=== PATIENT | female | born 1975 | race Caucasian/White ===

== ENCOUNTER → 2017-07-12 | Outpatient (REF) | payer OTHER ==
[2017-07-12 14:02] LABS: URIC ACID 4.2 MG/DL (2.6-6.0)
[2017-07-12 14:02] LABS: C REACTIVE PROTEIN QUANTITATIV 0.82 MG/DL (0.00-0.30); RHEUMATOID FACTOR QUANT < 10.0 IU/ML (0-15.0)
[2017-07-12 14:06] LABS: ERYTHROCYTE SEDIMENTATION RATE 8 mm/hr (0-20)
== END ==
LOC: M LABDRAW1 11:28
DX: M65.311 Trigger thumb, right thumb (principal)

== ENCOUNTER → 2017-08-23 | Outpatient (CLI) | payer OTHER | LOC: M WUC 16:11 | DX: S80.12XA Contusion of left lower leg, initial encounter (principal); X58.XXXA Exposure to other specified factors, initial encounter; Y92.89 Other specified places as the place of occurrence of the external cause | CPT/HCPCS: 73590 ==

== ENCOUNTER → 2017-10-22 | Outpatient (CLI) | payer OTHER | LOC: M WUC 16:35 | DX: S86.111A Strain of other muscle(s) and tendon(s) of posterior muscle group at lower leg level, right leg, initial encounter (principal); X58.XXXA Exposure to other specified factors, initial encounter; Y92.89 Other specified places as the place of occurrence of the external cause | CPT/HCPCS: 73564 ==

== ENCOUNTER → 2017-10-27 | Outpatient (CLI) | payer OTHER | LOC: M RAD 10:42 | DX: N93.8 Other specified abnormal uterine and vaginal bleeding (principal); N85.4 Malposition of uterus | CPT/HCPCS: 76856 ==

== ENCOUNTER → 2017-11-18 | Outpatient (CLI) | payer OTHER | LOC: M RAD 15:10 | DX: S86.111D Strain of other muscle(s) and tendon(s) of posterior muscle group at lower leg level, right leg, subsequent encounter (principal); X58.XXXA Exposure to other specified factors, initial encounter; Y92.9 Unspecified place or not applicable; Y93.9 Activity, unspecified; Y99.9 Unspecified external cause status ==

== ENCOUNTER 2019-02-17 20:50 | Emergency (ER) | payer OTHER ==
[~2019-02-17] VITALS: Ht 160 cm; Wt 79.5 kg
[~2019-02-17 20:50] MED LIST: AZEL1SPR3; BUPR150T5 PO; BUPR1TAB53 PO; ESCI20TA PO; EXCETAB80 PO; MAXA10TA15 PO; OMEP40CA2 PO; VESI5TAB2 PO; XYZA5TAB2 PO
[2019-02-17] MEDS ORDERED: TETRACAINE 0.5% OPHTH SOLN 4ML OU ONE (21:45)
[2019-02-17] MEDS ORDERED: ACETAMINOPHEN 500 MG TAB PO ONE (22:30)
[2019-02-17 22:40] VITALS: BP 121/74
== END 2019-02-17 22:42 | disposition home or self-care (01) ==
LOC: M ED 20:50
DX: G43.109 Migraine with aura, not intractable, without status migrainosus (principal); Z77.098 Contact with and (suspected) exposure to other hazardous, chiefly nonmedicinal, chemicals; Z79.899 Other long term (current) drug therapy; Z91.89 Other specified personal risk factors, not elsewhere classified; Z88.8 Allergy status to other drugs, medicaments and biological substances

== ENCOUNTER → 2019-03-07 | Outpatient (REF) | payer OTHER ==
[2019-03-09 14:07] LABS: HPV HYBRID CAPTURE II Negative (Negative)
== END ==
LOC: M LAB REF 17:21
PROVIDERS: ATTEND Specialist
DX: Z12.4 Encounter for screening for malignant neoplasm of cervix (principal); N76.0 Acute vaginitis
CPT/HCPCS: 87624; G0123

== ENCOUNTER → 2019-05-12 | Outpatient (CLI) | payer OTHER ==
[~2019-05-12] MED LIST changes: -OMEP40CA2 PO; +OMEP40CA97 PO
--- NOTE | 2019-05-12 16:43 | REP ---
Two-view chest: 05/12/2019. Indication: Dyspnea. Cough. Comparison: 03/04/2016. Findings: The lungs are clear. There is no pleural effusion or pneumothorax. The cardiomediastinal silhouette is unremarkable. Impression: No acute cardiopulmonary process. Electronically Signed by Guy Louis DO 05/12/2019 04:34 P
== END ==
LOC: M WUC 15:29
PROVIDERS: ATTEND Physician Assistant
DX: R06.02 Shortness of breath (principal); R05 Cough

== ENCOUNTER → 2019-10-03 | Outpatient (CLI) | payer OTHER ==
--- NOTE | 2019-10-03 15:30 | REP ---
LEFT SECOND DIGIT, FOUR VIEWS: Four views of the left second digit performed. No acute fracture, dislocation or intrinsic bone disease is seen. IMPRESSION: No evidence of acute fracture or dislocation. Electronically Signed by Jeremiah Hollins MD 10/03/2019 03:36 P
== END ==
LOC: M WUC 15:03
PROVIDERS: ATTEND Physician Assistant Medical
DX: M79.645 Pain in left finger(s) (principal)

== ENCOUNTER 2020-05-03 22:23 | Emergency (ER) | payer OTHER ==
[~2020-05-03] VITALS: Ht 160 cm; Wt 97.9 kg
[~2020-05-03 22:23] MED LIST changes: +CONT1TAB PO; +MONT10TA4 PO; +ZONI25CA13 PO
[2020-05-03 23:34] LABS: BASO # 0.1 10^3/uL (0.0-0.2); BASO % 0.6 % (0.0-1.0); EOS # 0.8 10^3/uL (0.0-0.5); EOS % 6.2 % (0.0-3.0); HEMATOCRIT 39.9 % (36.0-47.0); HEMOGLOBIN 13.1 g/dl (12.0-15.5); LYMPH # 3.2 10^3/uL (1.5-5.0); LYMPH % 25.4 % (24.0-44.0); MEAN CORPUSCULAR HEMOGLOBIN 30.3 pg (27.0-33.0); MEAN CORPUSCULAR HGB CONC 32.8 g/dl (32.0-36.5); MEAN CORPUSCULAR VOLUME 92.1 fl (80.0-96.0); MONO # 0.8 10^3/uL (0.0-0.8); MONO % 6.4 % (0.0-5.0); NEUTROPHILS # 7.7 10^3/uL (1.5-8.5); PLATELET COUNT, AUTOMATED 436 10^3/uL (150-450); RED BLOOD COUNT 4.33 10^6/uL (4.00-5.40); WHITE BLOOD COUNT 12.5 10^3/uL (4.0-10.0)
[2020-05-03 23:44] LABS: INR 0.95; PROTHROMBIN TIME 12.9 SECONDS (12.5-14.3)
[2020-05-03 23:51] LABS: HCG, SERUM QUALITATIVE NEGATIVE (NEGATIVE)
[2020-05-03 23:57] LABS: ALBUMIN 3.8 GM/DL (3.2-5.2); ALT/SGPT 56 U/L (12-78); BILIRUBIN,DIRECT 0.1 MG/DL (0.0-0.2); BILIRUBIN,TOTAL 0.3 MG/DL (0.2-1.0); BLOOD UREA NITROGEN 12 MG/DL (7-18); CALCIUM LEVEL 9.6 MG/DL (8.5-10.1); CARBON DIOXIDE LEVEL 29 MEQ/L (21-32); CHLORIDE LEVEL 101 MEQ/L (98-107); CK-MB VALUE MASS 1.1 NG/ML (<3.6); CPK CREATINE PHOSPHOKINASE 90 U/L (26-192); CREATININE FOR GFR 0.88 MG/DL (0.55-1.30); FREE T4 0.81 NG/DL (0.76-1.46); GLOMERULAR FILTRATION RATE > 60.0 (>58); GLUCOSE, FASTING 103 MG/DL (70-100); LIPASE 99 U/L (73-393); MB/CK RELATIVE INDEX 1.22 (< OR =4); NT-PRO BNP 42 PG/ML (<125); POTASSIUM SERUM 4.1 MEQ/L (3.5-5.1); SODIUM LEVEL 136 MEQ/L (136-145); TOTAL PROTEIN 7.5 GM/DL (6.4-8.2); TROPONIN I < 0.02 NG/ML (< 0.10)
[2020-05-04] MEDS ORDERED: ISOVUE-370 76% 100ML VIAL As Ordered ONE (00:28)
[2020-05-04] MEDS ORDERED: COMBIVENT RESPIMAT 100-20MCG INHALER 4GM INH SCH (00:30)
[2020-05-04] MEDS ORDERED: dexameTHASONE 20MG/5ML VIAL (J1100 PER 1MG) IV ONE (00:30)
--- NOTE | 2020-05-04 00:32 | REPVR ---
PROCEDURE INFORMATION: Exam: XR Chest, 1 View Exam date and time: 05/03/2020 12:25 AM Age: 44 years old Clinical indication: Other: Chest pain TECHNIQUE: Imaging protocol: XR of the chest Views: 1 view. COMPARISON: CR CHEST 2 VIEW 03/04/2016 2:13 PM FINDINGS: Lungs: Degree of lung inflation is normal. No evidence of pulmonary edema. No focal consolidation or parenchymal lung mass. Pleural space: No pleural effusion or pneumothorax. Heart/Mediastinum: Cardiac silhouette appears normal. No adenopathy or hilar mass. Bones/joints: Osseous structures show no concerning abnormality. IMPRESSION: No acute or focal cardiopulmonary process. Electronically signed by: Henry Ding On 05/04/2020 00:32:42 AM
--- NOTE | 2020-05-04 01:27 | REPVR ---
PROCEDURE INFORMATION: Exam: CT Angiography Chest With Contrast Exam date and time: 05/04/2020 12:20 AM Age: 44 years old Clinical indication: Shortness of breath; Additional info: SOB TECHNIQUE: Imaging protocol: Computed tomographic angiography of the chest with intravenous contrast. 3D rendering (Not supervised by radiologist): MIP and/or 3D reconstructed images were created by the technologist. Radiation optimization: All CT scans at this facility use at least one of these dose optimization techniques: automated exposure control; mA and/or kV adjustment per patient size (includes targeted exams where dose is matched to clinical indication); or iterative reconstruction. Contrast material: ISO; Contrast volume: 75 ml; Contrast route: INTRAVENOUS (IV); COMPARISON: CR PORTABLE CHEST X-RAY 05/04/2020 12:14 AM FINDINGS: Pulmonary arteries: No focal pulmonary artery filling defect to suggest acute pulmonary embolus. Aorta: No thoracic aortic aneurysm or dissection. Lungs: Pulmonary vascular/interstitial pattern does not suggest active pulmonary edema. No suspicious lung mass or air space process. No central endobronchial lesion. Pleural space: No pleural effusion or pneumothorax. Heart: No overt cardiac enlargement or abnormal volume of pericardial fluid. Lymph nodes: No enlarged mediastinal lymph nodes. Liver: Liver is diffusely enlarged. Bones/joints: Bony structures show no acute fracture or destructive process. IMPRESSION: 1. No evidence of acute pulmonary embolus. 2. No other acute or concerning focal intrathoracic abnormality. 3. Hepatomegaly Electronically signed by: Henry Ding On 05/04/2020 01:26:21 AM
[2020-05-04] MEDS ORDERED: KETOROLAC 30 MG/ML 1ML VIAL IV ONE (02:00)
[2020-05-04 03:03] VITALS: BP 147/87
[2020-05-04] MEDS ORDERED: PRED20TA PO (03:06)
[2020-05-04] MEDS ORDERED: PROV108A INH (03:06)
--- NOTE | 2020-05-04 05:13 | ECGEPIP ---
[facility] - ED Test Date: 2020-05-03 Pat Name: LITTLE GARCIA Department: Room: - Gender: Female Nurse Substance Abuse: JACE : 1975 Requested By: RILEY Monroy Order Number: [id number] Reading MD: Ori Goss Measurements Intervals Berger Rate: 72 P: 47 MT: 159 QRS: 20 QRSD: 95 T: 61 QT: 404 QTc: 445 Interpretive Statements SINUS RHYTHM INCOMPLETE RIGHT BUNDLE BRANCH BLOCK NO PRIORS FOR COMPARISON Electronically Signed on 05-04-2020 5:13:01 EST by Ori Goss
== END 2020-05-04 03:28 | disposition home or self-care (01) ==
LOC: M ED 22:23
DX: J20.9 Acute bronchitis, unspecified (principal); R07.89 Other chest pain; R63.5 Abnormal weight gain; F17.200 Nicotine dependence, unspecified, uncomplicated; Z88.8 Allergy status to other drugs, medicaments and biological substances; Z91.048 Other nonmedicinal substance allergy status; Z79.899 Other long term (current) drug therapy
CPT/HCPCS: 71045; 71275; 80048; 80076; 82550; 82553; 83605; 83690; 83880; 84439; 84443; 84484; 84703; 85025; 85610; 87040; 87486; 87581; 87633; 87798; 93005; 93041; 94640; 94760; 96374; 96375; 99285; J1100; J1885; Q9967

== ENCOUNTER → 2020-06-12 | Outpatient (CLI) | payer OTHER ==
[~2020-06-12] MED LIST changes: -MONT10TA4 PO; +MONT5TAB2 PO; +PRED20TA PO; +PROV108A INH
--- NOTE | 2020-06-17 15:14 | SLEEPCENT ---
NOCTURNAL POLYSOMNOGRAPHY DATE: 06/12/2020 ORDERED BY: TIFFANY Fox Nocturnal polysomnography was performed for evaluation of sleep physiology in this patient with a history of excessive somnolence and nonrestorative sleep. 8 hours and 3 minutes of data were reviewed. There were 402.5 minutes of sleep identified. Sleep latency was prolonged at 34.5 minutes. REM latency was mildly prolonged at 101.5 minutes. Sleep architecture was fair, but there was fragmentation. There were three REM cycles appreciated. Overall sleep efficiency was 84.1%. The electrocardiogram showed a sinus rhythm with an average heart rate of 70 beats per minute. EEG showed mild coarsening in the background and otherwise reasonably normal waveforms for wake and sleep. There were 32 respiratory events identified of 10 seconds in duration or greater for an apnea-hypopnea index of 5.3. The events were obstructive, primarily hypopneas, and not exclusive to sleep stage nor body posture. Arousals from respiratory events in total occurred 1.6 times per hour. There was significant limb activity. Limb movement arousal index was borderline at 7.8. IMPRESSION: Mild obstructive sleep apnea syndrome (G47.33), apnea-hypopnea index 5.3. RECOMMENDATION: Depending on the severity of the patient's symptoms, referral [facility] to [facility] for [facility] could be considered.
== END ==
LOC: M SLEEP 20:00
PROVIDERS: ATTEND Nurse Practitioner Family
DX: G47.33 Obstructive sleep apnea (adult) (pediatric) (principal)

== ENCOUNTER → 2020-06-30 | Outpatient (CLI) | payer OTHER ==
[~2020-06-30] MED LIST changes: +EPIP0.3I2 IM; +TREL1AER PO
== END ==
LOC: M LABSMTC 09:26
PROVIDERS: ATTEND Anesthesiology
DX: Z01.812 Encounter for preprocedural laboratory examination (principal); Z20.822 Contact with and (suspected) exposure to COVID-19

== ENCOUNTER 2020-07-05 09:22 | Day surgery (SDC) | payer OTHER ==
[~2020-07-05] VITALS: Ht 160 cm; Wt 86.2 kg
[~2020-07-05 09:22] MED LIST changes: -ESCI20TA PO; +ESCI20TA16 PO; +NS 1,000 ML IV ONE
--- OUTSIDE RECORDS SUMMARY | 2020-07-05 09:32 | CCD | Continuity of Care Document ---
Author Author Dolores JOHNSON [facility] Organization Unknown Address [address] [place] [id number] Phone [phone] Care Team Providers Care Pharmacy Benefit Manager Name Role Phone Abe Cortez M.D AUTM [phone] Problems Active Problems Provider Date Peptic reflux disease Lorena Gross RPA-C Onset: 02/19 Mixed urinary incontinence Lorena Gross RPA-C Onset: 03/03/2013 Acne Pia Anne D., FNP-Hung Onset: 05/07 Low back pain Bj Johnson RPA Onset: 06/04/2016 Tobacco user Bj Johnson RPA Onset: 06/04/2016 Moderate recurrent major depression Bj Johnson RPA O nset: 06/04/2016 Pain in right hand Bj Johnson RPA Onset: 06/04/2016 Note: COMP. Elevated levels of transaminase & lactic acid dehydrog enase Bj Johnson RPA Onset: 06/05/2016 Migraine Bj Johnson RPA Onset: 03/08/2017 Impaired fasting glycaemia Bj Johnson RPA Onset: Migraine without aura, not refractory Bj Johnson RPA Onset: 09/21/2017 Polyarthropathy Bj Johnson RPA Onset: 10/13/2018 Abnormal involuntary movement Bj Johnson RPA Onset: 10/13/2018 High density lipoprotein deficiency Bj Johnson RPA O nset: 08/22/2019 Incomplete right bundle branch block Bj Johnson RPA Onset: 06/12/2020 Note: [facility] 05/03/20 Large liver Bj Johnson RPA Onset: 06/12/2020 Note: [facility] ER 05/04/20 Social History Type Date Description Comments Sex Unknown Tobacco Use Start: Unknown Current Cigarette Smoker 1 Pack Daily ETOH Use Rarely consumes alcohol Tobacco Use Start: Unknown Patient is a current smoker, smo kes some days Allergies, Adverse Reactions, Alerts Active Allergies Reaction Severity Comments Date Wool severe itching 02/17/2011 Narcotic ? pain, burning feeling pt not sure name of med 02/17/2011 Mobic while taking Mobic put bactr oban on child,face&throat swelld 03/22/2012 Bactroban while taking mobic swollen f thuy & throat 03/22/2012 Bandaids RASH,BLISTERS 10/13/2018 Medications Active Medications SIG Qnty Indications Ordering Provide r Date Trelegy Ellipta 200- 62.5-25mcg/Inh Aerosol 1 puff qd 60units Iam Wills D.O., [facility] 06/20/2020 Montelukast Sodium 10mg Tablets Take One Tablet By Mouth AT Bedtime 90tabs [facility] D.O. , [facility] 02/21/2020 Bupropion Hydrochloride ER (SR) 150mg Tablets ER 12HR Take One Tablet By Mouth Twice A Day 180tabs F33.1 Iam Wills D.O., [facility] 10/13/2018 Escitalopram Oxalate 20mg Tablets Take One Tablet By Mouth Every Day 90tabs Iam Wills D.O., [facility] 07/23/[address] Take One Capsule By Mouth Every Day Maximum Daily Dose = 1 Capsule 90caps Iam Wills D.O., [facility] 08/31/2012 Epipen 2-Bird 0.3mg/0 .3ML Solution Auto-Inject sig as directed 2units Fadi Nickerson M.D. 0 08/31/2012 Vesicare 5mg Tablets 1 by mouth every day 90tabs Iam Wills D.O., [facility] Emgality 120mg/ml Soln Prefill Syr vania inject monthly [place] Zonisamide 50mg Capsules take one capsule by mouth at bedtime 90caps Iam Wills D.O., [facility] History Medications Strattera 40mg Capsules 1 by mouth every day x 2 weeks 30caps Iam Wills D.O., [facility] - 06/27/2020 Trelegy Ellipta 100- 62.5-25mcg/Inh Aerosol 1 puff every day 3units Iam Wills D.O., [facility] 05/29/2020 - 06/20/2020 Contrave 8-90mg Tablets ER 12HR 1 by mouth po qd am x 1 week, then bid x 1 week, then two po am and 1 po pm x 1 week and then 2 po bid. 120tabs Iam Wills D.O., [facility] - 05/29/2020 Cefdinir 300mg Capsules one cap po bid x 10 days 20caps Iam Wills D.O., [facility] 04/2020 - 03/11/2020 Tessalon Perles 100mg Capsules one cap po tid prn cough 45caps [facility] Wills D.O., [facility] 04/2020 - 03/15/2020 Medications Administered in Office Medication SIG Qnty Indications Ordering Provider Date Injection (SC)/(Im) Injection Pia Anne D., DANITA-Hung 03/21/2015 Immunizations CPT Code Status Date Vaccine Reaction Lot # [id number] Given 03/18/2020 Influenza Virus Vaccine, Quadrivalent, Slit Virus, Im Use 3Y & Up [id number] Given 03/21/2015 Influenza Virus Vac. Split Virus Individuals 3 Years And Above [id number] Refused 05/11/2019 Influenza Virus Vaccine, Quadrivalent, Slit Virus, Im Use 3Y & Up RECEIVED AT WORK 03/2019 Vital Signs Date Vital Result Comment 06/27/2020 11:53am BP Systolic 136 mmHg BP Diastolic 74 mmHg Body Temperature 97.8 F Heart Rate 99 /min Respiratory Rate 16 /min Height 62 inches 5'2" [place] Body Weight 110 lb O2 % BldC Oximetry 96 % 06/20/2020 11:40am BP Systolic 104 mmHg BP Diastolic 62 mmHg Body Temperature 97.2 F Heart Rate 95 /min Respiratory Rate 16 /min Height 62 inches 5'2" Weight 196.00 lb [place] Body Weight 110 lb BMI (Body Mass Index) 35.8 kg/m2 O2 % BldC Oximetry 95 % Results Test Acquired Date Facility Test Result H/L Range Note CBC With Differential 05/03/2020 [facility]) [phone] White Blood Count 12.5 10 High 4.0-10.0 Red Blood Count 4.33 10 Normal 4.00-5.40 Hemoglobin 13.1 g/dL Normal 12.0-15.5 Hematocrit 39.9 % Normal 36.0-47.0 Mean Corpuscular Volume 92.1 fl Normal 80.0-96.0 Mean Corpuscular Hemoglobin 30.3 pg Normal 27.0-33.0 Mean Corpuscular HGB Conc 32.8 g/dL Normal 32.0-36.5 Red Cell Distribution Width 13.1 % Normal 11.5-14.5 Platelet Count, Automated 436 10 Normal 150-450 Neutrophils % 61.0 % Normal 36.0-66.0 Lymph % 25.4 % Normal 24.0-44.0 [place] % 6.4 % High 0.0-5.0 Eos % 6.2 % High 0.0-3.0 Baso % 0.6 % Normal 0.0-1.0 Immature Granulocyte % 0.4 % Normal 0-3.0 Nucleated Red Blood Cell % 0.0 % Normal 0-0 Neutrophils # 7.7 10 Normal 1.5-8.5 Lymph # 3.2 10 Normal 1.5-5.0 [place] # 0.8 10 Normal 0.0-0.8 Eos # 0.8 10 High 0.0-0.5 Baso # 0.1 10 Normal 0.0-0.2 Prothrombin Time/Inr 05/03/2020 [facility]) [phone] Prothrombin Time 12.9 seconds Normal 12.5-14.3 Inr 0.95 Normal 1 Laboratory test finding 05/03/2020 [facility] ([facility]) [phone] Lactic Acid Sepsis Protocol 1.6 mmol/L Normal 0.4- 2.0 2 Cardiac Marker Panel 05/03/2020 [facility]) [phone] CPK Creatine Phosphokinase 90 U/L Normal 26-19 2 CK-MB Value Mass 1.1 NG/ML Normal <3.6 MB/CK Relative Index 1.22 Normal < Or =4 3 Troponin I < 0.02 NG/ML Normal < 0.10 4 Liver Profile 05/03/2020 [facility]) [phone] Ast/Sgot 24 U/L Normal 7-37 Alt/SGPT 56 U/L Normal 12-78 Alkaline Phosphatase 101 U/L Normal 45-117 Bilirubin,Total 0.3 mg/dL Normal 0.2-1.0 Bilirubin,Direct 0.1 mg/dL Normal 0.0-0.2 Total Protein 7.5 GM/DL Normal 6.4-8.2 Albumin 3.8 GM/DL Normal 3.2-5.2 Albumin/Globulin Ratio 1.0 Low 1.2-2.2 Basic Metabolic Profile 05/03/2020 [facility] ([facility]) [phone] Glucose, Fasting 103 mg/dL High 70-100 Blood Urea Nitrogen 12 mg/dL Normal 7-18 Creatinine For GFR 0.88 mg/dL Normal 0.55-1.30 Glomerular Filtration Rate > 60.0 Normal >58 5 Sodium Level 136 mEq/L Normal 136-145 Potassium Serum 4.1 mEq/L Normal 3.5-5.1 Chloride Level 101 mEq/L Normal 98-107 Carbon Dioxide Level 29 mEq/L Normal 21-32 Anion Gap 6 mEq/L Low 8-16 Calcium Level 9.6 mg/dL Normal 8.5-10.1 Laboratory test finding 05/03/2020 [facility] ([facility]) [phone] NT-Pro BNP 42 pg/mL Normal <125 6 Lipase 99 U/L Normal 73-393 7 Thyroid Stimulating Hormone 3.160 uIU/ML Normal 0.358-3.740 8 Free T4 0.81 ng/dL Normal 0.76-1.46 9 HCG Serum Qualitative NEGATIVE Normal Negative 10 Blood Culture 05/03/2020 [facility]) [phone] Blood Culture No growth after <SEE NOTE> 11 Respiratory Panel 05/03/2020 [facility] [phone] Respiratory Panel This respiratory <SEE NOTE> 12 Ebv Antibody Profile 03/18/2020 [facility] [place] Ebv Ab Vca, IgM <36.0 U/mL 0.0-35.9 13 Ebv Ab Vca, IgG 313.0 U/mL High 0.0-17.9 14 Ebv Nuclear Antigen Ab, IgG 278.0 U/mL High 0.0-17.9 15 Interpretation: See Comment: 16 CMP 03/18/2020 [facility] Glu 122 mg/dL High 70 - 110 17 BUN 9 mg/dL 8 - 23 Creat 0.8 mg/dL 0.5 - 1.0 BUN/Creatinine Ratio 11.4 CALC Na 131 mmol/L Low 136 - 145 K 4.3 mmol/L 3.5 - 5.1 CL 98.9 mmol/L 98.0 - 107.0 Co2 19.5 mmol/L Low 22.0 - 29.0 CA 9.3 mg/dL 8.6 - 10.2 TP 6.7 g/dL 6.6 - 8.7 Alb 4.2 g/dL 3.4 - 4.8 A/G Ratio 1.7 CALC Globulin 2.5 CALC Alp 90.2 U/L 35 - 129 Alt (SGPT) 34 U/L 0 - 41 Ast (Sgot) 22 U/L 0 - 40 Tbili 0.16 mg/dL 0.0 - 1.2 Osmolality-Calculated 263.5 CALC Anion Gap 17 mmol/L eGFR 102 # Calc 18 eGFR Non-Afr. [place] 88 # Calc 19 CBC With Differential/Platelet 03/01/2020 [facility] N E WBC 10.4 x10E3/uL 3.4-10.8 RBC 4.61 x10E6/uL 3.77-5.28 Hemoglobin 14.2 g/dL 11.1-15.9 Hematocrit 42.1 % 34.0-46.6 MCV 91 fL 79-97 MCH 30.8 pg 26.6-33.0 MCHC 33.7 g/dL 31.5-35.7 RDW 13.0 % 11.7-15.4 Platelets 497 x10E3/uL High 150-450 Neutrophils 62 % Not Estab. Lymphs 23 % Not Estab. Monocytes 6 % Not Estab. Eos 8 % Not Estab. Basos 1 % Not Estab. Immature Cells TNP Neutrophils (Absolute) 6.4 x10E3/uL 1.4-7.0 Lymphs (Absolute) 2.4 x10E3/uL 0.7-3.1 Monocytes(Absolute) 0.6 x10E3/uL 0.1-0.9 Eos (Absolute) 0.8 x10E3/uL High 0.0-0.4 Baso (Absolute) 0.1 x10E3/uL 0.0-0.2 Immature Granulocytes 0 % Not Estab. Immature Grans (Abs) 0.0 x10E3/uL 0.0-0.1 NRBC TNP Hematology Comments: TNP 1 THERAPUTIC HUMAN INR VALUES INDICATIONS NORMAL RANGES PROPHYLAXIS/TREATMENT OF: VENOUS THROMBOSIS 2.0-3.0 PULMONARY EMBOLISM 2.0-3.0 PREVENTION OF SYSTEMIC EMBOLISM FROM: TISSUE HEART VALVES 2.0-3.0 ACUTE MYOCARDIAL INFARCTION 2.0-3.0 VALVULAR HEART DISEASE 2.0-3.0 ATRIAL FIBRILLATION 2.0-3.0 MECHANICAL VALVES(HIGH RISK) 2.5-3.5 RECURRENT MYOCARDIAL INFARCTION 2.5-3.5 2 Y/N query for Sepsis Lactate Rule: Y 3 DIAGNOSIS CRITERIA MMB ng/ml Relative Index (RI) NON-AMI < or = 5 N/A FONSECA ZONE > 5 < or = 4 AMI > 5 > 4 4 Troponin I Reference Interva l for [employer] LOCI: 99th Percentile= 0.00-0.045 ng/ml Risk Stratification: <= 0.10 ng/ml Decreased Risk for Adverse Clinical Events. 0.10-1.50 ng/ml Increased Risk for Adv erse Clinical Events. Evaluation of additional criterion and/or repeat testing in 2-6 hours is suggested to rule out myocardial damage. >= 1.50 ng/ml Indicative of Myocardial Injury. 5 Units are mL/min/1.73 m2 Chronic Kidney Disease Staging per NKF: Stage I & II GFR >=60 Normal to Mildly Decreased Stage III GFR 30-59 Moderately Decreased Stage IV GFR 15-29 Severely Decreased Stage V GFR <15 Very Little GFR Left ESRD GFR <15 on DISC RECORDIST 2244] @---END MOBILAB COMMEN T--- 2244] @---END MOBILAB COMMEN T--- 2244] @---END MOBILAB COMMEN T--- 2244] @---END MOBILAB COMMEN T--- 2244] @---END MOBILAB COMMEN T--- 11 No growth after 72 hours . A ll specimens observed for 5 days. Results final at that time. No growth after 48 hours . All specimens observed for 5 days. Results final at that time. No growth after 24 hours . All specimens observed for 5 days. Results final at that time. NO GROWTH AFTER 5 DAYS 12 This respiratory PCR panel d etects Influenza A H1, H3 and 2009 H1 viruses, Influenza B virus, Resp iratory Syncytial Virus, Human metapneumovirus, Parainfluenza virus 1, 2, 3 and 4, Adenovirus, Rhinovirus/Enterovirus, Coronavirus HKU1, NL63, OC43, 229E and SARS-CoV-2 (COVID 19), Bordetella pertussis, Bordetella parapertussis, Mycoplasma pneumoniae and Chlamydia pneumoniae. NEGATIVE by MULTIPLEXED NUCLEIC ACID PCR SARS-CoV-2 (COVID 19) NEGATIVE - SARS-CoV-2 (COVID19) 13 Negative <36.0 Equivocal 36.0 - 43.9 Positive >43.9 14 Negative <18.0 Equivocal 18.0 - 21.9 Positive >21.9 15 Negative <18.0 Equivocal 18.0 - 21.9 Positive >21.9 16 EBV Interpretation Chart [place]: Antibody Present + Antibody Absent - Interpretation VCA-IgM VCA-IgG EBNA-IgG No previous infection/ - - - Susceptible Primary infection (new + + - or recent) Past Infection +or- + + See comment below* + - - *Results indicate infection with EBV at some time however cannot predict the timing of the infection since antibodies to EBNA usually develop after primary infection or, alternatively, approximately 5-10% of patients with EBV never develop antibodies to EBNA. 17 CHRONIC KIDNEY DISEASE STAGI NG PER NKF: MALE GFR INTERPRETATION: 20-49 YRS: >60 mL/min Normal 50-59 YRS: >56 mL/min Normal 60-69 YRS: >49 mL/min Normal 70-79 YRS: >42 mL/min Normal 80 and above >35 mL/min Normal FEMALE GRF INTERPRETATION: 20-39 YRS: >60 mL/min Normal 40-49 YRS: >58 mL/min Normal 50-59 YRS: >51 mL/min Normal 60-69 YRS: >45 mL/min Normal 70-79 YRS: >39 mL/min Normal 80 and above >32 mL/min Normal 18 CKD-EPI 19 CKD-EPI Procedures Date Code Description Status 06/27/2020 63728 Remove Skin Tags Up To 15 Comple gab[employer] [employer] Description No Information Available Encounters Type Date Location Provider Dx Diagnosis Office Visit 06/20/2020 11:00a [place] [facility] Bj Johnson, RP A R25.1 Tremor, unspecified N39.46 Mixed incontinence M54.5 Low back pain M13.0 Polyarthritis, unspecified R73.01 Impaired fasting glucose F17.210 Nicotine dependence, cigaret bud, uncomplicated 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 F33.1 Major depressive disorder, r ecurrent, moderate 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, predom inattentive type Office Visit 05/29/2020 2:20p [place] [facility] Bj Johnson, RP A R06.02 Shortness of breath Office Visit 03/18/2020 10:40a [place] [facility] Bj Johnson, RP A R25.1 Tremor, unspecified N39.46 Mixed incontinence M54.5 Low back pain M13.0 Polyarthritis, unspecified R73.01 Impaired fasting glucose F17.210 Nicotine dependence, cigaret bud, uncomplicated 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 F33.1 Major depressive disorder, r ecurrent, moderate E66.09 Other obesity due to excess calories G47.9 Sleep disorder, unspecified Z23 Encounter for immunization R53.83 Other fatigue Office Visit 03/01/2020 2:20p [place] [facility] Don Wilkinson PA J01.00 Acute maxillary sinusitis, unspecified H92.02 Otalgia, left ear Assessments Date Code Description Provider 06/27/2020 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 Bj Johnson, RPA 06/20/2020 R25.1 Tremor, unspecified Jonas Johnson, RPA 06/20/2020 N39.46 Mixed incontinence Vikas Johnson, RPA 06/20/2020 M54.5 Low back pain Bj Johnson, RPA 06/20/2020 M13.0 Polyarthritis, unspecified Bj Pond, RPA 06/20/2020 R73.01 Impaired fasting glucose Bj Johnson, RPA 06/20/2020 F17.210 Nicotine dependence, cigarettes, uncomplicated Bj Johnson, RPA 06/20/2020 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 Carlos Johnson, RPA 06/20/2020 F33.1 Major depressive disorder, recur rent, moderate Bj Johnson, RPA 06/20/2020 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, predominantly inattentive type Bj Johnson, RPA 05/29/2020 R06.02 Shortness of breath Jonas Johnson, RPA 04/26/2020 R07.9 Chest pain Dm Wilkinson PA 04/26/2020 R06.02 Dyspnea Dm Wilkinson PA 03/18/2020 R25.1 Tremor, unspecified Jonas Johnson, RPA 03/18/2020 N39.46 Mixed incontinence Vikas Johnson, RPA 03/18/2020 M54.5 Low back pain Bj Johnson, RPA 03/18/2020 M13.0 Polyarthritis, unspecified Bj Pond, RPA 03/18/2020 R73.01 Impaired fasting glucose Bj Johnson, RPA 03/18/2020 F17.210 Nicotine dependence, cigarettes, uncomplicated Bj Johnson, RPA 03/18/2020 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 Carlos Johnson, RPA 03/18/2020 F33.1 Major depressive disorder, recur rent, moderate Bj Johnson, RPA 03/18/2020 E66.09 Other obesity due to excess juan hosea Bj Johnson, RPA 03/18/2020 G47.9 Sleep disorder, unspecified Bj Duran, RPA 03/18/2020 Z23 Encounter for immunization Bj Pond, RPA 03/18/2020 R53.83 Other fatigue Bj Johnson, RPA 03/01/2020 J01.00 Acute maxillary sinusitis Sarina Mills PA 03/01/2020 H92.02 Otalgia Dm Wilkinson PA Plan of Treatment Future Appointment(s):* 07/04/2020 3:00 pm - Bj Johnson, RPA at [place] [facility] Functional Status Description No Information Available Mental Status Description No Information Available Referrals Refer to Reason for Referral Status Appt Date [facility] Pulmonary Sleep disorder-awakens tired-snores Sent 07/04/2019 [id number] [place] [address] [phone]
--- OUTSIDE RECORDS SUMMARY | 2020-07-05 09:32 | CCD | Continuity of Care Document ---
Author Author Andra/Dolores ROWLEY Organization Unknown Address [address] [place] [address] Phone [phone] Care Team Providers Care Contract Engineer Name Role Phone Bj Johnson AUTM [phone] Problems Active Problems Provider Date Occipital headache Nadya Molina M.D. Onset: 02/22/2019 Migraine Nadya Molina M.D. Onset: 02/22/2019 Tremor Nadya Molina M.D. Onset: 02/22/2019 Social History Type Date Description Comments Sex Unknown Tobacco Use Start: Unknown Heavy tobacco smoker (more than 10 cigarettes/day) Allergies, Adverse Reactions, Alerts Active Allergies Reaction Severity Comments Date Mobic 02/22/2019 Gabapentin 02/22/2019 Latex 02/22/2019 Wool Anaphylaxis, Rash -Carry EPI pen 04/26/2019 Bandaids Contact dermatitis 9 Medications Active Medications SIG Qnty Indications Ordering Provide r Date Zonisamide 50mg Capsules take 1 capsule at bedtime 90caps Nadya Molina M.D. 08/17/2019 Zonisamide 50mg Capsules take one capsule at bedtime. patient is waiting for 30 day supply mail order pharmacy to send it to her. 14caps Nadya Molina M.D. 08/17/2019 Emgality 120mg/ml Solution Auto-In ject dispense one 120mg sc injection once per month. 3ml Nadya Molina M.D. 02/22/2019 Immunizations Description No Information Available Vital Signs Date Vital Result Comment 04/01/2020 12:16pm Respiratory Rate 12 /min Height 63 inches 5'3" Weight 180.00 lb BMI (Body Mass Index) 31.9 kg/m2 [place] Body Weight 115 lb 08/17/2019 11:16am BP Systolic 130 mmHg BP Diastolic 72 mmHg Heart Rate 76 /min Respiratory Rate 12 /min Height 63 inches 5'3" Weight 180.00 lb BMI (Body Mass Index) 31.9 kg/m2 [place] Body Weight 115 lb Results Description No Information Available Procedures Date Code Description Status 06/28/2020 57399 Sympathetic Skin Responses Compl eted 06/28/2020 88756 Sympathetic Skin Responses Compl eted 06/28/2020 90396 Test Autonomic Nervous System, C ardiovagal Innervation Completed 06/28/2020 63697 Test Autonomic Nervous System, C ardiovagal Innervation Completed 06/28/2020 30378 Artery Study Extremity Mult Leve ls Bilateral Completed 06/28/2020 63335 Artery Study Extremity Mult Leve ls Bilateral Completed 06/28/2020 90692 Artery Study Extremity Mult Leve ls Bilateral Completed 06/28/2020 89146 Artery Study Extremity Mult Leve ls Bilateral Completed Medical Devices Description No Information Available Encounters Type Date Location Provider Dx Diagnosis Office Visit 04/01/2020 12:00p [facility] Nadya guzmán M.D. G43.119 Migraine with aura, intractable, without status migrainosus Assessments Date Code Description Provider 06/28/2020 I95.1 Orthostatic hypotension Nadya jean M.D. 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 06/28/2020 I73.00 Raynaud's syndrome without gangr angélica Ans/VS 04/01/2020 G43.119 Migraine with aura, intractable, without status migrainosus Nadya Molina M.D. Plan of Treatment Future Appointment(s):* 08/19/2020 11:15 am - Nadya Molina M.D. at [facility] Functional Status Description No Information Available Mental Status Description No Information Available Referrals Refer to Dr Reason for Referral Status Appt Date Sohan Montenegro, [place] [place] Created 0 Opthalmology [id number] [place] [id number] [phone]
--- OUTSIDE RECORDS SUMMARY | 2020-07-05 09:33 | CCD | Continuity of Care Document ---
Author Author Dolores JOHNSON [facility] Organization Unknown Address [address] [place] [address] Phone [phone] Care Team Providers Care Bit Bender Name Role Phone Abe Cortez M.D AUTM [phone] Problems Active Problems Provider Date Peptic reflux [...] liver Bj Johnson RPA Onset: 06/12/2020 Note: [facility] ER 05/04/20 Social History Type [...] 1 puff qd 60units Iam Wills D.O., [facility] 06/20/2020 Strattera 40mg Capsules 1 by mouth every day x 2 weeks 30caps Iam iWlls D.O., FAAFP Montelukast Sodium 10mg Tablets Take One Tablet By Mouth AT Bedtime 90tabs Iam Wills D.O. , FAAFP 02/21/2020 Bupropion Hydrochloride ER (SR) 150mg Tablets ER 12HR Take One Tablet By Mouth Twice A Day 180tabs F33.1 Iam Wills D.O., FAAFP 10/13/2018 Escitalopram Oxalate 20mg Tablets Take One Tablet By Mouth Every Day 90tabs Iam Wills D.O., FAAFP 07/23/[address] Take One Capsule By Mouth Every Day Maximum Daily Dose = 1 Capsule 90caps Ima Wills D.O., FAAFP 08/31/2012 Epipen 2-Bird 0.3mg/0 .3ML Solution Auto-Inject sig as directed 2units Fadi Nickerson M.D. 0 08/31/2012 Vesicare 5mg Tablets 1 by mouth every day 90tabs Iam Wills D.O., FAAFP Emgality 120mg/ml Soln Prefill Syr vania inject monthly [place] Zonisamide 50mg Capsules take one capsule by mouth at bedtime 90caps Iam Wills D.O., FAAFP History Medications Trelegy Ellipta 100- 62.5-25mcg/Inh Aerosol 1 puff [...] x 10 days 20caps Iam Wills D.O., FAAFP 04/2020 - 03/11/2020 Tessalon Perles 100mg Capsules one cap po tid prn cough 45caps Iam Wills D.O., FAAFP 04/2020 - 03/15/2020 Medications Administered in Office Medication SIG Qnty Indications Ordering Provider Date Injection (SC)/(Im) Injection Pia Anne D., DANITA-C 03/21/2015 Immunizations CPT Code Status Date Vaccine Reaction Lot # [id number] Given 03/18/2020 Influenza Virus Vaccine, Quadrivalent, Slit Virus, Im Use 3Y & Up [id number] Given 03/21/2015 Influenza Virus Vac. Split Virus Individuals 3 Years And Above [id number] Refused 05/11/2019 Influenza Virus Vaccine, Quadrivalent, Slit Virus, Im Use 3Y & Up RECEIVED AT WORK 03/2019 Vital Signs Date Vital Result Comment 06/20/2020 11:40am BP Systolic 104 mmHg BP Diastolic 62 mmHg Body Temperature 97.2 F Heart Rate 95 /min Respiratory Rate 16 /min Height 62 inches 5'2" Weight 196.00 lb [place] Body Weight 110 lb BMI (Body Mass Index) 35.8 kg/m2 O2 % BldC Oximetry 95 % 05/29/2020 2:32pm BP Systolic 126 mmHg BP Diastolic 62 mmHg Body Temperature 97.5 F Heart Rate 95 /min Respiratory Rate 16 /min Height 62 inches 5'2" Weight 196.00 lb [place] Body Weight 110 lb BMI (Body Mass Index) 35.8 kg/m2 O2 % BldC Oximetry 98 % Results Test Acquired Date Facility Test Result H/L Range Note CBC With Differential 05/03/2020 [facility]) [phone] White Blood Count 12.5 10 High 4.0-10.0 [...] 36.0-66.0 Lymph % 25.4 % Normal 24.0-44.0 [place] % 6.4 % High 0.0-5.0 Eos % 6.2 % High 0.0-3.0 Baso % 0.6 % Normal 0.0-1.0 Immature Granulocyte % 0.4 % Normal 0-3.0 Nucleated Red Blood Cell % 0.0 % Normal 0-0 Neutrophils # 7.7 10 Normal 1.5-8.5 Lymph # 3.2 10 Normal 1.5-5.0 [place] # 0.8 10 Normal 0.0-0.8 Eos # 0.8 10 High 0.0-0.5 Baso # 0.1 10 Normal 0.0-0.2 Prothrombin Time/Inr 05/03/2020 [facility]) [phone] Prothrombin Time 12.9 seconds Normal 12.5-14.3 Inr 0.95 Normal 1 Laboratory test finding 05/03/2020 [facility] (Interface) [phone] Lactic Acid Sepsis Protocol 1.6 mmol/L Normal 0.4- 2.0 2 Cardiac Marker Panel 05/03/2020 [facility]) [phone] CPK Creatine Phosphokinase 90 U/L Normal 26-19 2 CK-MB Value Mass 1.1 NG/ML Normal <3.6 MB/CK Relative Index 1.22 Normal < Or =4 3 Troponin I < 0.02 NG/ML Normal < 0.10 4 Liver Profile 05/03/2020 [facility]) [phone] Ast/Sgot 24 U/L Normal 7-37 Alt/SGPT 56 U/L Normal 12-78 Alkaline Phosphatase 101 U/L Normal 45-117 Bilirubin,Total 0.3 mg/dL Normal 0.2-1.0 Bilirubin,Direct 0.1 mg/dL Normal 0.0-0.2 Total Protein 7.5 GM/DL Normal 6.4-8.2 Albumin 3.8 GM/DL Normal 3.2-5.2 Albumin/Globulin Ratio 1.0 Low 1.2-2.2 Basic Metabolic Profile 05/03/2020 [facility] (Interface) [phone] Glucose, Fasting 103 mg/dL High 70-100 Blood [...] mg/dL Normal 8.5-10.1 Laboratory test finding 05/03/2020 [facility] (Interface) [phone] NT-Pro BNP 42 pg/mL Normal <125 6 Lipase 99 U/L Normal 73-393 7 Thyroid Stimulating Hormone 3.160 uIU/ML Normal 0.358-3.740 8 Free T4 0.81 ng/dL Normal 0.76-1.46 9 HCG Serum Qualitative NEGATIVE Normal Negative 10 Blood Culture 05/03/2020 [facility]) [phone] Blood Culture No growth after <SEE NOTE> 11 Respiratory Panel 05/03/2020 [facility]) [phone] Respiratory Panel This respiratory <SEE NOTE> 12 [...] eGFR 102 # Calc 18 eGFR Non-Afr. Guyanese 88 # Calc 19 CBC With Differential/Platelet [...] 4 Troponin I Reference Interva l for [place] LOCI: 99th Percentile= 0.00-0.045 ng/ml Risk Stratification: [...] Little GFR Left ESRD GFR <15 on PLASTIC WELDING MACHINE OPERATOR 2244] @---END MOBILAB COMMEN T--- 2244] @---END MOBILAB COMMEN T--- 2244] @---END MOBILAB COMMEN T--- 2244] @---END MOBILAB COMMEN T--- 2244] @---END MOBILAB COMM T--- 11 No growth after 72 hours [...] mL/min Normal 18 CKD-EPI 19 CKD-EPI Procedures Description No Information Available Medical Devices Description No Information Available Encounters Type Date Location Provider Dx Diagnosis Office Visit 06/20/2020 11:00a [facility] Bj Johnson, RP A R25.1 Tremor, unspecified N39.46 Mixed incontinence M54.5 Low back pain M13.0 Polyarthritis, unspecified R73.01 Impaired fasting glucose F17.210 Nicotine dependence, cigaret bud, uncomplicated 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 F33.1 Major depressive disorder, r ecurrent, moderate 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, predom inattentive type Office Visit 05/29/2020 2:20p [facility] Bj Johnson, RP A R06.02 Shortness of breath Office Visit 03/18/2020 10:40a [facility] Bj Johnson, RP A R25.1 Tremor, unspecified N39.46 Mixed incontinence M54.5 Low back pain M13.0 Polyarthritis, unspecified R73.01 Impaired fasting glucose F17.210 Nicotine dependence, cigaret bud, uncomplicated 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 F33.1 Major depressive disorder, r ecurrent, moderate E66.09 Other obesity due to excess calories G47.9 Sleep disorder, unspecified Z23 Encounter for immunization R53.83 Other fatigue Office Visit 03/01/2020 2:20p [facility] Don Wilkinson, PA J01.00 Acute maxillary sinusitis, unspecified H92.02 Otalgia, left ear Assessments Date Code Description Provider 06/20/2020 R25.1 Tremor, unspecified Jonas Johnson, RPA 06/20/2020 N39.46 Mixed incontinence Vikas Johnson D, RPA 06/20/2020 M54.5 Low back pain Bj Johnson, RPA 06/20/2020 M13.0 Polyarthritis, unspecified Bj Pond, RPA 06/20/2020 R73.01 Impaired fasting glucose Bj Johnson, RPA 06/20/2020 F17.210 Nicotine dependence, cigarettes, uncomplicated Bj Johnson, RPA 06/20/2020 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
--- OUTSIDE RECORDS SUMMARY | 2020-07-05 09:33 | CCD | Continuity of Care Document ---
Author Author Dolores JOHNSON [facility] Organization Unknown Address [address] [place] [address] Phone [phone] Care Team Providers Care Bungy Jump Master Name Role Phone Abe Cortez M.D AUTM [phone] Problems Active Problems Provider Date Peptic reflux [...] liver Bj Johnson RPA Onset: 06/12/2020 Note: [facility] ER 05/04/20 Social History Type Date Description [...] 1 puff qd 60units Iam Wills D.O., [facility] 06/20/2020 Strattera 40mg Capsules 1 by mouth every day x 2 weeks 30caps Iam Wills D.O., FAAFP Montelukast Sodium 10mg Tablets Take [...] Date Injection (SC)/(Im) Injection Pia Anne D., REGISTERED PRIVATE DUTY NURSE-C 03/21/2015 Immunizations CPT Code Status Date Vaccine Reaction Lot # [id number] Given 03/18/2020 Influenza Virus Vaccine, Quadrivalent, Slit Virus, Im Use 3Y & Up [id number] Given 03/21/2015 Influenza Virus Vac. Split Virus Individuals 3 Years And Above [id number] Refused 05/11/2019 Influenza Virus Vaccine, Quadrivalent, Slit Virus, Im Use 3Y & Up RECEIVED AT WORK 03/2019 Vital Signs Date Vital Result Comment 05/29/2020 2:32pm BP Systolic 126 mmHg BP Diastolic 62 mmHg Body Temperature 97.5 F Heart Rate 95 /min Respiratory Rate 16 /min Height 62 inches 5'2" Weight 196.00 lb [place] Body Weight 110 lb BMI (Body Mass Index) 35.8 kg/m2 O2 % BldC Oximetry 98 % 03/18/2020 10:57am BP Systolic 112 mmHg BP Diastolic 72 mmHg Body Temperature 97.5 F Heart Rate 91 /min Respiratory Rate 16 /min Height 62 inches 5'2" Weight 193.00 lb [place] Body Weight 110 lb BMI (Body Mass Index) 35.3 kg/m2 O2 % BldC Oximetry 96 % Results Test Acquired Date Facility Test Result H/L Range Note CBC With Differential 05/03/2020 [facility]) [phone] White Blood Count 12.5 10 High 4.0-10.0 [...] 36.0-66.0 Lymph % 25.4 % Normal 24.0-44.0 [place] % 6.4 % High 0.0-5.0 Eos % 6.2 % High 0.0-3.0 Baso % 0.6 % Normal 0.0-1.0 Immature Granulocyte % 0.4 % Normal 0-3.0 Nucleated Red Blood Cell % 0.0 % Normal 0-0 Neutrophils # 7.7 10 Normal 1.5-8.5 Lymph # 3.2 10 Normal 1.5-5.0 [place] # 0.8 10 Normal 0.0-0.8 Eos # 0.8 10 High 0.0-0.5 Baso # 0.1 10 Normal 0.0-0.2 Prothrombin Time/Inr 05/03/2020 [facility]) [phone] Prothrombin Time 12.9 seconds Normal 12.5-14.3 Inr 0.95 Normal 1 Laboratory test finding 05/03/2020 [facility] (Interface) [phone] Lactic Acid Sepsis Protocol 1.6 mmol/L Normal 0.4- 2.0 2 Cardiac Marker Panel 05/03/2020 [facility]) [phone] CPK Creatine Phosphokinase 90 U/L Normal 26-19 2 CK-MB Value Mass 1.1 NG/ML Normal <3.6 MB/CK Relative Index 1.22 Normal < Or =4 3 Troponin I < 0.02 NG/ML Normal < 0.10 4 Liver Profile 05/03/2020 [facility]) [phone] Ast/Sgot 24 U/L Normal 7-37 Alt/SGPT 56 U/L Normal 12-78 Alkaline Phosphatase 101 U/L Normal 45-117 Bilirubin,Total 0.3 mg/dL Normal 0.2-1.0 Bilirubin,Direct 0.1 mg/dL Normal 0.0-0.2 Total Protein 7.5 GM/DL Normal 6.4-8.2 Albumin 3.8 GM/DL Normal 3.2-5.2 Albumin/Globulin Ratio 1.0 Low 1.2-2.2 Basic Metabolic Profile 05/03/2020 [facility] (Interface) [phone] Glucose, Fasting 103 mg/dL High 70-100 Blood [...] mg/dL Normal 8.5-10.1 Laboratory test finding 05/03/2020 [facility] (Interface) [phone] NT-Pro BNP 42 pg/mL Normal <125 6 Lipase 99 U/L Normal 73-393 7 Thyroid Stimulating Hormone 3.160 uIU/ML Normal 0.358-3.740 8 Free T4 0.81 ng/dL Normal 0.76-1.46 9 HCG Serum Qualitative NEGATIVE Normal Negative 10 Blood Culture 05/03/2020 [facility]) [phone] Blood Culture No growth after <SEE NOTE> 11 Respiratory Panel 05/03/2020 [facility]) [phone] Respiratory Panel This respiratory <SEE NOTE> 12 [...] eGFR 102 # Calc 18 eGFR Non-Afr. 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 F33.1 Major depressive disorder, r ecurrent, moderate 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, predom inattentive type Office Visit 05/29/2020 2:20p [place] [facility] Bj Johnson, RP A R06.02 Shortness of breath Office Visit 03/18/2020 10:40a [place] [facility] Bj Johnson, RP A R25.1 Tremor, unspecified N39.46 Mixed incontinence M54.5 Low back pain M13.0 Polyarthritis, unspecified R73.01 Impaired fasting glucose F17.210 Nicotine dependence, cigaret bud, uncomplicated 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 F33.1 Major depressive disorder, r ecurrent, moderate E66.09 Other obesity due to excess calories G47.9 Sleep disorder, unspecified Z23 Encounter for immunization R53.83 Other fatigue Office Visit 03/01/2020 2:20p [place] [facility] Don Wilkinson, PA J01.00 Acute maxillary [...] pain Dm Wilkinson PA 04/26/2020 R06.02 Dyspnea mD Wilkinson PA 03/18/2020 R25.1 Tremor, unspecified Jonas [...] Otalgia Dm Wilkinson PA Plan of Treatment No Information Available Functional Status Description No Information Available Mental Status Description No Information Available Referrals Refer to Reason for Referral Status Appt Date [facility] Pulmonary Sleep disorder-awakens tired-snores Sent 07/04/2019 [address] [place] [address] [phone]
--- OUTSIDE RECORDS SUMMARY | 2020-07-05 09:33 | CCD | Continuity of Care Document ---
Author Author Dolores JOHNSON [facility] Organization Unknown Address [address] [place] [address] Phone [phone] Care Team Providers Care Ecological Economist Name Role Phone Abe Cortez M.D AUTM [phone] Problems Active Problems Provider Date Peptic reflux [...] deficiency Bj Johnson RPA O nset: 08/22/2019 Social History Type Date Description Comments Sex [...] Indications Ordering Provide r Date Trelegy Ellipta 100- 62.5-25mcg/Inh Aerosol 1 puff every day 3units Iam Wills D.O., F FP 05/29/2020 Montelukast Sodium 10mg Tablets Take One Tablet By Mouth AT Bedtime 90tabs Iam Wills D.O. , FAAFP 02/21/2020 Zyrtec Allergy 10mg Capsules 1 by mouth every day 30caps Iam Wills D.O., FAAFP Bupropion Hydrochloride ER (SR) 150mg Tablets ER 12HR Take One Tablet By Mouth Twice A Day 180tabs F33.1 Iam Wills D.O., FAAFP 10/13/2018 Azelastine HCL (Nasal) 137mcg/Lynndyl Solution Lynndyl Two Sprays In Each Nostril Two Times A Day 30units Iam Wills D.O., FAAFP 09/29/2018 Escitalopram Oxalate 20mg Tablets Take One Tablet By Mouth Every Day 90tabs Iam Wills D.O., FAAFP 07/23/[address] Take One Capsule By Mouth Every Day Maximum Daily Dose = 1 Capsule 90caps Charlotte Lamb.Kye., FAAFP 08/31/2012 Epipen 2-Bird 0.3mg/0 .3ML Solution Auto-Inject sig as directed 2units Fadi Nickerson M.D. 0 08/31/2012 Vesicare 5mg Tablets 1 by mouth every day 90tabs Iam Wills D.O., FAAFP Emgality 120mg/ml Soln Prefill Syr vania inject monthly [place] Tizanidine HCL 2mg Capsules one by mouth up to three times a day as needed for back spasms Unknown Zonisamide 50mg Capsules take one capsule by mouth at bedtime 90caps Iam Wills D.O., [facility] History Medications Contrave 8-90mg Tablets ER 12HR 1 by mouth po qd am x 1 week, then bid x 1 week, then two po am and 1 po pm x 1 week and then 2 po bid. 120tabs Iam Wills D.O., [facility] - 05/29/2020 Cefdinir 300mg Capsules one cap po bid x 10 days 20caps Iam Wills D.O., [facility] 04/2020 - 03/11/2020 Tessalon Perles 100mg Capsules one cap po tid prn cough 45caps Iam Wills D.O., [facility] 04/2020 - 03/15/2020 Medications Administered in Office Medication SIG Qnty Indications Ordering Provider Date Injection (SC)/(Im) Injection Pia Anne D., HOME CARE GIVER-C 03/21/2015 Immunizations CPT Code Status Date Vaccine Reaction Lot # 30039 Given 03/18/2020 Influenza Virus Vaccine, Quadrivalent, Slit Virus, Im Use 3Y & Up [id number] Given 03/21/2015 Influenza Virus Vac. Split Virus Individuals 3 Years And Above [id number] Refused 05/11/2019 Influenza Virus Vaccine, Quadrivalent, Slit Virus, Im Use 3Y & Up RECEIVED AT WORK 03/2019 Vital Signs Date Vital Result Comment 05/29/2020 2:32pm BP Systolic 126 mmHg BP Diastolic 62 mmHg Body Temperature 97.5 F Heart Rate 95 /min Respiratory Rate 16 /min Height 62 inches 5'2" Weight 196.00 lb Kyle Body Weight 110 lb BMI (Body Mass Index) 35.8 kg/m2 O2 % BldC Oximetry 98 % 03/18/2020 10:57am BP Systolic 112 mmHg BP Diastolic 72 mmHg Body Temperature 97.5 F Heart Rate 91 /min Respiratory Rate 16 /min Height 62 inches 5'2" Weight 193.00 lb Kyle Body Weight 110 lb BMI (Body Mass Index) 35.3 kg/m2 O2 % BldC Oximetry 96 % Results Test Acquired Date Facility Test Result H/L Range Note CBC With Differential 05/03/2020 [facility]) [phone] White Blood Count 12.5 10 High 4.0-10.0 [...] 36.0-66.0 Lymph % 25.4 % Normal 24.0-44.0 Humphreys % 6.4 % High 0.0-5.0 Eos % 6.2 % High 0.0-3.0 Baso % 0.6 % Normal 0.0-1.0 Immature Granulocyte % 0.4 % Normal 0-3.0 Nucleated Red Blood Cell % 0.0 % Normal 0-0 Neutrophils # 7.7 10 Normal 1.5-8.5 Lymph # 3.2 10 Normal 1.5-5.0 Humphreys # 0.8 10 Normal 0.0-0.8 Eos # 0.8 10 High 0.0-0.5 Baso # 0.1 10 Normal 0.0-0.2 Prothrombin Time/Inr 05/03/2020 [facility]) [phone] Prothrombin Time 12.9 seconds Normal 12.5-14.3 Inr 0.95 Normal 1 Laboratory test finding 05/03/2020 [facility] (Interface) [phone] Lactic Acid Sepsis Protocol 1.6 mmol/L Normal 0.4- 2.0 2 Cardiac Marker Panel 05/03/2020 [facility]) [phone] CPK Creatine Phosphokinase 90 U/L Normal 26-19 2 CK-MB Value Mass 1.1 NG/ML Normal <3.6 MB/CK Relative Index 1.22 Normal < Or =4 3 Troponin I < 0.02 NG/ML Normal < 0.10 4 Liver Profile 05/03/2020 [facility]) [phone] Ast/Sgot 24 U/L Normal 7-37 Alt/SGPT 56 U/L Normal 12-78 Alkaline Phosphatase 101 U/L Normal 45-117 Bilirubin,Total 0.3 mg/dL Normal 0.2-1.0 Bilirubin,Direct 0.1 mg/dL Normal 0.0-0.2 Total Protein 7.5 GM/DL Normal 6.4-8.2 Albumin 3.8 GM/DL Normal 3.2-5.2 Albumin/Globulin Ratio 1.0 Low 1.2-2.2 Basic Metabolic Profile 05/03/2020 [facility] (Interface) [phone] Glucose, Fasting 103 mg/dL High 70-100 Blood [...] mg/dL Normal 8.5-10.1 Laboratory test finding 05/03/2020 [facility] (Interface) [phone] NT-Pro BNP 42 pg/mL Normal <125 6 Lipase 99 U/L Normal 73-393 7 Thyroid Stimulating Hormone 3.160 uIU/ML Normal 0.358-3.740 8 Free T4 0.81 ng/dL Normal 0.76-1.46 9 HCG Serum Qualitative NEGATIVE Normal Negative 10 Blood Culture 05/03/2020 [facility]) [phone] Blood Culture No growth after <SEE NOTE> 11 Respiratory Panel 05/03/2020 [facility]) [phone] Respiratory Panel This respiratory <SEE NOTE> 12 [...] eGFR 102 # Calc 18 eGFR Non-Afr. Moroccan 88 # Calc 19 CBC With Differential/Platelet [...] x10E3/uL 0.0-0.1 NRBC TNP Hematology Comments: TNP CBC 12/07/2019 [facility]/Inhouse WBC 11.4 10E3/uL High 4.1 - 10.9 20 RBC 4.27 10E6/uL 4.20 - 6.30 HGB 13.8 g/dL 12.0 - 18.0 HCT 39.3 % 37.0 - 51.0 MCV 92.0 fL 80.0 - 97.0 MCH 32.3 pg High 26.0 - 32.0 MCHC 35.1 g/dL 31.0 - 36.0 PLT 492 10E3/uL High 140 - 440 RDW-CV 13.0 % 11.5 - 14.5 Lym% 22.6 % 10.0 - 58.5 Neut% 67.9 % 37.0 - 92.0 MXD% 9.5 % 0.1 - 24.0 Lym# 2.6 10E3/uL 0.6 - 4.1 Neut# 7.7 % 2.0 - 7.8 MXD# 1.1 10E3/uL 0.0 - 1.8 MPV 9.4 fL 9.0 - 13.0 CMP 12/07/2019 [facility]/Inhouse Glu 97 mg/dL 70 - 110 BUN 10 mg/dL 8 - 23 Creat 0.9 mg/dL 0.5 - 1.0 BUN/Creatinine Ratio 11.0 CALC Na 134 mmol/L Low 136 - 145 K 4.4 mmol/L 3.5 - 5.1 CL 101.1 mmol/L 98.0 - 107.0 Co2 21.0 mmol/L Low 22.0 - 29.0 CA 9.3 mg/dL 8.6 - 10.2 TP 6.6 g/dL 6.6 - 8.7 Alb 4.2 g/dL 3.4 - 4.8 A/G Ratio 1.8 CALC Globulin 2.4 CALC Alp 82.9 U/L 35 - 129 Alt (SGPT) 24 U/L 0 - 41 Ast (Sgot) 17 U/L 0 - 40 Tbili 0.29 mg/dL 0.0 - 1.2 Osmolality-Calculated 267.9 CALC Anion Gap 17 mmol/L eGFR 88 # Calc 21 eGFR Non-Afr. Moroccan 76 # Calc 22 Lipid Panel 12/07/2019 [facility]Inhouse Chol 160 mg/dL 0 - 200 Trig 232 mg/dL High 40 - 200 HDL 38 mg/dL Low 45 - 65 LDL_C 76 Calc 75 - 129 Cho/HDL Ratio 4.2 CALC Laboratory test finding 12/07/2019 [facility]Inhouse TSH 1.068 ulU/mL 0.60 - 4.8 1 THERAPUTIC HUMAN INR VALUES INDICATIONS NORMAL [...] 4 Troponin I Reference Interva l for [employer] LOCI: 99th Percentile= 0.00-0.045 ng/ml Risk Stratification: [...] Little GFR Left ESRD GFR <15 on EDUCATIONAL INTERPRETER 2244] @---END MOBILAB COMMEN T--- 2244] @---END MOBILAB COMMEN T--- 2244] @---END MOBILAB StrobeEN T--- 9 2244] @---END MOBILAB Cloud[employer]ner T--- 2244] @---END MOBILAB [employer] T--- 11 No growth after 72 hours [...] >32 mL/min Normal 18 CKD-EPI 19 CKD-EPI 20 NORMAL RANGES Age WBC RBC HGB HCT MCV PLT Adult M 4.1-10.9 4.20-6.30 12.0-18.0 37.0-51.0 80-97 140-440 Adult F 4.1-10.9 4.04-5.48 12.0-18.0 37.0-51.0 80-97 140-440 0 -1 Yr 5.0-20.0 3.9-5.9 15-18 MV: 44 MV: 91 MV: 277 2-9 Yr. 6.0-17.0 3.8-5.4 11-13 MV: 37 MV: 78 MV: 300 10 Yrs. 5.0-13.0 3.8-5.4 12-15 MV: 39 MV: 80 MV: 250 NOTE: * FOR ADULT BLACK MALES AND FEMALES, NORMAL WBC IS 2.9-7.7 K/ML * FOR ADULT BLACK MALES AND FEMALES, NORMAL RBC,HGB, AND HCT IS 5% LESS SOURCE FOR DATA: [employer] 1800 OPERATION MANUAL( AUTOMATED BLOOD COUNTS AND DIFF.) APPENDIX B-3 CHRONIC KIDNEY DISEASE STAGING PER NKF: MALE GFR INTERPRETATION: 20-49 YRS: [...] Normal 80 and above >32 mL/min Normal 21 CKD-EPI 22 CKD-EPI Procedures Description No Information Available Medical Devices Description No Information Available Encounters Type Date Location Provider Dx Diagnosis Office Visit 05/29/2020 2:20p [place] [facility] Bj Johnson, RP A R06.02 Shortness of breath Office Visit 03/18/2020 10:40a [place] [facility] Bj Johnson, RP A R25.1 Tremor, unspecified N39.46 Mixed incontinence M54.5 Low back pain M13.0 Polyarthritis, unspecified R73.01 Impaired fasting glucose F17.210 Nicotine dependence, cigaret bud, uncomplicated 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 F33.1 Major depressive disorder, r ecurrent, moderate E66.09 Other obesity due to excess calories G47.9 Sleep disorder, unspecified Z23 Encounter for immunization R53.83 Other fatigue Office Visit 03/01/2020 2:20p [place] [facility] Don Wilkinson PA J01.00 Acute maxillary sinusitis, unspecified H92.02 Otalgia, left ear Office Visit 12/07/2019 10:20a [place] [facility] Bj Johnson, RP A R25.1 Tremor, unspecified N39.46 Mixed incontinence M54.5 Low back pain M13.0 Polyarthritis, unspecified R73.01 Impaired fasting glucose F17.210 Nicotine dependence, cigaret bud, uncomplicated G43.009 Migraine w/o aura, not intra ctable, w/o status migrainosus F33.1 Major depressive disorder, r ecurrent, moderate K92.1 Melena 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 Assessments Date Code Description Provider 05/29/2020 R06.02 Shortness of breath Jonas Johnson, GRAY 04/26/2020 R07.9 Chest pain Dm Wilkinson PA 04/26/2020 R06.02 Dyspnea Dm Wilkinson PA 03/18/2020 R25.1 Tremor, unspecified AlexJonas lee, RPA 03/18/2020 N39.46 Mixed incontinence Vikas Johnson, RPA 03/18/2020 M54.5 Low back pain Bj Johnson, RPA 03/18/2020 M13.0 Polyarthritis, unspecified Michaela Bj mccormick, RPA 03/18/2020 R73.01 Impaired fasting glucose Bj [...] PA 03/01/2020 H92.02 Otalgia Dm Wilkinson PA 12/07/2019 R25.1 Tremor, unspecified Jonas Johnson, RPA 12/07/2019 N39.46 Mixed incontinence Vikas Johnson, RPA 12/07/2019 M54.5 Low back pain Bj Johnson, RPA 12/07/2019 M13.0 Polyarthritis, unspecified Freddynma Bj mccormick, RPA 12/07/2019 R73.01 Impaired fasting glucose Bj Johnson, RPA 12/07/2019 F17.210 Nicotine dependence, cigarettes, uncomplicated Bj Johnson, RPA 12/07/2019 G43.009 Migraine without aura, not intra ctable, without status migra Bj Johnson, RPA 12/07/2019 F33.1 Major depressive disorder, recur rent, moderate Bj Johnson, RPA 12/07/2019 K92.1 Bj Cobb, RPA 12/07/2019 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 Bloody stool and something prolapsing. Sent 01/24/2020 [address] [facility] [address] [place], [place] [address] [phone]
--- OUTSIDE RECORDS SUMMARY | 2020-07-05 09:33 | CCD | Continuity of Care Document ---
Author Author Dolores JOHNSON [facility] Organization Unknown Address [address] [place] [address] Phone [phone] Care Team Providers Care Light Industrial Name Role Phone Abe Cortez M.D AUTM [phone] Problems Active Problems Provider Date Peptic reflux [...] liver Bj Johnson RPA Onset: 06/12/2020 Note: [facility] ER 05/04/20 Social History Type [...] 1 puff qd 60units Iam Wills D.O., [facility] 06/20/2020 Montelukast Sodium 10mg Tablets Take One Tablet By Mouth AT Bedtime 90tabs Iam Wills D.O. , [facility] 02/21/2020 Bupropion Hydrochloride ER (SR) 150mg Tablets ER 12HR Take One Tablet By Mouth Twice A Day 180tabs F33.1 Iam Wills D.O., [facility] 10/13/2018 Escitalopram Oxalate 20mg Tablets Take One [...] x 10 days 20caps Iam Wills D.O., [facility] 04/2020 - 03/11/2020 Tessalon Perles 100mg Capsules one cap po tid prn cough 45caps Iam Wills D.O., [facility] 04/2020 - 03/15/2020 Medications Administered in Office Medication SIG Qnty Indications Ordering Provider Date Injection (SC)/(Im) Injection Pia Anne D., DANITA-Hung 03/21/2015 Immunizations CPT Code Status Date Vaccine Reaction Lot # [id number] Given 03/18/2020 Influenza Virus Vaccine, Quadrivalent, Slit Virus, Im Use 3Y & Up [id number] Given 03/21/2015 Influenza Virus Vac. Split Virus Individuals 3 Years And Above [id number] Refused 05/11/2019 Influenza Virus Vaccine, Quadrivalent, Slit Virus, Im Use 3Y & Up RECEIVED AT WORK 03/2019 Vital Signs Date Vital Result Comment 06/27/2020 11:53am BP Systolic 136 mmHg BP Diastolic 74 mmHg Body Temperature 97.8 F Heart Rate 99 /min Respiratory Rate 16 /min Height 62 inches 5'2" 06/20/2020 11:40am BP Systolic 104 mmHg BP Diastolic 62 mmHg Body Temperature 97.2 F Heart Rate 95 /min Respiratory Rate 16 /min Height 62 inches 5'2" Weight 196.00 lb [place] Body Weight 110 lb BMI (Body Mass Index) 35.8 kg/m2 O2 % BldC Oximetry 95 % Results Test Acquired Date Facility Test Result H/L Range Note CBC With Differential 05/03/[address] [facility]) [phone] White Blood Count 12.5 10 High 4.0-10.0 [...] 36.0-66.0 Lymph % 25.4 % Normal 24.0-44.0 [place] % 6.4 % High 0.0-5.0 Eos % 6.2 % High 0.0-3.0 Baso % 0.6 % Normal 0.0-1.0 Immature Granulocyte % 0.4 % Normal 0-3.0 Nucleated Red Blood Cell % 0.0 % Normal 0-0 Neutrophils # 7.7 10 Normal 1.5-8.5 Lymph # 3.2 10 Normal 1.5-5.0 [place] # 0.8 10 Normal 0.0-0.8 Eos # 0.8 10 High 0.0-0.5 Baso # 0.1 10 Normal 0.0-0.2 Prothrombin Time/Inr 05/03/2020 [facility]) [phone] Prothrombin Time 12.9 seconds Normal 12.5-14.3 Inr 0.95 Normal 1 Laboratory test finding 05/03/2020 [facility] ([facility]) [phone] Lactic Acid Sepsis Protocol 1.6 mmol/L Normal 0.4- 2.0 2 Cardiac Marker Panel 05/03/2020 [facility]) [phone] CPK Creatine Phosphokinase 90 U/L Normal 26-19 2 CK-MB Value Mass 1.1 NG/ML Normal <3.6 MB/CK Relative Index 1.22 Normal < Or =4 3 Troponin I < 0.02 NG/ML Normal < 0.10 4 Liver Profile 05/03/2020 [facility]) [phone] Ast/Sgot 24 U/L Normal 7-37 Alt/SGPT 56 U/L Normal 12-78 Alkaline Phosphatase 101 U/L Normal 45-117 Bilirubin,Total 0.3 mg/dL Normal 0.2-1.0 Bilirubin,Direct 0.1 mg/dL Normal 0.0-0.2 Total Protein 7.5 GM/DL Normal 6.4-8.2 Albumin 3.8 GM/DL Normal 3.2-5.2 Albumin/Globulin Ratio 1.0 Low 1.2-2.2 Basic Metabolic Profile 05/03/2020 [facility] (Interface) [phone] Glucose, Fasting 103 mg/dL High 70-100 Blood [...] mg/dL Normal 8.5-10.1 Laboratory test finding 05/03/2020 [facility] (Interface) [phone] NT-Pro BNP 42 pg/mL Normal <125 6 Lipase 99 U/L Normal 73-393 7 Thyroid Stimulating Hormone 3.160 uIU/ML Normal 0.358-3.740 8 Free T4 0.81 ng/dL Normal 0.76-1.46 9 HCG Serum Qualitative NEGATIVE Normal Negative 10 Blood Culture 05/03/2020 [facility]) [phone] Blood Culture No growth after <SEE NOTE> 11 Respiratory Panel 05/03/2020 [facility]) [phone] Respiratory Panel This respiratory <SEE NOTE> 12 [...] eGFR 102 # Calc 18 eGFR Non-Afr. Mozambican 88 # Calc 19 CBC With Differential/Platelet [...] 4 Troponin I Reference Interva l for [employer] LOCI: 99th Percentile= 0.00-0.045 ng/ml Risk Stratification: [...] Little GFR Left ESRD GFR <15 on BUILDINGS AND GROUNDS SUPERVISOR 2244] @---END MOBILAB COMMEN T--- 2244] @---END [...] CKD-EPI Procedures Date Code Description Status 06/27/2020 98079 Remove Skin Tags Up To 15 Comple gabriela Medical Devices Description No Information Available Encounters Type Date Location Provider Dx Diagnosis Office Visit 06/20/2020 11:00a [place] [facility] Bj Johnson, RP A R25.1 Tremor, unspecified N39.46 Mixed incontinence M54.5 Low back pain M13.0 Polyarthritis, unspecified R73.01 Impaired fasting glucose F17.210 Nicotine dependence, cigaret bud, uncomplicated 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 F33.1 Major depressive disorder, r ecurrent, moderate 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, predom inattentive type Office Visit 05/29/2020 2:20p [place] [facility] Bj Johnson, RP A R06.02 Shortness of breath Office Visit 03/18/2020 10:40a [place] [facility] Bj Johnson, RP A R25.1 Tremor, unspecified N39.46 Mixed incontinence M54.5 Low back pain M13.0 Polyarthritis, unspecified R73.01 Impaired fasting glucose F17.210 Nicotine dependence, cigaret bud, uncomplicated 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 F33.1 Major depressive disorder, r ecurrent, moderate E66.09 Other obesity due to excess calories G47.9 Sleep disorder, unspecified Z23 Encounter for immunization R53.83 Other fatigue Office Visit 03/01/2020 2:20p [place] [facility] Don Wilkinson PA J01.00 Acute maxillary [...] Johnson, RPA 04/26/2020 R07.9 Chest pain Dm Wilkinson, PA 04/26/2020 R06.02 Dyspnea Dm Wilkinson PA [...] 3:00 pm - Bj Johnson, GRAY at [place] [facility] Functional Status Description No Information Available Mental Status Description No Information Available Referrals Refer to Reason for Referral Status Appt Date [facility] Pulmonary Sleep disorder-awakens tired-snores Sent 07/04/2019 [address] [place] [address] [phone]
--- OUTSIDE RECORDS SUMMARY | 2020-07-05 09:33 | CCD | Continuity of Care Document ---
Author Author Dolores JOHNSON [facility] Organization Unknown Address [address] [place] [phone] Phone [phone] Care Team Providers Care Chief Concierge Name Role Phone Abe Cortez M.D AUTM [phone] Problems Active Problems Provider Date Peptic reflux [...] Wills D.O., FAAFP 10/13/2018 Azelastine HCL (Nasal) 137mcg/Schofield Solution Schofield Two Sprays In Each Nostril Two Times [...] mouth at bedtime 90caps Iam Wills D.O., [facility] History Medications Contrave 8-90mg Tablets ER 12HR 1 by mouth po qd am x 1 week, then bid x 1 week, then two po am and 1 po pm x 1 week and then 2 po bid. 120tabs Iam Wills D.O., [facility] - 05/29/2020 Cefdinir 300mg Capsules one cap po bid x 10 days 20caps Iam Wills D.O., [facility] 04/2020 - 03/11/2020 Tessalon Perles 100mg Capsules one cap po tid prn cough 45caps Iam Wills D.O., [facility] 04/2020 - 03/15/2020 Medications Administered in Office Medication SIG Qnty Indications Ordering Provider Date Injection (SC)/(Im) Injection Pia Anne D., JUVENILE COUNSELOR-C 03/21/2015 Immunizations CPT Code Status Date Vaccine Reaction Lot # [id number] Given 03/18/2020 Influenza Virus Vaccine, Quadrivalent, Slit Virus, Im Use 3Y & Up [id number] Given 03/21/2015 Influenza Virus Vac. Split Virus Individuals 3 Years And Above [id number] Refused 05/11/2019 Influenza Virus Vaccine, Quadrivalent, Slit Virus, Im Use 3Y & Up RECEIVED AT WORK 03/2019 Vital Signs Date Vital Result Comment 05/29/2020 2:32pm BP Systolic 126 mmHg BP Diastolic 62 mmHg Body Temperature 97.5 F Heart Rate 95 /min Respiratory Rate 16 /min Height 62 inches 5'2" Weight 196.00 lb [place] Body Weight 110 lb BMI (Body Mass Index) 35.8 kg/m2 O2 % BldC Oximetry 98 % 03/18/2020 10:57am BP Systolic 112 mmHg BP Diastolic 72 mmHg Body Temperature 97.5 F Heart Rate 91 /min Respiratory Rate 16 /min Height 62 inches 5'2" Weight 193.00 lb [place] Body Weight 110 lb BMI (Body Mass Index) 35.3 kg/m2 O2 % BldC Oximetry 96 % Results Test Acquired Date Facility Test Result H/L Range Note CBC With Differential 05/03/2020 [facility]) [phone] White Blood Count 12.5 10 High 4.0-10.0 [...] 36.0-66.0 Lymph % 25.4 % Normal 24.0-44.0 Emanuel % 6.4 % High 0.0-5.0 Eos % 6.2 % High 0.0-3.0 Baso % 0.6 % Normal 0.0-1.0 Immature Granulocyte % 0.4 % Normal 0-3.0 Nucleated Red Blood Cell % 0.0 % Normal 0-0 Neutrophils # 7.7 10 Normal 1.5-8.5 Lymph # 3.2 10 Normal 1.5-5.0 Emanuel # 0.8 10 Normal 0.0-0.8 Eos # 0.8 10 High 0.0-0.5 Baso # 0.1 10 Normal 0.0-0.2 Prothrombin Time/Inr 05/03/2020 [facility]) [phone] Prothrombin Time 12.9 seconds Normal 12.5-14.3 Inr 0.95 Normal 1 Laboratory test finding 05/03/2020 [facility] (Interface) [phone] Lactic Acid Sepsis Protocol 1.6 mmol/L Normal 0.4- 2.0 2 Cardiac Marker Panel 05/03/2020 [facility]) [phone] CPK Creatine Phosphokinase 90 U/L Normal 26-19 2 CK-MB Value Mass 1.1 NG/ML Normal <3.6 MB/CK Relative Index 1.22 Normal < Or =4 3 Troponin I < 0.02 NG/ML Normal < 0.10 4 Liver Profile 05/03/2020 [facility]) [phone] Ast/Sgot 24 U/L Normal 7-37 Alt/SGPT 56 U/L Normal 12-78 Alkaline Phosphatase 101 U/L Normal 45-117 Bilirubin,Total 0.3 mg/dL Normal 0.2-1.0 Bilirubin,Direct 0.1 mg/dL Normal 0.0-0.2 Total Protein 7.5 GM/DL Normal 6.4-8.2 Albumin 3.8 GM/DL Normal 3.2-5.2 Albumin/Globulin Ratio 1.0 Low 1.2-2.2 Basic Metabolic Profile 05/03/2020 [facility] (Interface) [phone] Glucose, Fasting 103 mg/dL High 70-100 Blood [...] mg/dL Normal 8.5-10.1 Laboratory test finding 05/03/2020 [facility] (Interface) [phone] NT-Pro BNP 42 pg/mL Normal <125 6 Lipase 99 U/L Normal 73-393 7 Thyroid Stimulating Hormone 3.160 uIU/ML Normal 0.358-3.740 8 Free T4 0.81 ng/dL Normal 0.76-1.46 9 HCG Serum Qualitative NEGATIVE Normal Negative 10 Blood Culture 05/03/2020 [facility]) [phone] Blood Culture No growth after <SEE NOTE> 11 Respiratory Panel 05/03/2020 [facility]) [phone] Respiratory Panel This respiratory <SEE NOTE> 12 [...] eGFR 102 # Calc 18 eGFR Non-Afr. Central African 88 # Calc 19 CBC With Differential/Platelet [...] eGFR 88 # Calc 21 eGFR Non-Afr. Central African 76 # Calc 22 Lipid Panel 12/07/2019 [...] 4 Troponin I Reference Interva l for [employer] LOCI: 99th Percentile= 0.00-0.045 ng/ml Risk Stratification: [...] Little GFR Left ESRD GFR <15 on MANAGER LIBRARY 2244] @---END MOBILAB COMMEN T--- 2244] @---END MOBILAB COMMEN T--- 2244] @---END MOBILAB GetBackEN T--- 9 2244] @---END MOBILAB Telcare T--- 2244] @---END MOBILAB Telcare T--- 11 No growth after 72 hours [...] HCT IS 5% LESS SOURCE FOR DATA: [employer] 1800 OPERATION MANUAL( AUTOMATED BLOOD COUNTS AND [...] Provider Dx Diagnosis Office Visit 05/29/2020 2:20p [place] [facility] Bj Johnson, RP A R06.02 Shortness of breath Office Visit 03/18/2020 10:40a [place] [facility] Bj Johnson, RP A R25.1 Tremor, unspecified N39.46 Mixed incontinence M54.5 Low back pain M13.0 Polyarthritis, unspecified R73.01 Impaired fasting glucose F17.210 Nicotine dependence, cigaret bud, uncomplicated 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 F33.1 Major depressive disorder, r ecurrent, moderate E66.09 Other obesity due to excess calories G47.9 Sleep disorder, unspecified Z23 Encounter for immunization R53.83 Other fatigue Office Visit 03/01/2020 2:20p [place] [facility] Don Wilkinson PA J01.00 Acute maxillary sinusitis, unspecified H92.02 Otalgia, left ear Office Visit 12/07/2019 10:20a [place] [facility] Bj Johnson, RP A R25.1 Tremor, [...] 11:00 am - Bj Johnson, GRAY at [place] [facility] Functional Status Description No Information Available Mental Status Description No Information Available Referrals Refer to Reason for Referral Status Appt Date [facility] Pulmonary Sleep disorder-awakens tired-snores Sent 07/04/2019 [address] [place] [address] [phone] Rajeev Engel M.D. Bloody stool and something prolapsing. Sent 01/24/2020 [address]26 [facility] [address] [place], [place] [address] [phone]
--- OUTSIDE RECORDS SUMMARY | 2020-07-05 09:33 | CCD | Continuity of Care Document ---
Author Author Andra/Dolores ROWLEY Organization Unknown Address [address] [place] [address] Phone [phone] Care Team Providers Care Cafeteria Manager Name Role Phone Bj Johnson AUTM [phone] Problems Active Problems Provider Date Occipital headache [...] lb BMI (Body Mass Index) 31.9 kg/m2 [place] Body Weight 115 lb 08/17/2019 11:16am BP Systolic 130 mmHg BP Diastolic 72 mmHg Heart Rate 76 /min Respiratory Rate 12 /min Height 63 inches 5'3" Weight 180.00 lb BMI (Body Mass Index) 31.9 kg/m2 [place] Body Weight 115 lb Results Description No Information Available Procedures Description No Information Available Medical Devices Description No Information Available Encounters Type Date Location Provider Dx Diagnosis Office Visit 04/01/2020 12:00p [facility] office - [place] Nadya guzmán M.D. G43.119 Migraine with aura, intractable, without status migrainosus Assessments Date Code Description Provider 04/01/2020 G43.119 Migraine with aura, intractable, without status migrainosus Nadya Molina M.D. Plan of Treatment Future Appointment(s):* 08/19/2020 11:15 am - Nadya Molina M.D. at [facility] Functional Status Description No Information Available Mental Status Description No Information Available Referrals Refer to Dr Reason for Referral Status Appt Date Sohan Montenegro, BLURRED [place] Created 0 Opthalmology [address] [place] [address] [phone]
--- OUTSIDE RECORDS SUMMARY | 2020-07-05 09:34 | CCD | Continuity of Care Document ---
Author Author Dolores JOHNSON [facility] Organization Unknown Address [address] [place] [address] Phone [phone] Care Team Providers Care Geologist Petroleum Name Role Phone Abe Cortez M.D AUTM [phone] Problems Active Problems Provider Date Peptic reflux [...] SIG Qnty Indications Ordering Provide r Date Contrave 8-90mg Tablets ER 12HR 1 by mouth po qd am x 1 week, then bid x 1 week, then two po am and 1 po pm x 1 week and then 2 po bid. 120tabs Iam Wills D.O., FAAFP Montelukast Sodium 10mg Tablets Take One Tablet By Mouth AT Bedtime 90tabs Iam Wills D.O. , FAAFP 02/21/2020 Zyrtec Allergy 10mg Capsules 1 by mouth every day 30caps Iam Wills D.O., FAAFP Bupropion Hydrochloride ER (SR) 150mg Tablets ER 12HR Take One Tablet By Mouth Twice A Day 180tabs F33.1 Iam Wills D.O., FAAFP 10/13/2018 Azelastine HCL (Nasal) 137mcg/[place] Solution [place] Two Sprays In Each Nostril Two Times A Day 30units Iam Wills D.O., FAAFP 09/29/2018 Escitalopram Oxalate 20mg Tablets Take One Tablet By Mouth Every Day 90tabs Charlotte Lamb.O., FAAFP 07/23/[address] Take [...] 90caps Iam Wills D.O., FAAFP History Medications Cefdinir 300mg Capsules one cap po bid x 10 days 20caps Iam Wills D.O., FAAFP 04/2020 - 03/11/2020 Tessalon Perles 100mg Capsules one cap po tid prn cough 45caps Iam Wills D.O., FAAFP 04/2020 - 03/15/2020 Medications Administered in Office Medication SIG Qnty Indications Ordering Provider Date Injection (SC)/(Im) Injection Pia Anne D., INSPECTOR WELDED PARTS-C 03/21/2015 Immunizations CPT Code Status Date Vaccine Reaction Lot # [id number] Given 03/18/2020 Influenza Virus Vaccine, Quadrivalent, Slit Virus, Im Use 3Y & Up [id number] Given 03/21/2015 Influenza Virus Vac. Split Virus Individuals 3 Years And Above [id number] Refused 05/11/2019 Influenza Virus Vaccine, Quadrivalent, Slit Virus, Im Use 3Y & Up RECEIVED AT WORK 03/2019 Vital Signs Date Vital Result Comment 03/18/2020 10:57am BP Systolic 112 mmHg BP Diastolic 72 mmHg Body Temperature 97.5 F Heart Rate 91 /min Respiratory Rate 16 /min Height 62 inches 5'2" Weight 193.00 lb [place] Body Weight 110 lb BMI (Body Mass Index) 35.3 kg/m2 O2 % BldC Oximetry 96 % 03/01/2020 2:43pm BP Systolic 124 mmHg BP Diastolic 80 mmHg Body Temperature 98.0 F Heart Rate 84 /min Respiratory Rate 16 /min Height 62 inches 5'2" Weight 189.00 lb [place] Body Weight 110 lb BMI (Body Mass Index) 34.6 kg/m2 O2 % BldC Oximetry 97 % Results Test Acquired Date Facility Test Result H/L Range Note CBC With Differential 05/03/2020 [facility] ([facility]) [phone] White Blood Count 12.5 10 High 4.0-10.0 [...] 36.0-66.0 Lymph % 25.4 % Normal 24.0-44.0 [place] % 6.4 % High 0.0-5.0 Eos % 6.2 % High 0.0-3.0 Baso % 0.6 % Normal 0.0-1.0 Immature Granulocyte % 0.4 % Normal 0-3.0 Nucleated Red Blood Cell % 0.0 % Normal 0-0 Neutrophils # 7.7 10 Normal 1.5-8.5 Lymph # 3.2 10 Normal 1.5-5.0 [place] # 0.8 10 Normal 0.0-0.8 Eos # 0.8 10 High 0.0-0.5 Baso # 0.1 10 Normal 0.0-0.2 Prothrombin Time/Inr 05/03/2020 [facility] ( [facility]) [phone] Prothrombin Time 12.9 seconds Normal 12.5-14.3 Inr 0.95 Normal 1 Laboratory test finding 05/03/2020 [facility] (Interface) [phone] Lactic Acid Sepsis Protocol 1.6 mmol/L Normal 0.4- 2.0 2 Cardiac Marker Panel 05/03/2020 [facility]) [phone] CPK Creatine Phosphokinase 90 U/L Normal 26-19 2 CK-MB Value Mass 1.1 NG/ML Normal <3.6 MB/CK Relative Index 1.22 Normal < Or =4 3 Troponin I < 0.02 NG/ML Normal < 0.10 4 Liver Profile 05/03/2020 [facility] ([facility]) [phone] Ast/Sgot 24 U/L Normal 7-37 Alt/SGPT 56 U/L Normal 12-78 Alkaline Phosphatase 101 U/L Normal 45-117 Bilirubin,Total 0.3 mg/dL Normal 0.2-1.0 Bilirubin,Direct 0.1 mg/dL Normal 0.0-0.2 Total Protein 7.5 GM/DL Normal 6.4-8.2 Albumin 3.8 GM/DL Normal 3.2-5.2 Albumin/Globulin Ratio 1.0 Low 1.2-2.2 Basic Metabolic Profile 05/03/2020 [facility] (Interface) [phone] Glucose, Fasting 103 mg/dL High 70-100 Blood [...] test finding 05/03/2020 [facility] (Interface) [phone] NT-Pro BNP 42 pg/mL Normal <125 6 Lipase 99 U/L Normal 73-393 7 Thyroid Stimulating Hormone 3.160 uIU/ML Normal 0.358-3.740 8 Free T4 0.81 ng/dL Normal 0.76-1.46 9 HCG Serum Qualitative NEGATIVE Normal Negative 10 Blood Culture 05/03/2020 [facility] ([facility]) [phone] Blood Culture No growth after <SEE NOTE> 11 Respiratory Panel 05/03/2020 [facility] ([facility]) [phone] Respiratory Panel This respiratory <SEE NOTE> 12 [...] eGFR 102 # Calc 18 eGFR Non-Afr. [place] 88 # Calc 19 CBC With Differential/Platelet [...] Immature Grans (Abs) 0.0 x10E3/uL 0.0-0.1 NRBC [facility] Hematology Comments: TNP CBC 12/07/2019 FPA/Inhouse WBC [...] eGFR 88 # Calc 21 eGFR Non-Afr. [place] 76 # Calc 22 Lipid Panel 12/07/2019 [...] 4 Troponin I Reference Interva l for Ikonisys LOCI: 99th Percentile= 0.00-0.045 ng/ml Risk Stratification: [...] Little GFR Left ESRD GFR <15 on SILICATOR 2244] @---END MOBILAB COMMEN T--- 2244] @---END [...] HCT IS 5% LESS SOURCE FOR DATA: [employer] - Onvelop 1800 OPERATION MANUAL( AUTOMATED BLOOD COUNTS AND [...] Date Location Provider Dx Diagnosis Office Visit 03/18/2020 10:40a [facility] Bj Johnson, RP A R25.1 Tremor, unspecified N39.46 Mixed incontinence M54.5 Low back pain M13.0 Polyarthritis, unspecified R73.01 Impaired fasting glucose F17.210 Nicotine dependence, cigaret bud, uncomplicated 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 F33.1 Major depressive disorder, r ecurrent, moderate E66.09 Other obesity due to excess calories G47.9 Sleep disorder, unspecified Z23 Encounter for immunization R53.83 Other fatigue Office Visit 03/01/2020 2:20p [facility] Don Wilkinson PA J01.00 Acute maxillary sinusitis, unspecified H92.02 Otalgia, left ear Office Visit 12/07/2019 10:20a [facility] Bj Johnson, RP A R25.1 Tremor, unspecified N39.46 Mixed incontinence M54.5 Low back pain M13.0 Polyarthritis, unspecified R73.01 Impaired fasting glucose F17.210 Nicotine dependence, cigaret bud, uncomplicated G43.009 Migraine w/o aura, not intra ctable, w/o status migrainosus F33.1 Major depressive disorder, r ecurrent, moderate K92.1 Melena 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 Assessments Date Code Description Provider 04/26/2020 R07.9 Chest pain Dm Wilkinson PA [...] Dm Wilkinson PA 12/07/2019 R25.1 Tremor, unspecified AlexJonas lee, RPA 12/07/2019 N39.46 Mixed incontinence Vikas Johnson, [...] rent, moderate Bj Johnson, RPA 12/07/2019 K92.1 Melena Bj Johnson, RPA 12/07/2019 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 Carlos Johnson, RPA 11/24/2019 R25.1 Tremor, unspecified AlexJonas lee, RPA 11/24/2019 N39.46 Mixed incontinence Vikas Johnson, RPA 11/24/2019 M54.5 Low back pain Bj Johnson, RPA 11/24/2019 M13.0 Polyarthritis, unspecified Hinma anny Bj D, RPA 11/24/2019 R73.01 Impaired fasting glucose Bj Johnson, RPA 11/24/2019 F17.210 Nicotine dependence, cigarettes, uncomplicated Bj Johnson, RPA 11/24/2019 G43.009 Migraine without aura, not intra ctable, without status migra Bj Johnson, RPA 11/24/2019 F33.1 Major depressive disorder, recur rent, moderate Bj Johnson, GRAY Plan of Treatment Future Appointment(s):* 05/29/2020 2:20 pm - Bj Johnson, GRAY at [facility] * 06/20/2020 11:00 am - Bj Johnson, GRAY at [facility] Functional Status Description No Information Available Mental Status Description No Information Available Referrals Refer to Reason for Referral Status Appt Date [facility] Pulmonary Sleep disorder-awakens tired-snores Sent [id number] [place] [address] [phone] Rajeev Engel M.D. Bloody stool and something prolapsing. Sent 01/24/2020 826 [facility] [address] [place], [place] [address] [phone]
--- OUTSIDE RECORDS SUMMARY | 2020-07-05 09:34 | CCD | Continuity of Care Document ---
Author Author Dolores JOHNSON [facility] Organization Unknown Address [address] [place] [address] Phone [phone] Care Team Providers Care Child Psychology Teacher Name Role Phone Abe Cortez M.D AUTM [phone] Problems Active Problems Provider Date Peptic reflux [...] Wills D.O., FAAFP 10/13/2018 Azelastine HCL (Nasal) 137mcg/[place] Solution [place] Two Sprays In Each Nostril Two Times [...] .3ML Solution Auto-Inject sig as directed 2units Faid Nickerson M.D. 0 08/31/2012 Vesicare 5mg Tablets [...] Date Injection (SC)/(Im) Injection Pia Anne D., ENGINEERING TECHNICIAN PARKING-C 03/21/2015 Immunizations CPT Code Status Date Vaccine Reaction Lot # 26569 Given 03/18/2020 Influenza Virus Vaccine, Quadrivalent, Slit Virus, Im Use 3Y & Up [id number] Given 03/21/2015 Influenza Virus Vac. Split Virus Individuals 3 Years And Above [id number] Refused 05/11/2019 Influenza Virus Vaccine, Quadrivalent, Slit Virus, Im Use 3Y & Up RECEIVED AT WORK 03/2019 Vital Signs Date Vital Result Comment 03/18/2020 10:57am BP Systolic 112 mmHg BP Diastolic 72 mmHg Body Temperature 97.5 F Heart Rate 91 /min Respiratory Rate 16 /min Height 62 inches 5'2" Weight 193.00 lb [place] Body Weight 110 lb BMI (Body Mass Index) 35.3 kg/m2 O2 % BldC Oximetry 96 % 03/01/2020 2:43pm BP Systolic 124 mmHg BP Diastolic 80 mmHg Body Temperature 98.0 F Heart Rate 84 /min Respiratory Rate 16 /min Height 62 inches 5'2" Weight 189.00 lb [place] Body Weight 110 lb BMI (Body Mass Index) 34.6 kg/m2 O2 % BldC Oximetry 97 % Results Test Acquired Date Facility Test Result H/L Range Note CBC With Differential 05/03/2020 [facility] ([facility]) [phone] White Blood Count 12.5 10 High 4.0-10.0 [...] 36.0-66.0 Lymph % 25.4 % Normal 24.0-44.0 [place] % 6.4 % High 0.0-5.0 Eos % 6.2 % High 0.0-3.0 Baso % 0.6 % Normal 0.0-1.0 Immature Granulocyte % 0.4 % Normal 0-3.0 Nucleated Red Blood Cell % 0.0 % Normal 0-0 Neutrophils # 7.7 10 Normal 1.5-8.5 Lymph # 3.2 10 Normal 1.5-5.0 [place] # 0.8 10 Normal 0.0-0.8 Eos # 0.8 10 High 0.0-0.5 Baso # 0.1 10 Normal 0.0-0.2 Prothrombin Time/Inr 05/03/2020 [facility] ( [facility]) [phone] Prothrombin Time 12.9 seconds Normal 12.5-14.3 Inr 0.95 Normal 1 Laboratory test finding 05/03/2020 [facility] (Interface) [phone] Lactic Acid Sepsis Protocol 1.6 mmol/L Normal 0.4- 2.0 2 Cardiac Marker Panel 05/03/2020 [facility]) [phone] CPK Creatine Phosphokinase 90 U/L Normal 26-19 2 CK-MB Value Mass 1.1 NG/ML Normal <3.6 MB/CK Relative Index 1.22 Normal < Or =4 3 Troponin I < 0.02 NG/ML Normal < 0.10 4 Liver Profile 05/03/2020 [facility] ([facility]) [phone] Ast/Sgot 24 U/L Normal 7-37 Alt/SGPT 56 U/L Normal 12-78 Alkaline Phosphatase 101 U/L Normal 45-117 Bilirubin,Total 0.3 mg/dL Normal 0.2-1.0 Bilirubin,Direct 0.1 mg/dL Normal 0.0-0.2 Total Protein 7.5 GM/DL Normal 6.4-8.2 Albumin 3.8 GM/DL Normal 3.2-5.2 Albumin/Globulin Ratio 1.0 Low 1.2-2.2 Basic Metabolic Profile 05/03/2020 [facility] (Interface) [phone] Glucose, Fasting 103 mg/dL High 70-100 Blood [...] mg/dL Normal 8.5-10.1 Laboratory test finding 05/03/2020 [facility] (Interface) [phone] NT-Pro BNP 42 pg/mL Normal <125 6 Lipase 99 U/L Normal 73-393 7 Thyroid Stimulating Hormone 3.160 uIU/ML Normal 0.358-3.740 8 Free T4 0.81 ng/dL Normal 0.76-1.46 9 HCG Serum Qualitative NEGATIVE Normal Negative 10 Blood Culture 05/03/2020 [facility] ([facility]) [phone] Blood Culture No growth after <SEE NOTE> 11 Respiratory Panel 05/03/2020 [facility] ([facility]) [phone] Respiratory Panel This respiratory <SEE NOTE> 12 [...] eGFR 102 # Calc 18 eGFR Non-Afr. Citizen Of [place] 88 # Calc 19 CBC With Differential/Platelet [...] Immature Grans (Abs) 0.0 x10E3/uL 0.0-0.1 NRBC [facility] Hematology Comments: TNP CBC 12/07/2019 FPA/Inhouse WBC [...] eGFR 88 # Calc 21 eGFR Non-Afr. Citizen Of [place] 76 # Calc 22 Lipid Panel 12/07/2019 [...] 4 Troponin I Reference Interva l for cicayda LOCI: 99th Percentile= 0.00-0.045 ng/ml Risk Stratification: [...] Little GFR Left ESRD GFR <15 on ENVIRONMENTAL HEALTH SAFETY ENGINEER 2244] @---END MOBILAB COMMEN T--- 2244] @---END MOBILAB COMMEN T--- 2244] @---END MOBILAB COMMEN T--- 2244] @---END MOBILAB COMMEN T--- 2244] @---END MOBILAB COMMEN T--- 11 No growth after 24 hours . A ll specimens observed for 5 days. Results final at that time. No Growth after 48 hours. All Specimens observed for 5 days. Results final at that time. 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 F33.1 Major depressive disorder, r ecurrent, moderate E66.09 Other obesity due to excess calories G47.9 Sleep disorder, unspecified Z23 Encounter for immunization R53.83 Other fatigue Office Visit 03/01/2020 2:20p [facility] Don Wilkinson PA J01.00 Acute maxillary sinusitis, unspecified H92.02 Otalgia, left ear Office Visit 12/07/2019 10:20a [facility] Bj Johnson, RP A R25.1 Tremor, [...] Bj Johnson, RPA 12/07/2019 M13.0 Polyarthritis, unspecified Bj Pond, RPA 12/07/2019 R73.01 Impaired fasting glucose Bj Johnson, RPA 12/07/2019 F17.210 Nicotine dependence, cigarettes, uncomplicated Bj Johnson, RPA 12/07/2019 G43.009 Migraine without aura, not intra ctable, without status migra Bj Johnson, RPA 12/07/2019 F33.1 Major depressive disorder, recur rent, moderate Bj Johnson, RPA 12/07/2019 K92.1 [place] Bj Johnson, RPA 12/07/2019 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 Carlos Johnson, RPA 11/24/2019 R25.1 Tremor, unspecified Jonas Johnson, RPA 11/24/2019 N39.46 Mixed incontinence Vikas Johnson, RPA 11/24/2019 M54.5 Low back pain Bj Johnson, RPA 11/24/2019 M13.0 Polyarthritis, unspecified Bj Pond, RPA 11/24/2019 R73.01 Impaired fasting glucose Bj Johnson, RPA 11/24/2019 F17.210 Nicotine dependence, cigarettes, uncomplicated Bj Johnson, GRAY 11/24/2019 G43.009 Migraine without aura, not intra ctable, without status migra Bj Johnson, GRAY 11/24/2019 F33.1 Major depressive disorder, recur rent, moderate Bj Johnson, GRAY Plan of Treatment Future Appointment(s):* 06/20/2020 11:00 am - Bj Johnson RPA at [facility] Functional Status Description No Information Available Mental Status Description No Information Available Referrals Refer to Reason for Referral Status Appt Date [facility] Pulmonary Sleep disorder-awakens tired-snores Sent [address] [place] [address] [phone] Rajeev Engel M.D. Bloody stool and something prolapsing. Sent 01/24/2020 826 [facility] [address] [place], [place] [address] [phone]
--- OUTSIDE RECORDS SUMMARY | 2020-07-05 09:34 | CCD | Continuity of Care Document ---
Author Author Dolores JOHNSON [facility] Organization Unknown Address [address] [place] [address] Phone [phone] Care Team Providers Care Blasting Worker Name Role Phone Abe Cortez M.D AUTM [phone] Problems Active Problems Provider Date Peptic reflux disease Lorena rGoss RPA-C Onset: 02/19 Mixed urinary incontinence Lorena [...] Wills D.O., FAAFP 10/13/2018 Azelastine HCL (Nasal) 137mcg/[place] Solution [place] Two Sprays In Each Nostril Two Times [...] Date Injection (SC)/(Im) Injection Pia Anne D., BUILDING ESTIMATOR-C 03/21/2015 Immunizations CPT Code Status Date Vaccine Reaction Lot # 10943 Given 03/18/2020 Influenza Virus Vaccine, Quadrivalent, Slit Virus, Im Use 3Y & Up [id number] Given 03/21/2015 Influenza Virus Vac. Split Virus Individuals 3 Years And Above [id number] Refused 05/11/2019 Influenza Virus Vaccine, Quadrivalent, Slit Virus, Im Use 3Y & Up RECEIVED AT WORK 03/2019 Vital Signs Date Vital Result Comment 03/18/2020 10:57am BP Systolic 112 mmHg BP Diastolic 72 mmHg Body Temperature 97.5 F Heart Rate 91 /min Respiratory Rate 16 /min Height 62 inches 5'2" Weight 193.00 lb [place] Body Weight 110 lb BMI (Body Mass Index) 35.3 kg/m2 O2 % BldC Oximetry 96 % 03/01/2020 2:43pm BP Systolic 124 mmHg BP Diastolic 80 mmHg Body Temperature 98.0 F Heart Rate 84 /min Respiratory Rate 16 /min Height 62 inches 5'2" Weight 189.00 lb [place] Body Weight 110 lb BMI (Body Mass Index) 34.6 kg/m2 O2 % BldC Oximetry 97 % Results Test Acquired Date Facility Test Result H/L Range Note CBC With Differential 05/03/2020 [facility] ([facility]) [phone] White Blood Count 12.5 10 High 4.0-10.0 [...] 36.0-66.0 Lymph % 25.4 % Normal 24.0-44.0 [place] % 6.4 % High 0.0-5.0 Eos % 6.2 % High 0.0-3.0 Baso % 0.6 % Normal 0.0-1.0 Immature Granulocyte % 0.4 % Normal 0-3.0 Nucleated Red Blood Cell % 0.0 % Normal 0-0 Neutrophils # 7.7 10 Normal 1.5-8.5 Lymph # 3.2 10 Normal 1.5-5.0 [place] # 0.8 10 Normal 0.0-0.8 Eos # 0.8 10 High 0.0-0.5 Baso # 0.1 10 Normal 0.0-0.2 Prothrombin Time/Inr 05/03/2020 [facility] ( [facility]) [phone] Prothrombin Time 12.9 seconds Normal 12.5-14.3 Inr 0.95 Normal 1 Laboratory test finding 05/03/2020 [facility] (Interface) [phone] Lactic Acid Sepsis Protocol 1.6 mmol/L Normal 0.4- 2.0 2 Cardiac Marker Panel 05/03/2020 [facility]) [phone] CPK Creatine Phosphokinase 90 U/L Normal 26-19 2 CK-MB Value Mass 1.1 NG/ML Normal <3.6 MB/CK Relative Index 1.22 Normal < Or =4 3 Troponin I < 0.02 NG/ML Normal < 0.10 4 Liver Profile 05/03/2020 [facility] ([facility]) [phone] Ast/Sgot 24 U/L Normal 7-37 Alt/SGPT 56 U/L Normal 12-78 Alkaline Phosphatase 101 U/L Normal 45-117 Bilirubin,Total 0.3 mg/dL Normal 0.2-1.0 Bilirubin,Direct 0.1 mg/dL Normal 0.0-0.2 Total Protein 7.5 GM/DL Normal 6.4-8.2 Albumin 3.8 GM/DL Normal 3.2-5.2 Albumin/Globulin Ratio 1.0 Low 1.2-2.2 Basic Metabolic Profile 05/03/2020 [facility] (Interface) [phone] Glucose, Fasting 103 mg/dL High 70-100 Blood [...] Normal 8.5-10.1 Laboratory test finding 05/03/2020 [facility] (Interface) [phone] NT-Pro BNP 42 pg/mL Normal <125 6 Lipase 99 U/L Normal 73-393 7 Thyroid Stimulating Hormone 3.160 uIU/ML Normal 0.358-3.740 8 Free T4 0.81 ng/dL Normal 0.76-1.46 9 HCG Serum Qualitative NEGATIVE Normal Negative 10 Blood Culture 05/03/2020 [facility] ([facility]) [phone] Blood Culture No growth after <SEE NOTE> 11 Respiratory Panel 05/03/2020 [facility] ([facility]) [phone] Respiratory Panel This respiratory <SEE NOTE> 12 [...] eGFR 102 # Calc 18 eGFR Non-Afr. [place] 88 # Calc 19 CBC With Differential/Platelet [...] Immature Grans (Abs) 0.0 x10E3/uL 0.0-0.1 NRBC [facility] Hematology Comments: TNP CBC 12/07/2019 FPA/Inhouse [...] eGFR 88 # Calc 21 eGFR Non-Afr. [place] 76 # Calc 22 Lipid Panel 12/07/2019 [...] 4 Troponin I Reference Interva l for AntCor LOCI: 99th Percentile= 0.00-0.045 ng/ml Risk Stratification: [...] Little GFR Left ESRD GFR <15 on COMMUNICATIONS PROFESSOR 2244] @---END MOBILAB COMMEN T--- 2244] @---END [...] HCT IS 5% LESS SOURCE FOR DATA: ReadWave 1800 OPERATION MANUAL( AUTOMATED BLOOD COUNTS AND [...] Provider Dx Diagnosis Office Visit 03/18/2020 10:40a [facility] Bj Johnson, RP A R25.1 Tremor, unspecified N39.46 Mixed incontinence M54.5 Low back pain M13.0 Polyarthritis, unspecified R73.01 Impaired fasting glucose F17.210 Nicotine dependence, cigaret bud, uncomplicated 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 F33.1 Major depressive disorder, r ecurrent, moderate E66.09 Other obesity due to excess calories G47.9 Sleep disorder, unspecified Z23 Encounter for immunization R53.83 Other fatigue Office Visit 03/01/2020 2:20p [facility] Don Wilkinson PA J01.00 Acute maxillary sinusitis, unspecified H92.02 Otalgia, left ear Office Visit 12/07/2019 10:20a [facility] Bj Johnson, RP A R25.1 Tremor, [...] Treatment Future Appointment(s):* 06/20/2020 11:00 am - jB Johnson RPA at [facility] Functional Status Description No Information Available Mental Status Description No Information Available Referrals Refer to Reason for Referral Status Appt Date [facility] Pulmonary Sleep disorder-awakens tired-snores Sent [address] [place] [address] [phone] Rajeev Engel M.D. Bloody stool and something prolapsing. Sent 01/24/2020 826 [facility] [address] [place], [place] [address] [phone]
--- OUTSIDE RECORDS SUMMARY | 2020-07-05 09:34 | CCD | Continuity of Care Document ---
Author Author Dolores JOHNSON [facility] Organization Unknown Address [address] [place] [address] Phone [phone] Care Team Providers Care Windows Systems Administrator Name Role Phone Abe Cortez M.D AUTM [phone] Problems Active Problems Provider Date Peptic reflux [...] Wills D.O., FAAFP 10/13/2018 Azelastine HCL (Nasal) 137mcg/[place] Solution [place] Two Sprays In Each Nostril Two Times [...] Date Injection (SC)/(Im) Injection Pia Anne D., COAL LOADER-C 03/21/2015 Immunizations CPT Code Status Date Vaccine Reaction Lot # [id number] Given 03/18/2020 Influenza Virus Vaccine, Quadrivalent, Slit Virus, Im Use 3Y & Up [id number] Given 03/21/2015 Influenza Virus Vac. Split Virus Individuals 3 Years And Above [id number] Refused 05/11/2019 Influenza Virus Vaccine, Quadrivalent, Slit Virus, Im Use 3Y & Up RECEIVED AT WORK 03/2019 Vital Signs Date Vital Result Comment 03/18/2020 10:57am BP Systolic 112 mmHg BP Diastolic 72 mmHg Body Temperature 97.5 F Heart Rate 91 /min Respiratory Rate 16 /min Height 62 inches 5'2" Weight 193.00 lb [place] Body Weight 110 lb BMI (Body Mass Index) 35.3 kg/m2 O2 % BldC Oximetry 96 % 03/01/2020 2:43pm BP Systolic 124 mmHg BP Diastolic 80 mmHg Body Temperature 98.0 F Heart Rate 84 /min Respiratory Rate 16 /min Height 62 inches 5'2" Weight 189.00 lb [place] Body Weight 110 lb BMI (Body Mass Index) 34.6 kg/m2 O2 % BldC Oximetry 97 % Results Test Acquired Date Facility Test Result H/L Range Note CBC With Differential 05/03/2020 [facility] ([facility]) [phone] White Blood Count 12.5 10 High 4.0-10.0 [...] 36.0-66.0 Lymph % 25.4 % Normal 24.0-44.0 [place] % 6.4 % High 0.0-5.0 Eos % 6.2 % High 0.0-3.0 Baso % 0.6 % Normal 0.0-1.0 Immature Granulocyte % 0.4 % Normal 0-3.0 Nucleated Red Blood Cell % 0.0 % Normal 0-0 Neutrophils # 7.7 10 Normal 1.5-8.5 Lymph # 3.2 10 Normal 1.5-5.0 [place] # 0.8 10 Normal 0.0-0.8 Eos # 0.8 10 High 0.0-0.5 Baso # 0.1 10 Normal 0.0-0.2 Prothrombin Time/Inr 05/03/2020 [facility] ( [facility]) [phone] Prothrombin Time 12.9 seconds Normal 12.5-14.3 Inr 0.95 Normal 1 Laboratory test finding 05/03/2020 [facility] ([facility]) [phone] Lactic Acid Sepsis Protocol 1.6 mmol/L Normal 0.4- 2.0 2 Cardiac Marker Panel 05/03/2020 [facility]) [phone] CPK Creatine Phosphokinase 90 U/L Normal 26-19 2 CK-MB Value Mass 1.1 NG/ML Normal <3.6 MB/CK Relative Index 1.22 Normal < Or =4 3 Troponin I < 0.02 NG/ML Normal < 0.10 4 Liver Profile 05/03/2020 [facility] ([facility]) [phone] Ast/Sgot 24 U/L Normal 7-37 Alt/SGPT 56 U/L Normal 12-78 Alkaline Phosphatase 101 U/L Normal 45-117 Bilirubin,Total 0.3 mg/dL Normal 0.2-1.0 Bilirubin,Direct 0.1 mg/dL Normal 0.0-0.2 Total Protein 7.5 GM/DL Normal 6.4-8.2 Albumin 3.8 GM/DL Normal 3.2-5.2 Albumin/Globulin Ratio 1.0 Low 1.2-2.2 Basic Metabolic Profile 05/03/2020 [facility] ([facility]) [phone] Glucose, Fasting 103 mg/dL High 70-100 Blood [...] mg/dL Normal 8.5-10.1 Laboratory test finding 05/03/2020 [facility] ([facility]) [phone] NT-Pro BNP 42 pg/mL Normal <125 6 Lipase 99 U/L Normal 73-393 7 Thyroid Stimulating Hormone 3.160 uIU/ML Normal 0.358-3.740 8 Free T4 0.81 ng/dL Normal 0.76-1.46 9 HCG Serum Qualitative NEGATIVE Normal Negative 10 Blood Culture 05/03/2020 [facility] ([facility]) [phone] Blood Culture No growth after <SEE NOTE> 11 Respiratory Panel 05/03/2020 [facility] ([facility]) [phone] Respiratory Panel This respiratory <SEE NOTE> 12 [...] eGFR 102 # Calc 18 eGFR Non-Afr. Congol[place] 88 # Calc 19 CBC With Differential/Platelet [...] Immature Grans (Abs) 0.0 x10E3/uL 0.0-0.[address] [facility] Hematology Comments: TNP CBC 12/07/2019 [...] eGFR 88 # Calc 21 eGFR Non-Afr. Congolese 76 # Calc 22 Lipid Panel 12/07/2019 [...] 4 Troponin I Reference Interva l for [employer] LOCI: 99th Percentile= 0.00-0.045 ng/ml Risk Stratification: [...] Little GFR Left ESRD GFR <15 on [employer] 2244] @---END MOBILAB COMMEN T--- 2244] @---END MOBILAB COMMEN T--- 2244] @---END MOBILAB COMMEN T--- 2244] @---END MOBILAB COMMEN T--- 2244] @---END MOBILAB COMMEN T--- 11 No growth after 48 hours . A ll specimens observed for 5 days. Results final at that time. No growth after 24 hours . All specimens observed for 5 days. Results final at that time. No Growth after 72 hours. All specimens observed for 5 days. 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 F33.1 Major depressive disorder, r ecurrent, moderate E66.09 Other obesity due to excess calories G47.9 Sleep disorder, unspecified Z23 Encounter for immunization R53.83 Other fatigue Office Visit 03/01/2020 2:20p [facility] Don Wilkinson PA J01.00 Acute maxillary sinusitis, unspecified H92.02 Otalgia, left ear Office Visit 12/07/2019 10:20a [facility] Bj Johnson, RP A R25.1 Tremor, [...] Bj Johnson, RPA 03/18/2020 M13.0 Polyarthritis, unspecified Hieliela Bj mccormick, RPA 03/18/2020 R73.01 Impaired fasting glucose Bj Johnson, RPA 03/18/2020 F17.210 Nicotine dependence, cigarettes, uncomplicated Alex, Bj D, RPA 03/18/2020 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 Carlos Johnson, RPA 03/18/2020 F33.1 Major depressive disorder, recur rent, moderate Bj Johnson, RPA 03/18/2020 E66.09 Other obesity due to excess juan hosea Bj Johnson, RPA 03/18/2020 G47.9 Sleep disorder, unspecified Bj Duran, RPA 03/18/2020 Z23 Encounter for immunization Bj Pond, RPA 03/18/2020 R53.83 Other fatigue Bj Johnson, RPA 03/01/2020 J01.00 Acute maxillary sinusitis Franceac Sarina gaming PA 03/01/2020 H92.02 Otalgia Dm Wilkinson PA [...] rent, moderate Bj Johnson, RPA 12/07/2019 K92.1 Araseli Bj Johnson, RPA 12/07/2019 E78.6 Lipoprotein deficiency [...] disorder, recur rent, moderate Bj Johnson, RPA Plan of Treatment Future Appointment(s):* 05/09/2020 1:00 pm - Bj Johnson, GRAY at [facility] * 06/20/2020 11:00 am - Bj Johnson, GRAY at [facility] Functional Status Description No Information Available Mental Status Description No Information Available Referrals Refer to Reason for Referral Status Appt Date [facility] Pulmonary Sleep disorder-awakens tired-snores Sent [id number] [place] [address] [phone] Rajeev Engel M.D. Bloody stool and something prolapsing. Sent 01/24/2020 [address] [facility] [address] [place], [place] [address] [phone]
--- OUTSIDE RECORDS SUMMARY | 2020-07-05 09:34 | CCD | Continuity of Care Document ---
Author Author Dolores JOHNSON [facility] Organization Unknown Address [address] [place] [address] Phone [phone] Care Team Providers Care Gum Cook Name Role Phone Abe Cortez M.D AUTM [phone] Problems Active Problems Provider Date Peptic reflux [...] Wills D.O., FAAFP 10/13/2018 Azelastine HCL (Nasal) 137mcg/[place] Solution [place] Two Sprays In Each Nostril Two Times [...] Date Injection (SC)/(Im) Injection Pia Anne D., DISTRICT ENGINEER-C 03/21/2015 Immunizations CPT Code Status Date Vaccine Reaction Lot # [id number] Given 03/18/2020 Influenza Virus Vaccine, Quadrivalent, Slit Virus, Im Use 3Y & Up [id number] Given 03/21/2015 Influenza Virus Vac. Split Virus Individuals 3 Years And Above [id number] Refused 05/11/2019 Influenza Virus Vaccine, Quadrivalent, Slit Virus, Im Use 3Y & Up RECEIVED AT WORK 03/2019 Vital Signs Date Vital Result Comment 03/18/2020 10:57am BP Systolic 112 mmHg BP Diastolic 72 mmHg Body Temperature 97.5 F Heart Rate 91 /min Respiratory Rate 16 /min Height 62 inches 5'2" Weight 193.00 lb [place] Body Weight 110 lb BMI (Body Mass Index) 35.3 kg/m2 O2 % BldC Oximetry 96 % 03/01/2020 2:43pm BP Systolic 124 mmHg BP Diastolic 80 mmHg Body Temperature 98.0 F Heart Rate 84 /min Respiratory Rate 16 /min Height 62 inches 5'2" Weight 189.00 lb [place] Body Weight 110 lb BMI (Body Mass Index) 34.6 kg/m2 O2 % BldC Oximetry 97 % Results Test Acquired Date Facility Test Result H/L Range Note CBC With Differential 05/03/2020 [facility] ([facility]) [phone] White Blood Count 12.5 10 High 4.0-10.0 [...] 36.0-66.0 Lymph % 25.4 % Normal 24.0-44.0 [place] % 6.4 % High 0.0-5.0 Eos % 6.2 % High 0.0-3.0 Baso % 0.6 % Normal 0.0-1.0 Immature Granulocyte % 0.4 % Normal 0-3.0 Nucleated Red Blood Cell % 0.0 % Normal 0-0 Neutrophils # 7.7 10 Normal 1.5-8.5 Lymph # 3.2 10 Normal 1.5-5.0 [place] # 0.8 10 Normal 0.0-0.8 Eos # 0.8 10 High 0.0-0.5 Baso # 0.1 10 Normal 0.0-0.2 Prothrombin Time/Inr 05/03/2020 [facility] ( [facility]) [phone] Prothrombin Time 12.9 seconds Normal 12.5-14.3 Inr 0.95 Normal 1 Laboratory test finding 05/03/2020 [facility] ([facility]) [phone] Lactic Acid Sepsis Protocol 1.6 mmol/L Normal 0.4- 2.0 2 Cardiac Marker Panel 05/03/2020 [facility]) [phone] CPK Creatine Phosphokinase 90 U/L Normal 26-19 2 CK-MB Value Mass 1.1 NG/ML Normal <3.6 MB/CK Relative Index 1.22 Normal < Or =4 3 Troponin I < 0.02 NG/ML Normal < 0.10 4 Liver Profile 05/03/2020 [facility] ([facility]) [phone] Ast/Sgot 24 U/L Normal 7-37 Alt/SGPT 56 U/L Normal 12-78 Alkaline Phosphatase 101 U/L Normal 45-117 Bilirubin,Total 0.3 mg/dL Normal 0.2-1.0 Bilirubin,Direct 0.1 mg/dL Normal 0.0-0.2 Total Protein 7.5 GM/DL Normal 6.4-8.2 Albumin 3.8 GM/DL Normal 3.2-5.2 Albumin/Globulin Ratio 1.0 Low 1.2-2.2 Basic Metabolic Profile 05/03/2020 [facility] ([facility]) [phone] Glucose, Fasting 103 mg/dL High 70-100 Blood [...] mg/dL Normal 8.5-10.1 Laboratory test finding 05/03/2020 [facility] ([facility]) [phone] NT-Pro BNP 42 pg/mL Normal <125 6 Lipase 99 U/L Normal 73-393 7 Thyroid Stimulating Hormone 3.160 uIU/ML Normal 0.358-3.740 8 Free T4 0.81 ng/dL Normal 0.76-1.46 9 HCG Serum Qualitative NEGATIVE Normal Negative 10 Blood Culture 05/03/2020 [facility] ([facility]) [phone] Blood Culture No growth after <SEE NOTE> 11 Respiratory Panel 05/03/2020 [facility] ([facility]) [phone] Respiratory Panel This respiratory <SEE NOTE> 12 [...] eGFR 102 # Calc 18 eGFR Non-Afr. [place] 88 # Calc 19 CBC With Differential/Platelet [...] Immature Grans (Abs) 0.0 x10E3/uL 0.0-0.1 NRBC [facility] Hematology Comments: TNP CBC 12/07/2019 [...] eGFR 88 # Calc 21 eGFR Non-Afr. [place] 76 # Calc 22 Lipid Panel 12/07/2019 [...] 4 Troponin I Reference Interva l for [employer] LOCI: 99th Percentile= 0.00-0.045 ng/ml Risk Stratification: [...] Little GFR Left ESRD GFR <15 on [employer] 2244] @---END MOBILAB COMMEN T--- 2244] @---END [...] HCT IS 5% LESS SOURCE FOR DATA: [employer] 1800 OPERATION MANUAL( AUTOMATED BLOOD COUNTS AND [...] Provider Dx Diagnosis Office Visit 03/18/2020 10:40a [facility] Bj Johnson, RP A R25.1 Tremor, unspecified N39.46 Mixed incontinence M54.5 Low back pain M13.0 Polyarthritis, unspecified R73.01 Impaired fasting glucose F17.210 Nicotine dependence, cigaret bud, uncomplicated 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 F33.1 Major depressive disorder, r ecurrent, moderate E66.09 Other obesity due to excess calories G47.9 Sleep disorder, unspecified Z23 Encounter for immunization R53.83 Other fatigue Office Visit 03/01/2020 2:20p [facility] Don Wilkinson PA J01.00 Acute maxillary sinusitis, unspecified H92.02 Otalgia, left ear Office Visit 12/07/2019 10:20a [facility] Bj Johnson, RP A R25.1 Tremor, [...] 11:00 am - Bj Johnson RPA at [facility] Functional Status Description No Information Available Mental Status Description No Information Available Referrals Refer to Reason for Referral Status Appt Date [facility] Pulmonary Sleep disorder-awakens [place] Sent [address] [place] [address] [phone] Rajeev Engel M.D. Bloody stool and something prolapsing. Sent 01/24/2020 826 [facility] [address] [place], [place] [address] [phone]
--- OUTSIDE RECORDS SUMMARY | 2020-07-05 09:35 | CCD ---
Author Author [facility] Organization [facility] Address Unknown Phone Unavailable Care Team Providers Care Health And Safety Manager Name Role Phone Barrdana, Sarina PA Unavailable Unavailable Barraclough, Sarina PA Unavailable Unavailable Barraclough, Sarina PA Unavailable Unavailable Barraclough, Sarina PA Unavailable Unavailable Barraclough, Sarina PA Unavailable Unavailable Barraclough, Sarina PA Unavailable Unavailable Alex, D Bj PA Unavailable Unavailable Alex, D Bj PA Unavailable Unavailable Alex, D Bj PA Unavailable Unavailable Alex, D Bj PA Unavailable Unavailable Alex, D Bj PA Unavailable Unavailable Alex, D Bj PA Unavailable Unavailable Alex, D Bj PA Unavailable Unavailable Alex, D Bj PA Unavailable Unavailable Alex, D Bj PA Unavailable Unavailable Alex, D Bj PA Unavailable Unavailable Alex, D Bj PA Unavailable Unavailable Alex, D Bj PA Unavailable Unavailable Alex, D Bj PA Unavailable Unavailable Alex, D Bj PA Unavailable Unavailable Alex, D Bj PA Unavailable Unavailable Alex, D Bj PA Unavailable Unavailable Alex, D Bj PA Unavailable Unavailable Alex, D Bj PA Unavailable Unavailable Alex, D Bj PA Unavailable Unavailable Alex, D Bj PA Unavailable Unavailable Alex, D Bj PA Unavailable Unavailable Alex, D Bj PA Unavailable Unavailable Alex, D Bj PA Unavailable Unavailable Alex, D Bj PA Unavailable Unavailable Alex, D Bj PA Unavailable Unavailable Alex, D Bj PA Unavailable Unavailable Alex, D Bj PA Unavailable Unavailable Alex, D Bj PA Unavailable Unavailable Alex, D Bj PA Unavailable Unavailable Alex, D Bj PA Unavailable Unavailable Alex, D Bj PA Unavailable Unavailable Alex, D Bj PA Unavailable Unavailable Alex, D Bj PA Unavailable Unavailable Alex, D Bj PA Unavailable Unavailable Alex, D Bj PA Unavailable Unavailable Alex, D Bj PA Unavailable Unavailable Alex, D Bj PA Unavailable Unavailable Alex, D Bj PA Unavailable Unavailable Alex, D Bj PA Unavailable Unavailable Alex, D Bj PA Unavailable Unavailable Alex, D Bj PA Unavailable Unavailable Alex, D Bj PA Unavailable Unavailable Alex, D Bj PA Unavailable Unavailable Alex, D Bj PA Unavailable Unavailable Alex, D Bj PA Unavailable Unavailable Alex, D Bj PA Unavailable Unavailable Alex, D Bj PA Unavailable Unavailable Alex, D Bj PA Unavailable Unavailable Alex, D Bj PA Unavailable Unavailable Alex, D Bj PA Unavailable Unavailable Alex, D Bj PA Unavailable Unavailable Alex, D Bj PA Unavailable Unavailable Alex, D Bj PA Unavailable Unavailable Alex, D Bj PA Unavailable Unavailable Alex, D Bj PA Unavailable Unavailable Alex, D Bj PA Unavailable Unavailable Alex, D Bj PA Unavailable Unavailable Alex, D Bj PA Unavailable Unavailable Alex, D Bj PA Unavailable Unavailable Alex, D Bj PA Unavailable Unavailable Alex, D Bj PA Unavailable Unavailable Alex, D Bj PA Unavailable Unavailable Alex, D Bj PA Unavailable Unavailable RILEY RUST MD Unavailable Unavailable RILEY RUST MD Unavailable Unavailable RILEY RUST MD Unavailable Unavailable IRLEY RUST MD Unavailable Unavailable RILEY RUST MD Unavailable Unavailable RILEY RUST MD Unavailable Unavailable RILEY RUST MD Unavailable Unavailable RILEY RUST MD Unavailable Unavailable RILEY RUST MD Unavailable Unavailable RILEY RUST MD Unavailable Unavailable RILEY RUST MD Unavailable Unavailable RILEY RUST MD Unavailable Unavailable RILEY RUST MD Unavailable Unavailable RILEY RUST MD Unavailable Unavailable RILEY RUST MD Unavailable Unavailable REINDL, RILEY GRAHAM Unavailable Unavailable REINDL, RILEY GRAHAM Unavailable Unavailable REINDL, RILEY GRAHAM Unavailable Unavailable REINDL, RILEY GRAHAM Unavailable Unavailable REINDL, RILEY GRAHAM Unavailable Unavailable REINDL, RILEY GRAHAM Unavailable Unavailable REINDL, RILEY GRAHAM Unavailable Unavailable REINDL, RILEY GRAHAM Unavailable Unavailable REINDL, RILEY GRAHAM Unavailable Unavailable REINDL, RILEY GRAHAM Unavailable Unavailable REINDL, RILEY GRAHAM Unavailable Unavailable REINDL, RILEY GRAHAM Unavailable Unavailable REINDL, RILEY GRAHAM Unavailable Unavailable REINDL, RILEY GRAHAM Unavailable Unavailable REINDL, RILEY GRAHAM Unavailable Unavailable REINDL, RILEY GRAHAM Unavailable Unavailable REINDL, RIELY GRAHAM Unavailable Unavailable REINDL, RILEY GRAHAM Unavailable Unavailable REINDL, RILEY GRAHAM Unavailable Unavailable REINDL, RILEY GRAHAM Unavailable Unavailable REINDL, RILEY GRAHAM Unavailable Unavailable REINDL, RILEY GRAHAM Unavailable Unavailable REINDL, RILEY GRAHAM Unavailable Unavailable REINDL, RILEY GRAHAM Unavailable Unavailable REINDL, RILEY GRAHAM Unavailable Unavailable REINDL, RILEY GRAHAM Unavailable Unavailable REINDL, RILEY GRAHAM Unavailable Unavailable Kye Molina MD Unavailable Unavailable Kye Molina MD Unavailable Unavailable Kye Molina MD Unavailable Unavailable Kye Molina MD Unavailable Unavailable Kye Molina MD Unavailable Unavailable Kye Molina MD Unavailable Unavailable Kye Molina MD Unavailable Unavailable Kye Molina MD Unavailable Unavailable Kye Molina MD Unavailable Unavailable Kye Molina MD Unavailable Unavailable Kye Molina MD Unavailable Unavailable Kye Molina MD Unavailable Unavailable Kye Molina MD Unavailable Unavailable Kye Molina MD Unavailable Unavailable Kye Molina MD Unavailable Unavailable Kye Molina MD Unavailable Unavailable Kye Molina MD Unavailable Unavailable Kye Molina MD Unavailable Unavailable Kye Molina MD Unavailable Unavailable Kye Molina MD Unavailable Unavailable Kye Molina MD Unavailable Unavailable Kye Molina MD Unavailable Unavailable Kye Molina MD Unavailable Unavailable Kye Molina MD Unavailable Unavailable Kye Molina MD Unavailable Unavailable Kye Molina MD Unavailable Unavailable Kye Molina MD Unavailable Unavailable Kye Molina MD Unavailable Unavailable Kye Molina MD Unavailable Unavailable Kye Molina MD Unavailable Unavailable Kye Molina MD Unavailable Unavailable Kye Molina MD Unavailable Unavailable Kye Molina MD Unavailable Unavailable Kye Molina MD Unavailable Unavailable Kye Molina MD Unavailable Unavailable Kye Molina MD Unavailable Unavailable Kye Molina MD Unavailable Unavailable Kye Molina MD Unavailable Unavailable Kye Molina MD Unavailable Unavailable Kye Molina MD Unavailable Unavailable Kye Molina MD Unavailable Unavailable Kye Molina MD Unavailable Unavailable Kye Molina MD Unavailable Unavailable Kye Molina MD Unavailable Unavailable Kye Molina MD Unavailable Unavailable Kye Molina MD Unavailable Unavailable Kye Molina MD Unavailable Unavailable Kye Molina MD Unavailable Unavailable Kye Molina MD Unavailable Unavailable Kye Molina MD Unavailable Unavailable Kye Molina MD Unavailable Unavailable Kye Molina MD Unavailable Unavailable Kye Molina MD Unavailable Unavailable Kye Molina MD Unavailable Unavailable Kye Molina MD Unavailable Unavailable Kye Molina MD Unavailable Unavailable Kye Molina MD Unavailable Unavailable Kye Molina MD Unavailable Unavailable Kye Molina MD Unavailable Unavailable Kye Molina MD Unavailable Unavailable Kye Molina MD Unavailable Unavailable Kye Molina MD Unavailable Unavailable Kye Molina MD Unavailable Unavailable Kye Molina MD Unavailable Unavailable Kye Molina MD Unavailable Unavailable Kye Molina MD Unavailable Unavailable Kye Molina MD Unavailable Unavailable Kye Molina MD Unavailable Unavailable Kye Molina MD Unavailable Unavailable Kye Molina MD Unavailable Unavailable Kye Molina MD Unavailable Unavailable Kye Molina MD Unavailable Unavailable Kye Molina MD Unavailable Unavailable Kye Molina MD Unavailable Unavailable Kye Molina MD Unavailable Unavailable Re-disclosure Warning The records that you are about to access may contain information from federally-assisted alcohol or drug abuse programs. If such information is present, then the following federally mandated warning applies: This information has been disclosed to you from records protected by federal confidentiality rules (42 CFR part 2). The federal rules prohibit you from making any further disclosure of this information unless further disclosure is expressly permitted by the written consent of the person to whom it pertains or as otherwise permitted by 42 CFR part 2. A general authorization for the release of medical or other information is NOT sufficient for this purpose. The Federal rules restrict any use of the information to criminally investigate or prosecute any alcohol or drug abuse patient.The records that you are about to access may contain highly sensitive health information, the redisclosure of which is protected by Article 27-F of the [facility] Public Health law. If you continue you may have access to information: Regarding HIV / AIDS; Provided by facilities licensed or operated by the [facility] Office of Mental Health; or Provided by the [facility] Office for People With Developmental Disabilities. If such information is present, then the following [facility] mandated warning applies: This information has been disclosed to you from confidential records which are protected by state law. State law prohibits you from making any further disclosure of this information without the specific written consent of the person to whom it pertains, or as otherwise permitted by law. Any unauthorized further disclosure in violation of state law may result in a fine or long term sentence or both. A general authorization for the release of medical or other information is NOT sufficient authorization for further disc losure. Family History Family Member Name Family Member Gender Family Member Status Date o f Status Description Data Source(s) Unknown Male Problem [facility] ([facility]) Unknown Unknown Problem [facility] ([facility] father Unknown Unknown Problem [facility] ([facility], ) Unknown [facility] Problem [facility] ([facility], ) Unknown Unknown Problem [facility] ([facility], ) Unknown Unknown Problem [facility] ([facility], ) Unknown Unknown Problem [facility] ([facility], ) Unknown Unknown Problem [facility] ([facility], ) Unknown Unknown Encounters Encounter Providers Location Date Indications Data Source(s ) Outpatient Attender: Bj MATOS [place] [facility] 10:00:00 AM EST [facility] ([facility] Outpatient Attender: Bj Johnson [facility] 02/2020 01:20:00 PM EST [facility] ([facility] Outpatient Attender: Nadya Molina MD [facility] 04/01/2020 12:00:00 PM EDT [facility] ([facility] Outpatient Attender: Bj Johnson [facility] 10:40:00 AM EDT [facility] ([facility] Outpatient Attender: Sarina MATOS [facility] 03/01/2020 02:20:00 PM EDT [facility] ([facility] Outpatient Attender: RILEY Hill/Yue/Robert/Jayson gonzalez 01/24/2020 09:15:00 AM EDT [facility] ([facility] Outpatient Attender: Bj Johnson [facility] 10:20:00 AM EDT [facility] ([facility] Outpatient Attender: Bj MATOS [place] [facility] 08/2019 12:15:00 PM EST [facility] ([facility] Outpatient Attender: Bj Johnson [facility] 10:00:00 AM EST [facility] ([facility] Immunizations Vaccine Date Status Description Data Source(s) New in 2012. IIV4 03/18/2020 10:57:00 AM EDT completed [facility] ([facility] New in 2012. IIV4 05/11/2019 09:55:00 AM EST completed [facility] ([facility] Medications Medication Brand Name Start Date Product Form Dose Route Admi nistrative Instructions Pharmacy Instructions Status Indications Reaction Description Data Source(s) atomoxetine 40 MG Oral Capsule [Strattera] Strattera 12/31 /2020 12:00:00 AM EST ORAL completed [facility] ([facility] Trelegy Ellipta Trelegy Ellipta 06/20/2020 12:00:00 AM EST RESPIRATORY active [facility] ([facility] Trelegy Ellipta Trelegy Ellipta 05/29/2020 12:00:00 AM EST RESPIRATORY completed [facility] ([facility] 12 HR Bupropion Hydrochloride 90 MG / Na ltrexone hydrochloride 8 MG Extended Release Oral Tablet [Contrave] Contrave 03/18/2020 12:00:00 AM EDT ORAL completed [facility] cefdinir 300 MG Oral Capsule Cefdinir 03/01/2020 12:00:00 AM EDT ORAL completed [facility] benzonatate 100 MG Oral Capsule [Tessalon Perles] Tessalon P erles 03/01/2020 12:00:00 AM EDT ORAL completed [facility] ([facility] montelukast 10 MG Oral Tablet Montelukast Sodium 02/21/2020 12:00:00 AM EDT active [facility] ([facility] Methylcellulose 500 MG Oral Tablet [Citrucel] Citrucel 01/24/2020 12:00:00 AM EDT ORAL active MED[facility] ([facility], ) magnesium citrate 58.2 MG/ML Oral Solution Magnesium Citrate 01/24/2020 12:00:00 AM EDT active [facility] ([facility], ) POLYETHYLENE GLYCOL 3350 142 MG/ML Oral Solution [Miralax] M iralax 01/24/2020 12:00:00 AM EDT active M EDENT ([facility], ) Suprep Bowel Prep Kit Suprep Bowel Prep Kit 01/24/2020 12:00:00 AM EDT active MED[facility] ([facility], ) zonisamide 50 MG Oral Capsule Zonisamide 08/17/2019 12:00:00 AM EST active MED[facility] ([facility], ) zonisamide 50 MG Oral Capsule Zonisamide 08/17/2019 12:00:00 AM EST active MED[facility] ([facility]) cetirizine hydrochloride 10 MG Oral Capsule [Zyrtec] Zyrtec Allergy 05/11/2019 12:00:00 AM EST ORAL active M EDENT ([facility] montelukast 10 MG Oral Tablet [Singulair] Singulair 2018 12:00:00 AM EST ORAL active [facility] ( [facility] Insurance Providers Payer name Policy type / Coverage type Policy ID Covered republican ID Covered republican's relationship to lopez Policy Lopez Plan Information UMR [facility] [id number] SP [id number] UMR O [id number] S [id number] Ghi/Emblem HLTH (pr) Medigap Part B [id number] Self [id number] [employer] (pr) Medigap Part B [id number] Self [id number] Umr Risk MNGT (WC) Workers Compensation [id number] Self [id number] Umr (pr) Commercial [id number] Self [id number] Umr/[employer]om[employer] Risk MNGT (WC) Workers Compensation [id number] S elf [id number] Ghi/Emblem HLTH (pr) Medigap Part B [id number] Self [id number] [employer] (pr) Medigap Part B [id number] Self [id number] Umr Risk MNGT (WC) Workers Compensation [id number] Self [id number] Umr (pr) Commercial [id number] Self [id number] [employer] Medigap Part B [id number] Self [id number] Ghi Health Maintenance Organization (HMO) [id number] Se lf [id number] Ghi/Emblem HLTH (pr) Medigap Part B [id number] Self [id number] [employer] (pr) Medigap Part B [id number] Self [id number] Umr (pr) Commercial [id number] Self [id number] Umr/[employer] Risk MNGT (WC) Workers Compensation [id number] S elf [id number] Ghi/Emblem HLTH (pr) Medigap Part B [id number] Self [id number] [employer] (pr) Medigap Part B [id number] Self [id number] Umr (pr) Commercial [id number] Self [id number] UMR [facility] [id number] SP [id number] UMR [facility] [id number] SP [id number] Ghi/Emblem HLTH (pr) Medigap Part B [id number] Self [id number] [employer] (pr) Medigap Part B [id number] Self [id number] Umr (pr) Commercial [id number] Self [id number] Ghi/Emblem HLTH (pr) Medigap Part B [id number] Self [id number] [employer] (pr) Medigap Part B [id number] Self [id number] Umr (pr) Commercial [id number] Self [id number] UMR O [id number] S [id number] UMR O [id number] S [id number] Ghi/Emblem HLTH (pr) Medigap Part B [id number] Self [id number] [employer] (pr) Medigap Part B [id number] Self [id number] Umr (pr) Commercial [id number] Self [id number] O UNAVAILABLE UNAVAILA BLE UMR [facility] [id number] SP [id number] Umr/Uhc/[employer]om[employer] Health Maintenance Organization (HMO) [id number] Self [id number] [employer]OM[employer] [id number] SP [id number] [employer] Medigap Part B [id number] Self [id number] Ghi Health Maintenance Organization (HMO) [id number] Se lf [id number] [employer] W/C [id number] SP [id number] Ghi/Emblem HLTH (pr) Medigap Part B [id number] Self [id number] [employer] (pr) Commercial [id number] Self [id number] [employer] Risk MNGT (WC) Workers Compensation [id number] Self [id number] [employer] Commercial [id number] Self [id number] Ghi/Emblem HLTH (pr) Medigap Part B [id number] Self [id number] [employer] (pr) Commercial [id number] Self [id number] Ghi/Emblem HLTH (pr) Medigap Part B [id number] Self [id number] [employer] (pr) Commercial [id number] Self [id number] Ghi/Emblem HLTH (pr) Medigap Part B [id number] Self [id number] [employer] (pr) Commercial [id number] Self [id number] Ghi/Emblem HLTH (pr) Medigap Part B [id number] Self [id number] [employer] (pr) Commercial [id number] Self [id number] [employer] Commercial [id number] Self [id number] [employer] Commercial [id number] Self [id number] [employer] Commercial [id number] Self [id number] [employer] Commercial [id number] Self [id number] [employer] Commercial [id number] Self [id number] [employer] F [id number] SELF [id number] [employer] Medigap Part B Self Ghi Health Maintenance Organization (HMO) Se lf [employer]OM[employer] U [id number] Self [id number] [employer] W/C [id number] SP [id number] [employer] W/C [id number] SP [id number] [employer] W/C [id number] SP [id number] ONE CALL CARE MANAGEMENT P [id number] S [id number] [employer] PPO P [id number] S [id number] SELF PAY S S Workers Compensation Workers Compensation Self Ghi/[employer] Medigap Part B Self [employer] Commercial Self [id number] Problems, Conditions, and Diagnoses Code Display Name Description Problem Type Effective Dates Data Source(s) 29967669 Large liver Large liver Problem 06/12/2020 12:00:00 AM EST [facility] ([facility] Note: [facility] ER 05/04/20 [id number] Incomplete right bundle branch block Inc omplete right bundle branch block Problem 06/12/2020 12:00:00 AM EST [facility] ([facility] Note: [facility] 05/03/20 [id number] High density lipoprotein deficiency High density lipoprotein deficiency Problem 08/22/2019 12:00:00 AM EST [facility] ([facility] Surgeries/Procedures Procedure Description Date Indications Data Source(s) NON-INVASIVE PHYSIOLOGIC STUDY EXTREMITY 3 LEVLS 06/28 12:00:00 AM EST [facility] ([facility], ) NON-INVASIVE PHYSIOLOGIC STUDY EXTREMITY 3 LEVLS 06/28 12:00:00 AM EST [facility] ([facility], ) NON-INVASIVE PHYSIOLOGIC STUDY EXTREMITY 3 LEVLS 06/28 12:00:00 AM EST [facility] ([facility], ) NON-INVASIVE PHYSIOLOGIC STUDY EXTREMITY 3 LEVLS 06/28 12:00:00 AM EST [facility] ([facility], ) TSTG ANS FUNCJ CARDIOVAGAL INNERVAJ PARASYMP 1 12:00:00 AM EST [facility] ([facility], ) TSTG ANS FUNCJ CARDIOVAGAL INNERVAJ PARASYMP 1 12:00:00 AM EST [facility] ([facility], ) TESTING AUTONOMIC NERVOUS SYSTEM FUNCTION 06/28/2020 1 2:00:00 AM EST [facility] ([facility], ) TESTING AUTONOMIC NERVOUS SYSTEM FUNCTION 06/28/2020 1 2:00:00 AM EST [facility] ([facility], ) Remove Skin Tags Up To 15 06/27/2020 12:00:00 AM EST [facility] ([facility] Results ID Date Data Source [id number] 06/30/2020 10:00:00 AM EST [facility] Name Value Range Interpretation Code Description Data Jessica rce(s) Supporting Document(s) SARS coronavirus 2 RNA Not Detected [facility] [place] This lab was ordered by [facility] and reported by [facility]. ID Date Data Source [id number] 06/20/2020 12:00:00 AM EST [facility] Name Value Range Interpretation Code Description Data Jessica rce(s) Supporting Document(s) SARS coronavirus 2 RNA [facility] This lab was ordered by [facility] and rep orted by [facility]. ID Date Data Source [id number] 05/19/2020 12:00:00 AM EST [facility] Name Value Range Interpretation Code Description Data Jessica rce(s) Supporting Document(s) SARS-CoV2 Rapid Antigen [facility] lab [facility] and reported by [facility]. ID Date Data Source [id number] 05/03/2020 11:00:00 PM EST [facility] ([facility] Name Value Range Interpretation Code Description Data Jessica rce(s) Supporting Document(s) Blood Culture Laboratory test result [facility] ([facility] No growth after 72 hours . All specimens observed for 5 days. Results final at that time. No growth after 48 hours . All specimens observed for 5 days. Results final at that time. No growth after 24 hours . All specimens observed for 5 days. Results final at that time. NO GROWTH AFTER 5 DAYS ID Date Data Source [id number] 05/03/2020 11:00:00 PM EST [facility] ([facility] Name Value Range Interpretation Code Description Data Jessica rce(s) Supporting Document(s) Natriuretic peptide.B prohormone N-Terminal [Mass/volu me] in Serum or Plasma 42 pg/mL Normal (applies to non-numeric results) [facility] ([facility] 2246] @---END MOBILAB COMMENT--- Thyrotropin [Units/volume] in Serum or Plasma 3.160 uIU/ML 0. 358-3.740 Normal (applies to non-numeric results) [facility] ([facility] 2244] @---END MOBILAB COMMENT--- Thyroxine (T4) free [Mass/volume] in Serum or Plasma 0.81 ng/dL 0.76-1.46 Normal (applies to non-numeric results) [facility] ([facility] 2244] @---END MOBILAB COMMENT--- Lipoprotein lipase [Enzymatic activity/volume] in Serum or Plasm a 99 U/L 73-393 Normal (applies to non-numeric results) [facility] ([facility] 2244] @---END MOBILAB COMMENT--- Choriogonadotropin.beta subunit ( test) [Pres ence] in Serum or Plasma Laboratory test result Normal (applies to non-numeric results) [facility] ([facility] 5] @---END MOBILAB COMMENT--- ID Date Data Source [id number] 05/03/2020 11:00:00 PM EST [facility] ([facility] Name Value Range Interpretation Code Description Data Jessica rce(s) Supporting Document(s) Glucose, Fasting 103 mg/dL 70-100 Above high normal M [facility]ENT ([facility] Blood Urea Nitrogen 12 mg/dL 7-18 Normal (applies to non-nume glo results) [facility] ([facility] Creatinine For GFR 0.88 mg/dL 0.55-1.30 Normal (applies to non -numeric results) [facility] ([facility] Sodium Level 136 meq/L 136-145 Normal (applies to non-numeric res ults) [facility] ([facility] Glomerular Filtration Rate Laboratory test result Normal (applies to non- numeric results) [facility] ([facility] ) <content>Units are mL/min/1.73 m2</content>
<content></content>
<content>Chronic Kidney Disease Staging per NKF:</content>
<content></content>
<content>Stage I & II GFR >=60 Normal to Mildly Decreased</content>
<content>Stage III GFR 30-59 Moderately Decreased</content>
<content>Stage IV GFR 15-29 Severely Decreased</content>
<content>Stage V GFR <15 Very Little GFR Left</content>
<content>ESRD GFR <15 on MANAGER FURNITURE</content>
<content></content> Chloride Level 101 meq/L 98-107 Normal (applies to non-numeric r esults) [facility] ([facility] Carbon Dioxide Level 29 meq/L 21-32 Normal (applies to non-num tyler results) [facility] ([facility] Potassium Serum 4.1 meq/L 3.5-5.1 Normal (applies to non-numeric results) [facility] ([facility] Anion Gap 6 meq/L 8-16 Below low normal [facility] ( [facility] Calcium Level 9.6 mg/dL 8.5-10.1 Normal (applies to non-numeric re sults) [facility] ([facility] ID Date Data Source [id number] 05/03/2020 11:00:00 PM EST [facility] ([facility] Name Value Range Interpretation Code Description Data Jessica rce(s) Supporting Document(s) Alt/SGPT 56 U/L 12-78 Normal (applies to non-numeric resul ts) [facility] ([facility] Alkaline Phosphatase 101 U/L 45-117 Normal (applies to non-num tyler results) [facility] ([facility] Ast/Sgot 24 U/L 7-37 Normal (applies to non-numeric resul ts) [facility] ([facility] Total Protein 7.5 GM/DL 6.4-8.2 Normal (applies to non-numeric re sults) [facility] ([facility] Bilirubin,Direct 0.1 mg/dL 0.0-0.2 Normal (applies to non-numeric results) [facility] ([facility] Albumin 3.8 GM/DL 3.2-5.2 Normal (applies to non-numeric resul ts) [facility] ([facility] Bilirubin,Total 0.3 mg/dL 0.2-1.0 Normal (applies to non-numeric results) [facility] ([facility] Albumin/Globulin Ratio 1.0 1.2-2.2 Below low normal [facility] ([facility] ID Date Data Source [id number] 05/03/2020 11:00:00 PM EST [facility] ([facility] Name Value Range Interpretation Code Description Data Jessica e(s) Supporting Document(s) CPK Creatine Phosphokinase 90 U/L 26-192 Lindsey l (applies to non-numeric results) [facility] ([facility] ) CK-MB Value Mass 1.1 ng/mL Normal (applies to non-numeric results) [facility] ([facility] Troponin I Laboratory test result Normal (applies to non-n umeric results) [facility] ([facility] <content>Troponin I Reference Interval f or Siemens [place] LOCI:</content>
<content></content>
<content>99th Percentile= 0.00-0.045 ng/ml</content>
<content></content>
<content>Risk Stratification:</content>
<content><= 0.10 ng/ml Decreased Risk for Adverse Clinical</content>
<content>Events.</content>
<content>0.10-1.50 ng/ml Increased Risk for Adverse Clinical</content>
<content>Events. Evaluation of additional</content>
<content>criterion and/or repeat testing in 2-6</content>
<content>hours is suggested to rule out myocardial</content>
<content>damage.</content>
<content>>= 1.50 ng/ml Indicative of Myocardial Injury.</content>
<content></content> MB/CK Relative Index 1.22 Normal (applies to non-num tyler results) [facility] ([facility] <content>DIAGNOSIS CRITERIA</content>
<content>MMB ng/ml Relative Index (RI)</content>
<content>NON-AMI < or = 5 N/A</content>
<content>FONSECA ZONE > 5 < or = 4</content>
<content>AMI > 5 > 4</content>
<content></content> ID Date Data Source [id number] 05/03/2020 11:00:00 PM EST [facility] ([facility] Name Value Range Interpretation Code Description Data Jessica rce(s) Supporting Document(s) Lactate [Mass/volume] in Serum or Plasma 1.6 mmol/L 0.4-2.0 Normal (applies to non-numeric results) [facility] ([facility]) Y/N query for Sepsis Lactate Rule: Y ID Date Data Source [id number] 05/03/2020 11:00:00 PM EST [facility] ([facility] Name Value Range Interpretation Code Description Data Jessica rce(s) Supporting Document(s) Prothrombin Time 12.9 s 12.5-14.3 Normal (applies to non-numeric results) [facility] ([facility] Inr 0.95 Normal (applies to non-numeric resul ts) [facility] ([facility] THERAPUTIC HUMAN INR VALUES INDICATIONS NORMAL RANGES PROPHYLAXIS/TREATMENT OF: VENOUS THROMBOSIS 2.0-3.0 PULMONARY EMBOLISM 2.0-3.0 PREVENTION OF SYSTEMIC EMBOLISM FROM: TISSUE HEART VALVES 2.0-3.0 ACUTE MYOCARDIAL INFARCTION 2.0-3.0 VALVULAR HEART DISEASE 2.0-3.0 ATRIAL FIBRILLATION 2.0-3.0 MECHANICAL VALVES(HIGH RISK) 2.5-3.5 RECURRENT MYOCARDIAL INFARCTION 2.5-3.5 ID Date Data Source [id number] 05/03/2020 11:00:00 PM EST [facility] ([facility] Name Value Range Interpretation Code Description Data [facility] Supporting Document(s) White Blood Count 12.5 10 4.0-10.0 Above high normal [facility] ([facility] Red Blood Count 4.33 10 4.00-5.40 Normal (applies to non-numeric results) [facility] Mean Corpuscular Volume 92.1 fl 80.0-96.0 Normal ( applies to non-numeric results) [facility] ([facility] ) Mean Corpuscular Hemoglobin 30.3 pg 27.0-33.0 Norm al (applies to non-numeric results) [facility] ([facility] ) Hemoglobin 13.1 g/dL 12.0-15.5 Normal (applies to non-numeric resul ts) [facility] ([facility] Hematocrit 39.9 % 36.0-47.0 Normal (applies to non-numeric resul ts) [facility] Red Cell Distribution Width 13.1 % 11.5-14.5 Norm al (applies to non-numeric results) [facility] ([facility] ) Mean Corpuscular HGB Conc 32.8 g/dL 32.0-36.5 Normal (applies to non-numeric results) [facility] ([facility] ) Platelet Count, Automated 436 10 150-450 Normal (applies to non-numeric results) [facility] ([facility] ) Lymph % 25.4 % 24.0-44.0 Normal (applies to non-numeric resul ts) [facility] ([facility] Neutrophils % 61.0 % 36.0-66.0 Normal (applies to non-numeric re sults) [facility] ([facility] [place] % 6.4 % 0.0-5.0 Above high normal [facility] ([facility] Eos % 6.2 % 0.0-3.0 Above high normal [facility] ([facility] Immature Granulocyte % 0.4 % 0-3.0 Normal (applies to non-n umeric results) [facility] ([facility] Baso % 0.6 % 0.0-1.0 Normal (applies to non-numeric resul ts) [facility] ([facility] [place] # 0.8 10 0.0-0.8 Normal (applies to non-numeric resul ts) [facility] ([facility] Lymph # 3.2 10 1.5-5.0 Normal (applies to non-numeric resul ts) [facility] ([facility] Neutrophils # 7.7 10 1.5-8.5 Normal (applies to non-numeric re sults) [facility] ([facility] Nucleated Red Blood Cell % 0.0 % 0-0 Normal (applies to n on-numeric results) [facility] ([facility] Baso # 0.1 10 0.0-0.2 Normal (applies to non-numeric resul ts) [facility] ([facility] Eos # 0.8 10 0.0-0.5 Above high normal [facility] ([facility] ID Date Data Source [id number] 05/03/2020 10:47:00 PM EST [facility] ([facility] Name Value Range Interpretation Code Description Data Jessica rce(s) Supporting Document(s) Respiratory Panel Laboratory test result [facility] This respiratory PCR panel detects Influ ness A H1, H3 and 2009 H1 viruses, Influenza B virus, Resp iratory Syncytial Virus, Human metapneumovirus, Parainfluenza virus 1, 2, 3 and 4, Adenovirus, Rhinovirus/Enterovirus, Coronavirus HKU1, NL63, OC43, 229E and SARS-CoV-2 (COVID 19), Bordetella pertussis, Bordetella parapertussis, Mycoplasma pneumoniae and Chlamydia pneumoniae. NEGATIVE by MULTIPLEXED NUCLEIC ACID PCR SARS-CoV-2 (COVID 19) NEGATIVE - SARS-CoV-2 (COVID19) ID Date Data Source [id number] 04/04/2020 12:00:00 AM EDT [facility] Name Value Range Interpretation Code Description Data Jessica rce(s) Supporting Document(s) SARS-CoV2 Rapid Antigen [facility] This lab was ordered by [facility] and reported by [facility]. ID Date Data Source [id number] 03/18/2020 11:36:00 AM EDT [facility] ([facility] Name Value Range Interpretation Code Description Data Jessica rce(s) Supporting Document(s) Ebv Ab Vca, IgM Laboratory test result 0.0-35.9 [facility] ([facility] <content>Negative <36.0</content>
<content>Equivocal 36.0 - 43.9</content>
<content>Positive >43.9</content>
<content></content> Ebv Ab Vca, IgG 313.0 U/mL 0.0-17.9 Above high normal [place] [facility] ([facility] <content>Negative <18.0</content>
<content>Equivocal 18.0 - 21.9</content>
<content>Positive >21.9</content>
<content></content> Interpretation: Laboratory test result [facility]ON[facility] ([facility] EBV Interpretation Chart [place]: Antibody Present + [...] with EBV never develop antibodies to EBNA. Ebv Nuclear Antigen Ab, IgG 278.0 U/mL 0.0-17.9 Above high normal [facility] ([facility] <content>Negative <18.0</content>
<content>Equivocal 18.0 - 21.9</content>
<content>Positive >21.9</content>
<content></content> ID Date Data Source [id number] 03/18/2020 11:26:00 AM EDT [facility] ([facility] Name Value Range Interpretation Code Description Data Jessica rce(s) Supporting Document(s) Glu 122 mg/dL 70-110 Above high normal [facility] ([facility] CHRONIC KIDNEY DISEASE STAGING PER NKF: MALE [...] Normal 80 and above >32 mL/min Normal BUN 9 mg/dL 02-10 [facility] ([facility] CHRONIC KIDNEY DISEASE STAGING PER NKF: MALE [...] Normal 80 and above >32 mL/min Normal Na 131 mmol/L 136-145 Below low normal [facility] ( [facility] CHRONIC KIDNEY DISEASE STAGING PER NKF: MALE [...] Normal 80 and above >32 mL/min Normal Creat 0.8 mg/dL 0.5-1.0 [facility] ([facility] CHRONIC KIDNEY DISEASE STAGING PER NKF: MALE [...] Normal 80 and above >32 mL/min Normal BUN/Creatinine Ratio 11.4 CALC [facility] ([facility] CHRONIC KIDNEY DISEASE STAGING PER NKF: MALE [...] Normal 80 and above >32 mL/min Normal CL 98.9 mmol/L 98.0-107.0 [facility] ([facility] CHRONIC KIDNEY DISEASE STAGING PER NKF: MALE [...] Normal 80 and above >32 mL/min Normal Co2 19.5 mmol/L 22.0-29.0 Below low normal [facility] ([facility] CHRONIC KIDNEY DISEASE STAGING PER NKF: MALE [...] Normal 80 and above >32 mL/min Normal K 4.3 mmol/L 3.5-5.1 [facility] ([facility] CHRONIC KIDNEY DISEASE STAGING PER NKF: MALE [...] Normal 80 and above >32 mL/min Normal TP 6.7 g/dL 6.6-8.7 [facility] CHRONIC KIDNEY DISEASE STAGING PER NKF: MALE [...] Normal 80 and above >32 mL/min Normal CA 9.3 mg/dL 8.6-10.2 [facility] ([facility] CHRONIC KIDNEY DISEASE STAGING PER NKF: MALE [...] Normal 80 and above >32 mL/min Normal Alb 4.2 g/dL 3.4-4.8 [facility] ([facility] CHRONIC KIDNEY DISEASE STAGING PER NKF: MALE [...] Normal 80 and above >32 mL/min Normal A/G Ratio 1.7 CALC [facility] ([facility] CHRONIC KIDNEY DISEASE STAGING PER NKF: MALE [...] Normal 80 and above >32 mL/min Normal Globulin 2.5 CALC [facility] ([facility] CHRONIC KIDNEY DISEASE STAGING PER NKF: MALE [...] Normal 80 and above >32 mL/min Normal Alp 90.2 U/L 35-129 [facility] ([facility] CHRONIC KIDNEY DISEASE STAGING PER NKF: MALE [...] Normal 80 and above >32 mL/min Normal Ast (Sgot) 22 U/L 0-40 [facility] ([facility]endie [facility] CHRONIC KIDNEY DISEASE STAGING PER NKF: MALE [...] Normal 80 and above >32 mL/min Normal Tbili 0.16 mg/dL 0.0-1.2 [facility] ([facility] CHRONIC KIDNEY DISEASE STAGING PER NKF: MALE [...] Normal 80 and above >32 mL/min Normal Alt (SGPT) 34 U/L 0-41 [facility] ([facility] CHRONIC KIDNEY DISEASE STAGING PER NKF: MALE [...] Normal 80 and above >32 mL/min Normal eGFR 102 # [facility] ( [facility] CHRONIC KIDNEY DISEASE STAGING PER NKF: MALE [...] Normal 80 and above >32 mL/min Normal Osmolality-Calculated 263.5 CALC [facility] ([facility] CHRONIC KIDNEY DISEASE STAGING PER NKF: MALE [...] Normal 80 and above >32 mL/min Normal Anion Gap 17 mmol/L [facility] CHRONIC KIDNEY DISEASE STAGING PER NKF: MALE [...] Normal 80 and above >32 mL/min Normal eGFR Non-Afr. Venezuelan 88 # [facility] ([facility] CHRONIC KIDNEY DISEASE STAGING PER NKF: MALE [...] Normal 80 and above >32 mL/min Normal ID Date Data Source [id number] 03/01/2020 03:11:00 PM EDT [facility] ([facility] Name Value Range Interpretation Code Description Data Jessica rce(s) Supporting Document(s) Leukocytes [#/volume] in Blood by Automated count 10.4 x10E3/uL 3.4-1 0.8 [facility] ([facility] Erythrocytes [#/volume] in Blood by Automated count 4.61 x10E6/uL 3.7 7-5.28 [facility] ([facility] Hematocrit [Volume Fraction] of Blood by Automated count 42.1 % 3 4.0-46.6 [facility] ([facility] Hemoglobin [Mass/volume] in Blood 14.2 g/dL 11.1-15.9 [facility] ([facility] Erythrocyte mean corpuscular hemoglobin [Entitic mass] by Automated count 30.8 pg 26.6-33.0 [facility] ([facility] Erythrocyte mean corpuscular volume [Entitic volume] by Auto mated count 91 fL 79-97 [facility] ([facility] Erythrocyte distribution width [Ratio] by Automated count 13.0 % 11.7-15.4 [facility] ([facility] Platelets [#/volume] in Blood by Automated count 497 x10E3/uL 150-450 Above high normal [facility] ([facility] ) Erythrocyte mean corpuscular hemoglobin concentration [Mass/volume] by Automated count 33.7 g/dL 31.5-35.7 [facility] ([facility] Monocytes/100 leukocytes in Blood by Automated count 6 % [facility] ([facility] Neutrophils 62 % [facility] ([facility] Lymphs 23 % [facility] ([facility] Basophils/100 leukocytes in Blood by Automated count 1 % [facility] ([facility] Eosinophils/100 leukocytes in Blood by Automated count 8 % [facility] ([facility] Immature cells [#/volume] in Blood Laboratory test result [facility] ([facility] Monocytes [#/volume] in Blood 0.6 x10E3/uL 0.1-0.9 [facility] ([facility] Neutrophils [#/volume] in Blood by Automated count 6.4 x10E3/uL 1.4-7 .0 [facility] ([facility] Lymphocytes [#/volume] in Blood 2.4 x10E3/uL 0.7-3.1 [facility] ([facility] Immature granulocytes/100 leukocytes in Blood by Automated count 0 % [facility] ([facility] Basophils [#/volume] in Blood by Automated count 0.1 x10E3/uL 0.0-0.2 [facility] ([facility] Eosinophils [#/volume] in Blood by Automated count 0.8 x10E3/uL 0.0-0.4 Above high normal [facility] ([facility] ) Immature granulocytes [#/volume] in Blood by Automated count 0.0 x10E3/uL 0.0-0.1 [facility] ([facility] Morphology [Interpretation] in Blood Narrative Laboratory test result [facility] ([facility] Nucleated erythrocytes/100 leukocytes [Ratio] in Blood by Automated count Laboratory test result [facility] ID Date Data Source [id number] 01/02/2020 02:00:00 PM EDT [facility] Name Value Range Interpretation Code Description Data Jessica rce(s) Supporting Document(s) SARS coronavirus 2 RNA [facility] This lab was ordered by [facility] and reported by [facility]. ID Date Data Source [id number] 12/07/2019 11:04:00 AM EDT [facility] ([facility] Name Value Range Interpretation Code Description Data Jessica rce(s) Supporting Document(s) Trig 232 mg/dL 40-200 Above high normal [facility] ([facility] NORMAL RANGES Age WBC RBC HGB HCT [...] HCT IS 5% LESS SOURCE FOR DATA: [employer] 1800 OPERATION MANUAL( AUTOMATED BLOOD COUNTS AND [...] Normal 80 and above >32 mL/min Normal Chol 160 mg/dL 0-[address] [facility] NORMAL RANGES Age WBC RBC HGB HCT [...] HCT IS 5% LESS SOURCE FOR DATA: [employer] 1800 OPERATION MANUAL( AUTOMATED BLOOD COUNTS AND [...] Normal 80 and above >32 mL/min Normal Cholesterol in HDL [Mass/volume] in Serum or Plasma 38 mg/dL 45-65 Below low normal [facility] ([facility] ) NORMAL RANGES Age WBC RBC HGB HCT [...] HCT IS 5% LESS SOURCE FOR DATA: [employer] 1800 [employer]PERATION MANUAL( AUTOMATED BLOOD COUNTS AND [...] Normal 80 and above >32 mL/min Normal LDL_C 76 Calc 75-129 [facility] NORMAL RANGES Age WBC RBC HGB HCT [...] HCT IS 5% LESS SOURCE FOR DATA: WILLIAM DYN 1800 OPERATION MANUAL( AUTOMATED BLOOD COUNTS AND [...] Normal 80 and above >32 mL/min Normal Cho/HDL Ratio 4.[address] [facility] ([facility] NORMAL RANGES Age WBC RBC HGB HCT [...] HCT IS 5% LESS SOURCE FOR DATA: [employer] 1800 OPERATION MANUAL( AUTOMATED BLOOD COUNTS AND [...] Normal 80 and above >32 mL/min Normal ID Date Data Source [id number] 12/07/2019 11:04:00 AM [facility]REE[facility]Y [facility]ONT[facility] ([facility] Name Value Range Interpretation Code Description Data Jessica rce(s) Supporting Document(s) Creat 0.9 mg/dL 0.5-1.0 [facility] ([facility] NORMAL RANGES Age WBC RBC HGB HCT [...] HCT IS 5% LESS SOURCE FOR DATA: [employer] 1800 OPERATION MANUAL( AUTOMATED BLOOD COUNTS AND [...] Normal 80 and above >32 mL/min Normal Glu 97 mg/dL 70-[address] [facility] ([facility] NORMAL RANGES Age WBC RBC HGB HCT [...] HCT IS 5% LESS SOURCE FOR DATA: [employer] 1800 OPERATION MANUAL( AUTOMATED BLOOD COUNTS AND [...] Normal 80 and above >32 mL/min Normal BUN 10 mg/dL 8-23 [facility] NORMAL RANGES Age WBC RBC HGB HCT [...] HCT IS 5% LESS SOURCE FOR DATA: [employer] 1800 OPERATION MANUAL( AUTOMATED BLOOD COUNTS AND [...] Normal 80 and above >32 mL/min Normal Na 134 mmol/L 136-145 Below low normal [facility] ( [facility] NORMAL RANGES Age WBC RBC HGB HCT [...] HCT IS 5% LESS SOURCE FOR DATA: [employer] 1800 OPERATION MANUAL( AUTOMATED BLOOD COUNTS AND [...] Normal 80 and above >32 mL/min Normal BUN/Creatinine Ratio 11.0 [facility] ([facility] NORMAL RANGES Age WBC RBC HGB HCT [...] HCT IS 5% LESS SOURCE FOR DATA: [employer] 1800 OPERATION MANUAL( AUTOMATED BLOOD COUNTS AND [...] Normal 80 and above >32 mL/min Normal K 4.4 mmol/L 3.5-5.[address] [facility] ([facility] NORMAL RANGES Age WBC RBC HGB HCT [...] HCT IS 5% LESS SOURCE FOR DATA: [employer] 1800 OPERATION MANUAL( AUTOMATED BLOOD COUNTS AND [...] Normal 80 and above >32 mL/min Normal Co2 21.0 mmol/L 22.0-29.0 Below low normal [facility] ([facility] NORMAL RANGES Age WBC RBC HGB HCT [...] HCT IS 5% LESS SOURCE FOR DATA: [employer] 1800 OPERATION MANUAL( AUTOMATED BLOOD COUNTS AND [...] Normal 80 and above >32 mL/min Normal CL 101.1 mmol/L 98.0-107.[address] [facility] ([facility] NORMAL RANGES Age WBC RBC HGB HCT [...] HCT IS 5% LESS SOURCE FOR DATA: [employer] 1800 OPERATION MANUAL( AUTOMATED BLOOD COUNTS AND [...] Normal 80 and above >32 mL/min Normal TP 6.6 g/dL 6.6-8.[address] [facility] NORMAL RANGES Age WBC RBC HGB HCT [...] HCT IS 5% LESS SOURCE FOR DATA: [employer] 1800 OPERATION MANUAL( AUTOMATED BLOOD COUNTS AND [...] Normal 80 and above >32 mL/min Normal CA 9.3 mg/dL 8.6-10.2 [facility] NORMAL RANGES Age WBC RBC HGB HCT [...] HCT IS 5% LESS SOURCE FOR DATA: [employer] 1800 OPERATION MANUAL( AUTOMATED BLOOD COUNTS AND [...] Normal 80 and above >32 mL/min Normal A/G Ratio 1.[address] [facility] ([facility] NORMAL RANGES Age WBC RBC HGB HCT [...] HCT IS 5% LESS SOURCE FOR DATA: [employer] 1800 OPERATION MANUAL( AUTOMATED BLOOD COUNTS AND [...] Normal 80 and above >32 mL/min Normal Alb 4.2 g/dL 3.4-4.8 [facility] NORMAL RANGES Age WBC RBC HGB HCT [...] HCT IS 5% LESS SOURCE FOR DATA: [employer] 1800 OPERATION MANUAL( AUTOMATED BLOOD COUNTS AND [...] Normal 80 and above >32 mL/min Normal Globulin 2.4 CALC [facility] ([facility] NORMAL RANGES Age WBC RBC HGB HCT [...] HCT IS 5% LESS SOURCE FOR DATA: [employer] 1800 OPERATION MANUAL( AUTOMATED BLOOD COUNTS AND [...] Normal 80 and above >32 mL/min Normal Alt (SGPT) 24 U/L 0-[address] [facility] ([facility] NORMAL RANGES Age WBC RBC HGB HCT [...] HCT IS 5% LESS SOURCE FOR DATA: [employer] 1800 OPERATION MANUAL( AUTOMATED BLOOD COUNTS AND [...] Normal 80 and above >32 mL/min Normal Ast (Sgot) 17 U/L 0-40 [facility] NORMAL RANGES Age WBC RBC HGB HCT [...] HCT IS 5% LESS SOURCE FOR DATA: [employer] 1800 OPERATION MANUAL( AUTOMATED BLOOD COUNTS AND [...] Normal 80 and above >32 mL/min Normal Alp 82.9 U/L 35-129 [place] NORMAL RANGES Age WBC RBC HGB HCT [...] HCT IS 5% LESS SOURCE FOR DATA: [employer] 1800 OPERATION MANUAL( AUTOMATED BLOOD COUNTS AND [...] Normal 80 and above >32 mL/min Normal Osmolality-Calculated 267.9 CALC [facility] ([facility] NORMAL RANGES Age WBC RBC HGB HCT [...] HCT IS 5% LESS SOURCE FOR DATA: WILLIAM DYN 1800 OPERATION MANUAL( AUTOMATED BLOOD COUNTS AND [...] Normal 80 and above >32 mL/min Normal Tbili 0.29 mg/dL 0.0-1.2 [place] ([facility] NORMAL RANGES Age WBC RBC HGB HCT MCV PLT Adult M 4.1-10.9 4.20-6.30 12.0-18.0 37.0-51.0 80-97 140-440 Adult F 4.1-10.9 4.04-5.48 12.0-18.0 37.0-51.0 80- 140-440 0 -1 Yr 5.0-20.0 3.9-5.9 15-18 [...] HCT IS 5% LESS SOURCE FOR DATA: [employer] 1800 OPERATION MANUAL( AUTOMATED BLOOD COUNTS AND [...] Normal 80 and above >32 mL/min Normal Anion Gap 17 mmol/L [facility] [facility] NORMAL RANGES Age WBC RBC HGB HCT [...] HCT IS 5% LESS SOURCE FOR DATA: [employer] 1800 OPERATION MANUAL( AUTOMATED BLOOD COUNTS AND [...] Normal 80 and above >32 mL/min Normal eGFR Non-Afr. Venezuelan 76 # MEDENT ([facility] NORMAL RANGES Age WBC RBC HGB HCT [...] HCT IS 5% LESS SOURCE FOR DATA: [employer] 1800 OPERATION MANUAL( AUTOMATED BLOOD COUNTS AND [...] Normal 80 and above >32 mL/min Normal eGFR 88 # MEDENT ( [facility] NORMAL RANGES Age WBC RBC HGB HCT [...] HCT IS 5% LESS SOURCE FOR DATA: [employer] 1800 OPERATION MANUAL( AUTOMATED BLOOD COUNTS AND [...] Normal 80 and above >32 mL/min Normal ID Date Data Source [id number] 12/07/2019 11:04:00 AM EDT LISSETH ([facility] Name Value Range Interpretation Code Description Data Jessica rce(s) Supporting Document(s) WBC 11.4 10E3/uL 4.1-10.9 Above high normal LILLIAM Zhong ([facility] NORMAL RANGES Age WBC RBC HGB HCT [...] HCT IS 5% LESS SOURCE FOR DATA: [employer] 1800 OPERATION MANUAL( AUTOMATED BLOOD COUNTS AND [...] Normal 80 and above >32 mL/min Normal RBC 4.27 10E6/uL 4.20-6.[address] [facility] ([facility] NORMAL RANGES Age WBC RBC HGB HCT [...] HCT IS 5% LESS SOURCE FOR DATA: [employer] 1800 OPERATION MANUAL( AUTOMATED BLOOD COUNTS AND [...] Normal 80 and above >32 mL/min Normal HGB 13.8 g/dL 12.0-18.[address] [facility] NORMAL RANGES Age WBC RBC HGB HCT [...] HCT IS 5% LESS SOURCE FOR DATA: [employer] 1800 OPERATION MANUAL( AUTOMATED BLOOD COUNTS AND [...] Normal 80 and above >32 mL/min Normal MCH 32.3 pg 26.0-32.0 Above high normal [facility] ([facility] NORMAL RANGES Age WBC RBC HGB HCT [...] HCT IS 5% LESS SOURCE FOR DATA: [employer] 1800 OPERATION MANUAL( AUTOMATED BLOOD COUNTS AND [...] Normal 80 and above >32 mL/min Normal HCT 39.3 % 37.0-51.[address] [facility] NORMAL RANGES Age WBC RBC HGB HCT [...] HCT IS 5% LESS SOURCE FOR DATA: WILLIAM DYN 1800 OPERATION MANUAL( AUTOMATED BLOOD COUNTS AND [...] Normal 80 and above >32 mL/min Normal MCV 92.0 fL 80.0-97.[address] [facility] ([facility] NORMAL RANGES Age WBC RBC HGB HCT [...] HCT IS 5% LESS SOURCE FOR DATA: [employer] 1800 OPERATION MANUAL( AUTOMATED BLOOD COUNTS AND [...] Normal 80 and above >32 mL/min Normal MCHC 35.1 g/dL 31.0-36.[address] [facility] ([facility] NORMAL RANGES Age WBC RBC HGB HCT [...] HCT IS 5% LESS SOURCE FOR DATA: [employer] 1800 OPERATION MANUAL( AUTOMATED BLOOD COUNTS AND [...] Normal 80 and above >32 mL/min Normal RDW-CV 13.0 % 11.5-14.[address] [facility] ([facility] NORMAL RANGES Age WBC RBC HGB HCT [...] HCT IS 5% LESS SOURCE FOR DATA: [employer] 1800 OPERATION MANUAL( AUTOMATED BLOOD COUNTS AND [...] Normal 80 and above >32 mL/min Normal PLT 492 10E3/uL 140-440 Above high normal [facility] NORMAL RANGES Age WBC RBC HGB HCT [...] HCT IS 5% LESS SOURCE FOR DATA: [employer] 1800 OPERATION MANUAL( AUTOMATED BLOOD COUNTS AND [...] Normal 80 and above >32 mL/min Normal Lym% 22.6 % 10.0-58.5 [facility] ([facility] NORMAL RANGES Age WBC RBC HGB HCT [...] HCT IS 5% LESS SOURCE FOR DATA: [employer] 1800 OPERATION MANUAL( AUTOMATED BLOOD COUNTS AND [...] Normal 80 and above >32 mL/min Normal Neut% 67.9 % 37.0-92.0 LISSETH ([facility] NORMAL RANGES Age WBC RBC HGB HCT [...] HCT IS 5% LESS SOURCE FOR DATA: [employer] 1800 OPERATION MANUAL( AUTOMATED BLOOD COUNTS AND [...] Normal 80 and above >32 mL/min Normal Neut# 7.7 % 2.0-7.[address] [facility] ([facility] NORMAL RANGES Age WBC RBC HGB HCT [...] HCT IS 5% LESS SOURCE FOR DATA: [employer] 1800 OPERATION MANUAL( AUTOMATED BLOOD COUNTS AND [...] Normal 80 and above >32 mL/min Normal MXD% 9.5 % 0.1-24.0 [facility] NORMAL RANGES Age WBC RBC HGB HCT [...] HCT IS 5% LESS SOURCE FOR DATA: [employer] 1800 OPERATION MANUAL( AUTOMATED BLOOD COUNTS AND [...] Normal 80 and above >32 mL/min Normal Lym# 2.6 10E3/uL 0.6-4.[address] [facility] ([facility] NORMAL RANGES Age WBC RBC HGB HCT [...] HCT IS 5% LESS SOURCE FOR DATA: WILLIAM DYN 1800 OPERATION MANUAL( AUTOMATED BLOOD COUNTS AND [...] Normal 80 and above >32 mL/min Normal MXD# 1.1 10E3/uL 0.0-1.8 Piper ([facility] NORMAL RANGES Age WBC RBC HGB HCT [...] HCT IS 5% LESS SOURCE FOR DATA: [employer] 1800 OPERATION MANUAL( AUTOMATED BLOOD COUNTS AND [...] Normal 80 and above >32 mL/min Normal MPV 9.4 fL 9.0-13.[address] [facility] ([facility] NORMAL RANGES Age WBC RBC HGB HCT [...] HCT IS 5% LESS SOURCE FOR DATA: [employer] 1800 OPERATION MANUAL( AUTOMATED BLOOD COUNTS AND [...] Normal 80 and above >32 mL/min Normal ID Date Data Source [id number] 12/07/2019 11:02:00 AM EDT LISSETH ([facility] Name Value Range Interpretation Code Description Data Jessica rce(s) Supporting Document(s) Thyrotropin [Units/volume] in Serum or Plasma 1.068 ulU/mL 0.60-4.8 LISSETH ([facility] Procedure Vital Signs ID Date Data Source UNK Name Value Range Interpretation Code Description Data Source(s) Oxygen saturation in Arterial blood by Pulse oximetry 96 % 96 % LISSETH ([facility] [place] body weight 110 [lb_av] 110 [lb_av] MEDEN T ([facility] Body height 62 [in_i] 62 [in_i] LISSETH ([facility] 5'2" Respiratory rate 16 /min 16 /min MEDONEL ( [facility] Heart rate 99 /min 99 /min LISSETH ([facility] Body temperature 97.8 [degF] 97.8 [degF] MEDENT ([facility] Diastolic blood pressure 74 mm[Hg] 74 mm[Hg] [facility] ([facility] Systolic blood pressure 136 mm[Hg] 136 mm[Hg] M EDENT ([facility] Oxygen saturation in Arterial blood by Pulse oximetry 95 % 95 % MED[facility] ([facility] Body mass index (BMI) [Ratio] 35.8 kg/m2 35.8 k g/m2 [facility] ([facility] [place] body weight 110 [lb_av] 110 [lb_av] MEDEN T ([facility] Body weight 196.00 [lb_av] 196.00 [lb_av] MEDEN T ([facility] Body height 62 [in_i] 62 [in_i] MEDENT ([facility] 5'2" Respiratory rate 16 /min 16 /min MEDENT ( [facility] Heart rate 95 /min 95 /min MEDENT ([facility] Body temperature 97.2 [degF] 97.2 [degF] MEDENT ([facility] Diastolic blood pressure 62 mm[Hg] 62 mm[Hg] MED[facility] ([facility] Systolic blood pressure 104 mm[Hg] 104 mm[Hg] M EDENT ([facility] Oxygen saturation in Arterial blood by Pulse oximetry 98 % 98 % MEDENT ([facility] Body mass index (BMI) [Ratio] 35.8 kg/m2 35.8 k g/m2 [facility] ([facility] [place] body weight 110 [lb_av] 110 [lb_av] MEDEN T ([facility] Body weight 196.00 [lb_av] 196.00 [lb_av] MEDEN T ([facility] Body height 62 [in_i] 62 [in_i] MEDENT ([facility] 5'2" Respiratory rate 16 /min 16 /min MED[facility] ( [facility] Heart rate 95 /min 95 /min MEDENT ([facility] Body temperature 97.5 [degF] 97.5 [degF] MEDENT ([facility] Diastolic blood pressure 62 mm[Hg] 62 mm[Hg] MEDENT ([facility] Systolic blood pressure 126 mm[Hg] 126 mm[Hg] M EDENT ([facility] [place] body weight 115 [lb_av] 115 [lb_av] MEDEN T ([facility]) Body mass index (BMI) [Ratio] 31.9 kg/m2 31.9 k g/m2 MEDENT ([facility]) Body weight 180.00 [lb_av] 180.00 [lb_av] MEDEN T ([facility]) Body height 63 [in_i] 63 [in_i] MEDENT ([facility]) 5'3" Respiratory rate 12 /min 12 /min [facility] ( [facility]) Oxygen saturation in Arterial blood by Pulse oximetry 96 % 96 % MEDENT ([facility] Body mass index (BMI) [Ratio] 35.3 kg/m2 35.3 k g/m2 MEDENT ([facility] [place] body weight 110 [lb_av] 110 [lb_av] MEDEN T ([facility] Body weight 193.00 [lb_av] 193.00 [lb_av] MEDEN T ([facility] Body height 62 [in_i] 62 [in_i] MEDENT ([facility] 5'2" Respiratory rate 16 /min 16 /min MED[facility] ( [facility] Heart rate 91 /min 91 /min MEDENT ([facility] Body temperature 97.5 [degF] 97.5 [degF] MEDENT ([facility] Diastolic blood pressure 72 mm[Hg] 72 mm[Hg] MEDENT ([facility] Systolic blood pressure 112 mm[Hg] 112 mm[Hg] M EDENT ([facility] Oxygen saturation in Arterial blood by Pulse oximetry 97 % 97 % MEDENT ([facility] Body mass index (BMI) [Ratio] 34.6 kg/m2 34.6 k g/m2 MEDENT ([facility] [place] body weight 110 [lb_av] 110 [lb_av] MEDEN T ([facility] Body weight 189.00 [lb_av] 189.00 [lb_av] MEDEN T ([facility] Body height 62 [in_i] 62 [in_i] MEDENT ([facility] 5'2" Respiratory rate 16 /min 16 /min MEDENT ( [facility] Heart rate 84 /min 84 /min [facility] ([facility] Body temperature 98.0 [degF] 98.0 [degF] [facility] Diastolic blood pressure 80 mm[Hg] 80 mm[Hg] MEDENT ([facility] Systolic blood pressure 124 mm[Hg] 124 mm[Hg] [facility] Body weight 85.277 kg 85.[address] [facility] ([facility]) Body mass index (BMI) [Ratio] 33.3 kg/m2 33.3 k g/m2 [facility] ([facility]) Body weight 188.00 [lb_av] 188.00 [lb_av] MEDEN T ([facility]) Body height 63 [in_i] 63 [in_i] [facility] ([facility]) 5'3" Diastolic blood pressure 76 mm[Hg] 76 mm[Hg] [facility] ([facility]) Systolic blood pressure 136 mm[Hg] 136 mm[Hg] [facility] Oxygen saturation in Arterial blood by Pulse oximetry 98 % 98 % [facility] Body mass index (BMI) [Ratio] 33.5 kg/m2 33.5 k g/m2 [facility] [place] body weight 110 [lb_av] 110 [lb_av] MEDEN T ([facility] Body weight 183.00 [lb_av] 183.00 [lb_av] MEDEN T ([facility] Body height 62 [in_i] 62 [in_i] MEDENT ([facility] 5'2" Respiratory rate 16 /min 16 /min MED[facility] ( [facility] Heart rate 79 /min 79 /min [facility] ([facility] Body temperature 98.3 [degF] 98.3 [degF] [facility] ([facility] Diastolic blood pressure 70 mm[Hg] 70 mm[Hg] [facility] ([facility] Systolic blood pressure 124 mm[Hg] 124 mm[Hg] M EDENT ([facility] Oxygen saturation in Arterial blood by Pulse oximetry 97 % 97 % [facility] ([facility] Body mass index (BMI) [Ratio] 33.7 kg/m2 33.7 k g/m2 [facility] ([facility] Body weight 184.00 [lb_av] 184.00 [lb_av] MEDEN T ([facility] Body height 62 [in_i] 62 [in_i] MEDENT ([facility] 5'2" Respiratory rate 16 /min 16 /min [facility] ( [facility] Heart rate 95 /min 95 /min [facility] ([facility] Body temperature 98.4 [degF] 98.4 [degF] [facility] ([facility] Diastolic blood pressure 62 mm[Hg] 62 mm[Hg] [facility] ([facility] Systolic blood pressure 132 mm[Hg] 132 mm[Hg] M EDENT ([facility] [place] body weight 115 [lb_av] 115 [lb_av] MEDEN T ([facility], ) Body mass index (BMI) [Ratio] 31.9 kg/m2 31.9 k g/m2 MEDENT ([facility], ) Body weight 180.00 [lb_av] 180.00 [lb_av] MEDEN T ([facility]) Body height 63 [in_i] 63 [in_i] MEDENT ([facility]) 5'3" Respiratory rate 12 /min 12 /min MED[facility] ( [facility]) Heart rate 76 /min 76 /min MED[facility] ([facility]) Diastolic blood pressure 72 mm[Hg] 72 mm[Hg] MEDENT ([facility]) Systolic blood pressure 130 mm[Hg] 130 mm[Hg] Carlos RUBY ([facility]) Oxygen saturation in Arterial blood by Pulse oximetry 98 % 98 % LISSETH ([facility] Body mass index (BMI) [Ratio] 33.8 kg/m2 33.8 k g/m2 MEDONEL ([facility] Body weight 185.00 [lb_av] 185.00 [lb_av] MEDEN T ([facility] Body height 62 [in_i] 62 [in_i] MEDENT ([facility] 5'2" Respiratory rate 16 /min 16 /min MED[facility] ( [facility] Heart rate 82 /min 82 /min [facility] ([facility] Body temperature 98.7 [degF] 98.7 [degF] MED[facility] ([facility] Diastolic blood pressure 70 mm[Hg] 70 mm[Hg] MEDONEL ([facility] Systolic blood pressure 110 mm[Hg] 110 mm[Hg] M FLORI ([facility]
[2020-07-05] MEDS ORDERED: fentaNYL 100 MCG/2 ML INJECTION (J3010) As Ordered ONE (09:59)
[2020-07-05] MEDS ORDERED: LIDOCAINE 2% 100MG/5ML SDV (FOR ANES.) As Ordered ONE (09:59)
[2020-07-05] MEDS ORDERED: GLYCOPYRROLATE INJ 0.2 MG/ML 2 ML VIAL As Ordered ONE (09:59)
[2020-07-05] MEDS ORDERED: propofoL 500 MG/50 ML VIAL As Ordered ONE (09:59)
--- NOTE | 2020-07-05 10:52 | ROOR ---
Patient Name: Dolores Jones Procedure Date: 07/05/2020 10:39 AM Date of : 1975 Age: 45 Room: [facility] Gender: Female Note Status: Finalized Procedure: Upper GI endoscopy Indications: Functional Dyspepsia, Heartburn Providers: Rajeev ENGEL MD Referring MD: CARLO BUCKLEY Requesting Provider: Medicines: Monitored Anesthesia Care Complications: No immediate complications. Procedure: Pre-Anesthesia Assessment: - The heart rate, respiratory rate, oxygen saturations, blood pressure, adequacy of pulmonary ventilation, and response to care were monitored throughout the procedure. The Endoscope was introduced through the mouth, and advanced to the second part of duodenum. The upper GI endoscopy was accomplished without difficulty. The patient tolerated the procedure well. Findings: The esophagus was normal. The stomach was normal. The examined duodenum was normal. Impression: - Normal esophagus. - Normal stomach. - Normal examined duodenum. - No specimens collected. Recommendation: - Continue present medications. - Observe patient's clinical course. - Follow an antireflux regimen. Procedure Code(s): --- Professional --- 15084, Esophagogastroduodenoscopy, flexible, transoral; diagnostic, including collection of specimen(s) by brushing or washing, when performed (separate procedure) Diagnosis Code(s): --- Professional --- R12, Heartburn K30, Functional dyspepsia CPT copyright 2019 [employer]. All rights reserved. The codes documented in this report are preliminary and upon remote coders review may be revised to meet current compliance requirements. Rajeev Engel MD Rajeev ENGEL MD 07/05/2020 10:52:09 AM Electronically signed by Rajeev ENGEL MD Number of Addenda: 0 Note Initiated On: 07/05/2020 10:39 AM Estimated Blood Loss: Estimated blood loss: none.
--- NOTE | 2020-07-05 11:20 | ROOR ---
Patient Name: Dolores Jones Procedure Date: 07/05/2020 10:41 AM Date of : 1975 Age: 45 Room: [facility] Gender: Female Note Status: Finalized Procedure: Colonoscopy Indications: Hematochezia Providers: Rajeev ENGEL MD Referring MD: CARLO BUCKLEY Requesting Provider: Medicines: Monitored Anesthesia Care Complications: No immediate complications. Procedure: Pre-Anesthesia Assessment: - The heart rate, respiratory rate, oxygen saturations, blood pressure, adequacy of pulmonary ventilation, and response to care were monitored throughout the procedure. The Colonoscope was introduced through the anus and advanced to the terminal ileum. The colonoscopy was performed without difficulty. The patient tolerated the procedure well. The quality of the bowel preparation was inadequate. Findings: The perianal and digital rectal examinations were normal. A frond-like/villous non-obstructing medium-sized mass was found in the distal rectum. The mass was non-circumferential. The mass measured three cm in length. This was biopsied with a cold forceps for histology. A 5 mm polyp was found in the rectum. The polyp was sessile. The polyp was removed with a cold snare. Resection and retrieval were complete. Two sessile polyps were found in the sigmoid colon. The polyps were 4 to 5 mm in size. These polyps were removed with a cold snare. Resection and retrieval were complete. Impression: - Preparation of the colon was inadequate. 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 Biopsied. (NOT REMOVED) - One 5 mm polyp in the upper rectum, removed with a cold snare. Resected and retrieved. - Two 4 to 5 mm polyps in the sigmoid colon, removed with a cold snare. Resected and retrieved. Recommendation: - Refer to a colo-rectal surgeon at appointment to be scheduled. - Await pathology results. - Repeat colonoscopy in 1 year because the bowel preparation was poor. Procedure Code(s): --- Professional --- 79892, Colonoscopy, flexible; with removal of tumor(s), polyp(s), or other lesion(s) by snare technique 14845, 59, Colonoscopy, flexible; with biopsy, single or multiple Diagnosis Code(s): --- Professional --- K92.1, Melena (includes Hematochezia) K63.5, Polyp of colon K62.1, Rectal polyp D49.0, Neoplasm of unspecified behavior of digestive system CPT copyright 2019 [employer]. All rights reserved. The codes documented in this report are preliminary and upon ship ceiler review may be revised to meet current compliance requirements. Rajeev Engel MD Rajeev ENGEL MD 07/05/2020 11:19:30 AM Electronically signed by Rajeev ENGEL MD Number of Addenda: 0 Note Initiated On: 07/05/2020 10:41 AM Estimated Blood Loss: Estimated blood loss: none.
[2020-07-05 11:50] VITALS: BP 122/75
== END 2020-07-05 11:52 | disposition home or self-care (01) ==
LOC: M OPP 09:22
PROVIDERS: ATTEND Internal Medicine Gastroenterology
DX: K92.1 Melena (principal); K30 Functional dyspepsia; K63.5 Polyp of colon; F41.9 Anxiety disorder, unspecified; F32.9 Major depressive disorder, single episode, unspecified; G43.909 Migraine, unspecified, not intractable, without status migrainosus; F17.210 Nicotine dependence, cigarettes, uncomplicated; Z88.8 Allergy status to other drugs, medicaments and biological substances; Z91.09 Other allergy status, other than to drugs and biological substances; Z91.048 Other nonmedicinal substance allergy status; Z79.51 Long term (current) use of inhaled steroids; Z79.899 Other long term (current) drug therapy
CPT/HCPCS: 43235; 45380; 45385; 88305; J3010

== ENCOUNTER → 2020-10-23 | Outpatient (REF) | payer OTHER ==
[~2020-10-23] MED LIST changes: +MONT10TA10 PO; -MONT5TAB2 PO; -NS 1,000 ML IV ONE
[2020-10-23 18:58] LABS: APPEARANCE, URINE CLOUDY (CLEAR); BACTERIA, URINE AUTO 1+ (NEGATIVE); BILIRUBIN, URINE AUTO NEGATIVE (NEGATIVE); BLOOD, URINE BLOOD NEGATIVE (NEGATIVE); COLOR, URINE AMBER (YELLOW); GLUCOSE, URINE (UA) AUTO NEGATIVE (NEGATIVE); KETONE, URINE AUTO TRACE mg/dL (NEGATIVE); LEUKOCYTE ESTERASE, URINE AUTO TRACE (NEGATIVE); MUCUS, URINE SMALL (NEGATIVE); NITRITE, URINE AUTO NEGATIVE (NEGATIVE); PROTEIN, URINE AUTO 1+ mg/dL (NEGATIVE); RBC, URINE AUTO 6 /HPF (0-3); SPECIFIC GRAVITY URINE AUTO 1.029 (1.002-1.035); SQUAMOUS EPITHELIAL CELL UR AU 13 /HPF (0-6); WBC, URINE AUTO 13 /HPF (0-3)
== END ==
LOC: EEVIPCON 16:35 → M LAB REF 16:35
PROVIDERS: ATTEND Physician Assistant
DX: R30.0 Dysuria (principal)

== ENCOUNTER → 2021-03-27 | Outpatient (REF) | payer OTHER ==
[~2021-03-27] MED LIST changes: +OMEP40CA4 PO; -OMEP40CA97 PO
== END ==
LOC: M LAB REF 16:20
PROVIDERS: ATTEND Physician Assistant Medical
DX: R50.9 Fever, unspecified (principal); R05.9 Cough, unspecified

== ENCOUNTER → 2021-07-16 | Outpatient (REF) ==
[~2021-07-16] MED LIST changes: -MONT10TA10 PO; +MONT10TA97 PO
== END ==
LOC: M PLAIMG 13:50
PROVIDERS: ATTEND Internal Medicine
DX: Z00.00 Encounter for general adult medical examination without abnormal findings (principal)

== ENCOUNTER → 2021-11-05 | Outpatient (CLI) | payer OTHER, MEDICAID ==
[~2021-11-05] MED LIST changes: +BUPR-71 PO; -BUPR150T5 PO; +ISOVUE-300 61% 50ML VIAL As Ordered ONE; +LIDOCAINE 1% MDV 20ML VIAL As Ordered ONE; +methylPREDNISolone SUSP 40MG/ML 1ML VIAL (DEPO MEDROL) As Ordered ONE
== END ==
LOC: M RADPRO 10:25
PROVIDERS: ATTEND Physician Assistant
DX: M19.071 Primary osteoarthritis, right ankle and foot (principal)
CPT/HCPCS: 20605; 77002; J1030; Q9967

== ENCOUNTER → 2021-11-07 | Outpatient (CLI) | payer OTHER ==
[~2021-11-07] MED LIST changes: -ISOVUE-300 61% 50ML VIAL As Ordered ONE; -LIDOCAINE 1% MDV 20ML VIAL As Ordered ONE; -methylPREDNISolone SUSP 40MG/ML 1ML VIAL (DEPO MEDROL) As Ordered ONE
== END ==
LOC: M RAD 15:06
PROVIDERS: ATTEND Psychiatry & Neurology Neurology
DX: I73.9 Peripheral vascular disease, unspecified (principal); M79.605 Pain in left leg

== ENCOUNTER → 2022-01-15 | Outpatient (REF) | payer MEDICAID ==
[2022-01-15 21:16] LABS: APPEARANCE, URINE HAZY (CLEAR); BACTERIA, URINE AUTO NEGATIVE (NEGATIVE); BILIRUBIN, URINE AUTO NEGATIVE (NEGATIVE); BLOOD, URINE BLOOD NEGATIVE (NEGATIVE); COLOR, URINE YELLOW (YELLOW); GLUCOSE, URINE (UA) AUTO NEGATIVE (NEGATIVE); KETONE, URINE AUTO NEGATIVE (NEGATIVE); LEUKOCYTE ESTERASE, URINE AUTO 1+ (NEGATIVE); MUCUS, URINE SMALL (NEGATIVE); NITRITE, URINE AUTO NEGATIVE (NEGATIVE); PROTEIN, URINE AUTO NEGATIVE (NEGATIVE); RBC, URINE AUTO 1 /HPF (0-3); SPECIFIC GRAVITY URINE AUTO 1.015 (1.002-1.035); SQUAMOUS EPITHELIAL CELL UR AU 2 /HPF (0-6); UROBILINOGEN, URINE AUTO 0.2 mg/dL (0.0-2.0); WBC, URINE AUTO 4 /HPF (0-3)
== END ==
LOC: M LAB REF 20:57
PROVIDERS: ATTEND Physician Assistant
DX: N39.0 Urinary tract infection, site not specified (principal)

== ENCOUNTER → 2022-04-02 | Outpatient (CLI) | payer MEDICAID, OTHER ==
[~2022-04-02] MED LIST changes: +ALBU6.7H6 INH; -PROV108A INH
== END ==
LOC: M WUC 15:08
PROVIDERS: ATTEND Physician Assistant
DX: M25.531 Pain in right wrist (principal)

== ENCOUNTER → 2022-04-03 | Outpatient (CLI) | payer OTHER | LOC: M PAIN 09:00 | PROVIDERS: ATTEND Nurse Practitioner Family | DX: M51.16 Intervertebral disc disorders with radiculopathy, lumbar region (principal); G89.29 Other chronic pain; F17.210 Nicotine dependence, cigarettes, uncomplicated; Z88.5 Allergy status to narcotic agent; Z88.8 Allergy status to other drugs, medicaments and biological substances; Z91.040 Latex allergy status; Z91.09 Other allergy status, other than to drugs and biological substances; Z79.51 Long term (current) use of inhaled steroids; Z79.899 Other long term (current) drug therapy ==

== ENCOUNTER → 2022-06-29 | Outpatient (CLI) | payer OTHER | LOC: M PAIN 13:45 | PROVIDERS: ATTEND Nurse Practitioner Family | DX: M51.16 Intervertebral disc disorders with radiculopathy, lumbar region (principal); K64.9 Unspecified hemorrhoids; F17.210 Nicotine dependence, cigarettes, uncomplicated; Z91.040 Latex allergy status; Z88.5 Allergy status to narcotic agent; Z91.048 Other nonmedicinal substance allergy status; Z88.8 Allergy status to other drugs, medicaments and biological substances; Z79.899 Other long term (current) drug therapy ==

== ENCOUNTER → 2022-07-03 | Outpatient (CLI) | payer OTHER ==
[2022-07-03 19:36] LABS: BASO # 0.1 10^3/uL (0.0-0.2); BASO % 0.6 % (0.0-1.0); EOS # 0.8 10^3/uL (0.0-0.5); EOS % 6.2 % (0.0-3.0); HEMATOCRIT 40.3 % (36.0-47.0); LYMPH # 3.9 10^3/uL (1.5-5.0); LYMPH % 31.6 % (24.0-44.0); MEAN CORPUSCULAR HEMOGLOBIN 28.9 pg (27.0-33.0); MEAN CORPUSCULAR HGB CONC 32.3 g/dl (32.0-36.5); MEAN CORPUSCULAR VOLUME 89.6 fl (80.0-96.0); MONO # 0.6 10^3/uL (0.0-0.8); MONO % 5.2 % (2.0-8.0); NEUTROPHILS # 6.9 10^3/uL (1.5-8.5); NEUTROPHILS % 56.1 % (36.0-66.0); PLATELET COUNT, AUTOMATED 483 10^3/uL (150-450); WHITE BLOOD COUNT 12.4 10^3/uL (4.0-10.0)
[2022-07-03 20:02] LABS: ALKALINE PHOSPHATASE 112 U/L (46-116); ALT/SGPT 87 U/L (7.0-40); AST/SGOT 58 U/L (<34); BILIRUBIN,TOTAL 0.4 MG/DL (0.3-1.2); BLOOD UREA NITROGEN 14 MG/DL (9-23); CARBON DIOXIDE LEVEL 25 MMOL/L (20-31); CHLORIDE LEVEL 103 MMOL/L (98-107); CHOLESTEROL LEVEL 206 MG/DL (<200); CHOLESTEROL RISK RATIO 3.97 (<5); CREATININE FOR GFR 1.01 MG/DL (0.55-1.30); GLOMERULAR FILTRATION RATE > 60.0 (>58); GLUCOSE, FASTING 95 MG/DL (60-100); HDL CHOLESTEROL 51.8 MG/DL (>40); LDL CHOLESTEROL 117.6 MG/DL (<100); NON-HDL-C 154 MG/DL; POTASSIUM SERUM 4.6 MMOL/L (3.5-5.1); SODIUM LEVEL 137 MMOL/L (136-145); THYROID STIMULATING HORMONE 1.266 uIU/ML (0.55-4.78); TOTAL PROTEIN 7.9 G/DL (5.7-8.2); TRIGLYCERIDES LEVEL 183 MG/DL (<150)
== END ==
LOC: M WUC 15:32
PROVIDERS: ATTEND Physician Assistant
DX: R25.1 Tremor, unspecified (principal); E78.6 Lipoprotein deficiency; R73.01 Impaired fasting glucose

== ENCOUNTER → 2022-07-21 | Outpatient (CLI) | payer OTHER | LOC: M WHC 13:52 | PROVIDERS: ATTEND Specialist | DX: Z12.31 Encounter for screening mammogram for malignant neoplasm of breast (principal) ==

== ENCOUNTER → 2022-10-03 | Outpatient (REF) | payer OTHER ==
[2022-10-03 12:39] LABS: BASO # 0.1 10^3/uL (0.0-0.2); BASO % 0.6 % (0.0-1.0); EOS # 1.3 10^3/uL (0.0-0.5); EOS % 10.6 % (0.0-3.0); HEMATOCRIT 32.2 % (36.0-47.0); HEMOGLOBIN 10.5 g/dl (12.0-15.5); LYMPH # 2.8 10^3/uL (1.5-5.0); LYMPH % 22.6 % (24.0-44.0); MEAN CORPUSCULAR HEMOGLOBIN 28.5 pg (27.0-33.0); MEAN CORPUSCULAR HGB CONC 32.6 g/dl (32.0-36.5); MEAN CORPUSCULAR VOLUME 87.5 fl (80.0-96.0); MONO # 0.6 10^3/uL (0.0-0.8); MONO % 4.6 % (2.0-8.0); NEUTROPHILS # 7.7 10^3/uL (1.5-8.5); NEUTROPHILS % 61.1 % (36.0-66.0); PLATELET COUNT, AUTOMATED 677 10^3/uL (150-450); RED BLOOD COUNT 3.68 10^6/uL (4.00-5.40); WHITE BLOOD COUNT 12.5 10^3/uL (4.0-10.0)
[2022-10-03 13:04] LABS: ALBUMIN 3.3 G/DL (3.2-5.2); ALKALINE PHOSPHATASE 160 U/L (46-116); ALT/SGPT 40 U/L (7.0-40); AST/SGOT 26 U/L (<34); BILIRUBIN,TOTAL 0.4 MG/DL (0.3-1.2); BLOOD UREA NITROGEN 12 MG/DL (9-23); CALCIUM LEVEL 8.4 MG/DL (8.5-10.1); CARBON DIOXIDE LEVEL 28 MMOL/L (20-31); CHLORIDE LEVEL 105 MMOL/L (98-107); CREATININE FOR GFR 0.94 MG/DL (0.55-1.30); GLOMERULAR FILTRATION RATE > 60.0 (>58); GLUCOSE, FASTING 115 MG/DL (60-100); POTASSIUM SERUM 3.3 MMOL/L (3.5-5.1); SODIUM LEVEL 141 MMOL/L (136-145); TOTAL PROTEIN 6.8 G/DL (5.7-8.2)
[2022-10-03 13:10] LABS: HEMOGLOBIN A1c 6.1 % (4.0-6.0)
== END ==
LOC: M LAB REF 11:59
PROVIDERS: ATTEND Physician Assistant
DX: R25.1 Tremor, unspecified (principal); R73.01 Impaired fasting glucose

== ENCOUNTER → 2022-10-12 | Outpatient (REF) | payer OTHER ==
[2022-10-12 21:39] LABS: APPEARANCE, URINE MANUAL CLOUDY (CLEAR)
[2022-10-12 21:40] LABS: COLOR, URINE MANUAL BROWN (YELLOW)
[2022-10-12 21:59] LABS: BILIRUBIN, URINE MANUAL NEGATIVE (NEGATIVE); BLOOD URINE MANUAL POSITIVE (NEGATIVE); GLUCOSE, URINE (UA) MANUAL NEGATIVE (NEGATIVE); KETONE, URINE MANUAL NEGATIVE (NEGATIVE); LEUKOCYTE ESTERASE, URINE MAN TRACE (NEGATIVE); NITRITE, URINE MANUAL NEGATIVE (NEGATIVE); PROTEIN, URINE MANUAL 3+ mg/dL (NEGATIVE); SPECIFIC GRAVITY,URINE MANUAL 1.025 (1.002-1.035); UROBILINOGEN, URINE MANUAL NORMAL (NORMAL)
[2022-10-12 22:06] LABS: BACTERIA, URINE LARGE AMOUNT; HYALINE CAST, URINE NONE SEEN /lpf (0-1); RBC, URINE TNTC /hpf (0-3); SQUAMOUS EPITHELIAL CELL URINE SMALL AMOUNT /hpf (SMALL AMT); TRANSITIONAL EPI CELLS, URINE SMALL AMOUNT /hpf; WBC, URINE TNTC /hpf (0-3)
== END ==
LOC: M LAB REF 21:21
PROVIDERS: ATTEND Physician Assistant Medical
DX: N39.0 Urinary tract infection, site not specified (principal)

== ENCOUNTER → 2022-10-13 | Outpatient (CLI) | payer OTHER | LOC: M PAIN 11:00 | PROVIDERS: ATTEND Nurse Practitioner Family | DX: M51.16 Intervertebral disc disorders with radiculopathy, lumbar region (principal); Z79.899 Other long term (current) drug therapy; F17.210 Nicotine dependence, cigarettes, uncomplicated; Z91.040 Latex allergy status; Z88.8 Allergy status to other drugs, medicaments and biological substances; Z91.048 Other nonmedicinal substance allergy status ==

== ENCOUNTER → 2022-11-10 | Outpatient (CLI) | payer OTHER | LOC: M PAIN 11:00 | PROVIDERS: ATTEND Nurse Practitioner Family | DX: M79.18 Myalgia, other site (principal); K64.9 Unspecified hemorrhoids; F17.210 Nicotine dependence, cigarettes, uncomplicated; Z79.899 Other long term (current) drug therapy; Z91.040 Latex allergy status; Z88.8 Allergy status to other drugs, medicaments and biological substances; Z91.048 Other nonmedicinal substance allergy status ==

== ENCOUNTER → 2022-12-03 | Outpatient (CLI) | payer OTHER ==
[~2022-12-03] MED LIST changes: +TRIAMCINOLONE ACETONIDE SUSP 40MG/ML 1ML VIAL As Ordered ONE; +oxyCODONE 5MG TAB As Ordered ONE
== END ==
LOC: M PAIN 15:00
PROVIDERS: ATTEND Anesthesiology
DX: M79.12 Myalgia of auxiliary muscles, head and neck (principal); M79.18 Myalgia, other site; F17.210 Nicotine dependence, cigarettes, uncomplicated; Z79.899 Other long term (current) drug therapy; Z91.040 Latex allergy status; Z91.048 Other nonmedicinal substance allergy status; Z88.6 Allergy status to analgesic agent; Z88.8 Allergy status to other drugs, medicaments and biological substances
CPT/HCPCS: 20553; J3301; S0020

== ENCOUNTER → 2022-12-20 | Outpatient (REF) | payer OTHER ==
[~2022-12-20] MED LIST changes: -TRIAMCINOLONE ACETONIDE SUSP 40MG/ML 1ML VIAL As Ordered ONE; -oxyCODONE 5MG TAB As Ordered ONE
[2022-12-20 20:03] LABS: APPEARANCE, URINE HAZY (CLEAR); BACTERIA, URINE AUTO NEGATIVE (NEGATIVE); BILIRUBIN, URINE AUTO NEGATIVE (NEGATIVE); BLOOD, URINE BLOOD 2+ (NEGATIVE); CALCIUM OXALATE CRYSTALS SMALL; COLOR, URINE AMBER (YELLOW); GLUCOSE, URINE (UA) AUTO NEGATIVE (NEGATIVE); KETONE, URINE AUTO TRACE mg/dL (NEGATIVE); LEUKOCYTE ESTERASE, URINE AUTO NEGATIVE (NEGATIVE); MUCUS, URINE SMALL (NEGATIVE); NITRITE, URINE AUTO NEGATIVE (NEGATIVE); PROTEIN, URINE AUTO NEGATIVE (NEGATIVE); RBC, URINE AUTO 110 /HPF (0-3); SQUAMOUS EPITHELIAL CELL UR AU 1 /HPF (0-6); WBC, URINE AUTO 4 /HPF (0-3)
== END ==
LOC: M LAB REF 19:24
PROVIDERS: ATTEND Physician Assistant
DX: N39.0 Urinary tract infection, site not specified (principal)

== ENCOUNTER → 2023-01-01 | Outpatient (CLI) | payer OTHER ==
[~2023-01-01] MED LIST changes: -MAXA10TA15 PO; +RIZA10TA66 PO
[2023-01-01 16:50] LABS: HEMATOCRIT 41.8 % (36.0-47.0); HEMOGLOBIN 13.5 g/dl (12.0-15.5); MEAN CORPUSCULAR HEMOGLOBIN 28.3 pg (27.0-33.0); MEAN CORPUSCULAR HGB CONC 32.3 g/dl (32.0-36.5); MEAN CORPUSCULAR VOLUME 87.6 fl (80.0-96.0); PLATELET COUNT, AUTOMATED 492 10^3/uL (150-450); RED BLOOD COUNT 4.77 10^6/uL (4.00-5.40); WHITE BLOOD COUNT 11.1 10^3/uL (4.0-10.0)
[2023-01-01 17:17] LABS: ALBUMIN 3.8 G/DL (3.2-5.2); ALKALINE PHOSPHATASE 110 U/L (46-116); ALT/SGPT 37 U/L (7.0-40); AST/SGOT 17 U/L (<34); BILIRUBIN,TOTAL 0.3 MG/DL (0.3-1.2); BLOOD UREA NITROGEN 16 MG/DL (9-23); CALCIUM LEVEL 9.3 MG/DL (8.5-10.1); CARBON DIOXIDE LEVEL 25 MMOL/L (20-31); CHLORIDE LEVEL 105 MMOL/L (98-107); CREATININE FOR GFR 0.97 MG/DL (0.55-1.30); GLOMERULAR FILTRATION RATE > 60.0 (>58); GLUCOSE, FASTING 117 MG/DL (60-100); POTASSIUM SERUM 4.2 MMOL/L (3.5-5.1); SODIUM LEVEL 139 MMOL/L (136-145)
== END ==
LOC: M WUC 09:38
PROVIDERS: ATTEND Physician Assistant
DX: E87.6 Hypokalemia (principal); D50.9 Iron deficiency anemia, unspecified; R73.03 Prediabetes

== ENCOUNTER → 2023-01-04 | Outpatient (CLI) | payer OTHER | LOC: M PAIN 15:15 | PROVIDERS: ATTEND Nurse Practitioner Family | DX: M50.10 Cervical disc disorder with radiculopathy, unspecified cervical region (principal); F17.210 Nicotine dependence, cigarettes, uncomplicated; Z79.899 Other long term (current) drug therapy; Z88.6 Allergy status to analgesic agent; Z88.8 Allergy status to other drugs, medicaments and biological substances; Z91.048 Other nonmedicinal substance allergy status; Z91.040 Latex allergy status ==

== ENCOUNTER → 2023-01-15 | Outpatient (CLI) | payer OTHER ==
[~2023-01-15] MED LIST changes: +ISOVUE-M 300 61% 15ML VIAL As Ordered ONE; +LIDOCAINE 1% SDV 30ML VIAL As Ordered ONE; +diazePAM 5MG TABLET As Ordered ONE; +methylPREDNISolone SUSP 40MG/ML 1ML VIAL (DEPO MEDROL) As Ordered ONE; +oxyCODONE 5MG TAB As Ordered ONE
== END ==
LOC: M PAIN 13:00
PROVIDERS: ATTEND Anesthesiology
DX: M51.16 Intervertebral disc disorders with radiculopathy, lumbar region (principal); Z79.899 Other long term (current) drug therapy; F17.210 Nicotine dependence, cigarettes, uncomplicated; Z91.040 Latex allergy status; Z88.6 Allergy status to analgesic agent; Z91.048 Other nonmedicinal substance allergy status; Z88.8 Allergy status to other drugs, medicaments and biological substances
CPT/HCPCS: 62323; J1030; Q9967

== ENCOUNTER → 2023-04-01 | Outpatient (CLI) | payer OTHER, MEDICARE ==
[~2023-04-01] MED LIST changes: -ISOVUE-M 300 61% 15ML VIAL As Ordered ONE; -LIDOCAINE 1% SDV 30ML VIAL As Ordered ONE; -diazePAM 5MG TABLET As Ordered ONE; -methylPREDNISolone SUSP 40MG/ML 1ML VIAL (DEPO MEDROL) As Ordered ONE; -oxyCODONE 5MG TAB As Ordered ONE
== END ==
LOC: M PAIN 11:30
PROVIDERS: ATTEND Anesthesiology
DX: M51.16 Intervertebral disc disorders with radiculopathy, lumbar region (principal); M51.17 Intervertebral disc disorders with radiculopathy, lumbosacral region; M50.10 Cervical disc disorder with radiculopathy, unspecified cervical region; F17.210 Nicotine dependence, cigarettes, uncomplicated; Z79.899 Other long term (current) drug therapy; Z91.040 Latex allergy status; Z88.8 Allergy status to other drugs, medicaments and biological substances; Z91.048 Other nonmedicinal substance allergy status; Z88.5 Allergy status to narcotic agent

== ENCOUNTER → 2023-06-04 | Outpatient (CLI) | payer MEDICARE, OTHER ==
[~2023-06-04] MED LIST changes: +ISOVUE-M 300 61% 15ML VIAL As Ordered ONE; +LIDOCAINE 1% SDV 30ML VIAL As Ordered ONE; +dexAMETHasone 10MG/1ML VIAL PRES.FREE As Ordered ONE; +diazePAM 5MG TABLET As Ordered ONE; +oxyCODONE 5MG TAB As Ordered ONE
== END ==
LOC: M PAIN 14:15
PROVIDERS: ATTEND Anesthesiology
DX: M51.16 Intervertebral disc disorders with radiculopathy, lumbar region (principal); G89.29 Other chronic pain; F17.210 Nicotine dependence, cigarettes, uncomplicated; Z88.6 Allergy status to analgesic agent; Z88.8 Allergy status to other drugs, medicaments and biological substances; Z91.09 Other allergy status, other than to drugs and biological substances; Z79.899 Other long term (current) drug therapy
CPT/HCPCS: 64483; 64484; J0665; J1100; Q9967

== ENCOUNTER → 2023-06-25 | Outpatient (CLI) | payer MEDICARE, OTHER ==
[~2023-06-25] MED LIST changes: -ISOVUE-M 300 61% 15ML VIAL As Ordered ONE; -LIDOCAINE 1% SDV 30ML VIAL As Ordered ONE; -dexAMETHasone 10MG/1ML VIAL PRES.FREE As Ordered ONE; -diazePAM 5MG TABLET As Ordered ONE; -oxyCODONE 5MG TAB As Ordered ONE
== END ==
LOC: M PLARAD 08:47
PROVIDERS: ATTEND Anesthesiology
DX: M51.16 Intervertebral disc disorders with radiculopathy, lumbar region (principal)

== ENCOUNTER → 2023-07-05 | Outpatient (CLI) | payer MEDICARE, OTHER | LOC: M PAIN 14:30 | PROVIDERS: ATTEND Nurse Practitioner Family | DX: M50.10 Cervical disc disorder with radiculopathy, unspecified cervical region (principal); G89.29 Other chronic pain; F17.210 Nicotine dependence, cigarettes, uncomplicated; Z79.899 Other long term (current) drug therapy; Z91.041 Radiographic dye allergy status; Z91.048 Other nonmedicinal substance allergy status; Z88.8 Allergy status to other drugs, medicaments and biological substances; Z88.5 Allergy status to narcotic agent ==

== ENCOUNTER → 2023-07-16 | Outpatient (CLI) | payer OTHER, MEDICARE | LOC: M PAIN 16:15 | PROVIDERS: ATTEND Anesthesiology | DX: M51.16 Intervertebral disc disorders with radiculopathy, lumbar region (principal); M79.10 Myalgia, unspecified site; M50.10 Cervical disc disorder with radiculopathy, unspecified cervical region; F17.210 Nicotine dependence, cigarettes, uncomplicated; Z79.899 Other long term (current) drug therapy; Z88.6 Allergy status to analgesic agent; Z88.8 Allergy status to other drugs, medicaments and biological substances; Z91.048 Other nonmedicinal substance allergy status ==

== ENCOUNTER → 2023-07-21 | Outpatient (REF) | payer MEDICARE, OTHER ==
[2023-07-21 14:53] LABS: HEMATOCRIT 42.9 % (36.0-47.0); HEMOGLOBIN 13.9 g/dl (12.0-15.5); MEAN CORPUSCULAR HEMOGLOBIN 29.4 pg (27.0-33.0); MEAN CORPUSCULAR HGB CONC 32.4 g/dl (32.0-36.5); MEAN CORPUSCULAR VOLUME 90.9 fl (80.0-96.0); PLATELET COUNT, AUTOMATED 444 10^3/uL (150-450); RED BLOOD COUNT 4.72 10^6/uL (4.00-5.40); WHITE BLOOD COUNT 11.6 10^3/uL (4.0-10.0)
[2023-07-21 14:57] LABS: ALBUMIN 3.6 G/DL (3.2-5.2); ALKALINE PHOSPHATASE 91 U/L (46-116); ALT/SGPT 49 U/L (7.0-40); AST/SGOT 29 U/L (<34); BILIRUBIN,TOTAL 0.5 MG/DL (0.3-1.2); BLOOD UREA NITROGEN 14 MG/DL (9-23); CARBON DIOXIDE LEVEL 29 MMOL/L (20-31); CHLORIDE LEVEL 101 MMOL/L (98-107); CHOLESTEROL LEVEL 231 MG/DL (<200); CHOLESTEROL RISK RATIO 5.27 (<5); CREATININE FOR GFR 1.09 MG/DL (0.55-1.30); GLOMERULAR FILTRATION RATE 56.6 (>51); GLUCOSE, FASTING 145 MG/DL (60-100); HDL CHOLESTEROL 43.8 MG/DL (>40); NON-HDL-C 187.2 MG/DL; POTASSIUM SERUM 4.1 MMOL/L (3.5-5.1); SODIUM LEVEL 136 MMOL/L (136-145); TOTAL PROTEIN 7.2 G/DL (5.7-8.2); TRIGLYCERIDES LEVEL 433 MG/DL (<150)
== END ==
LOC: M LABWUC 12:45
PROVIDERS: ATTEND Physician Assistant
DX: R73.03 Prediabetes (principal); E78.5 Hyperlipidemia, unspecified; R25.1 Tremor, unspecified; F33.1 Major depressive disorder, recurrent, moderate

== ENCOUNTER → 2023-08-12 | Outpatient (REF) | payer MEDICARE, OTHER | LOC: M LABWUC 12:35 | PROVIDERS: ATTEND Nurse Practitioner Family | DX: R21 Rash and other nonspecific skin eruption (principal) ==

== ENCOUNTER → 2023-08-25 | Outpatient (CLI) | payer MEDICARE | LOC: M PAIN 16:00 | PROVIDERS: ATTEND Anesthesiology | DX: M47.812 Spondylosis without myelopathy or radiculopathy, cervical region (principal); F17.210 Nicotine dependence, cigarettes, uncomplicated; Z79.899 Other long term (current) drug therapy; Z88.6 Allergy status to analgesic agent; Z88.8 Allergy status to other drugs, medicaments and biological substances; Z91.048 Other nonmedicinal substance allergy status; Z88.5 Allergy status to narcotic agent ==

== ENCOUNTER → 2023-09-03 | Outpatient (REF) | payer MEDICARE | LOC: M SFHCWAGY 17:36 | PROVIDERS: ATTEND Specialist | DX: Z12.4 Encounter for screening for malignant neoplasm of cervix (principal) ==

== ENCOUNTER → 2023-09-03 | Outpatient (CLI) | payer MEDICARE, OTHER | LOC: M WHC 13:17 | PROVIDERS: ATTEND Specialist | DX: Z12.31 Encounter for screening mammogram for malignant neoplasm of breast (principal); R92.323 Mammographic fibroglandular density, bilateral breasts ==

== ENCOUNTER → 2023-11-19 | Outpatient (CLI) | payer MEDICARE ==
[~2023-11-19] MED LIST changes: +ISOVUE-M 300 61% 15ML VIAL As Ordered ONE; +LIDOCAINE 1% SDV 30ML VIAL As Ordered ONE
== END ==
LOC: M PAIN 14:15
PROVIDERS: ATTEND Anesthesiology
DX: M47.812 Spondylosis without myelopathy or radiculopathy, cervical region (principal); G89.29 Other chronic pain; M54.2 Cervicalgia; F17.210 Nicotine dependence, cigarettes, uncomplicated; Z79.899 Other long term (current) drug therapy; Z88.6 Allergy status to analgesic agent; Z88.5 Allergy status to narcotic agent; Z88.8 Allergy status to other drugs, medicaments and biological substances; Z91.048 Other nonmedicinal substance allergy status
CPT/HCPCS: 64490; 64491; J0665; Q9967

== ENCOUNTER → 2023-12-05 | Outpatient (REF) | payer MEDICARE ==
[~2023-12-05] MED LIST changes: -ISOVUE-M 300 61% 15ML VIAL As Ordered ONE; -LIDOCAINE 1% SDV 30ML VIAL As Ordered ONE
== END ==
LOC: M LAB REF 17:14
PROVIDERS: ATTEND Physician Assistant Medical
DX: B34.9 Viral infection, unspecified (principal)

== ENCOUNTER → 2023-12-07 | Outpatient (CLI) | payer MEDICARE | LOC: M PAIN 11:15 | PROVIDERS: ATTEND Nurse Practitioner Family | DX: M47.812 Spondylosis without myelopathy or radiculopathy, cervical region (principal); F17.200 Nicotine dependence, unspecified, uncomplicated; Z79.891 Long term (current) use of opiate analgesic; Z79.899 Other long term (current) drug therapy; Z88.5 Allergy status to narcotic agent; Z88.6 Allergy status to analgesic agent; Z91.048 Other nonmedicinal substance allergy status ==

== ENCOUNTER → 2024-01-04 | Outpatient (CLI) | payer MEDICARE ==
[2024-01-04 18:48] LABS: HEMATOCRIT 39.1 % (36.0-47.0); MEAN CORPUSCULAR HEMOGLOBIN 30.4 pg (27.0-33.0); MEAN CORPUSCULAR HGB CONC 33.2 g/dl (32.0-36.5); MEAN CORPUSCULAR VOLUME 91.4 fl (80.0-96.0); PLATELET COUNT, AUTOMATED 394 10^3/uL (150-450); RED BLOOD COUNT 4.28 10^6/uL (4.00-5.40)
[2024-01-04 18:56] LABS: HEMOGLOBIN A1c 5.6 % (4.0-6.0)
[2024-01-04 19:10] LABS: ALBUMIN 3.8 G/DL (3.2-5.2); ALKALINE PHOSPHATASE 102 U/L (46-116); ALT/SGPT 33 U/L (7.0-40); AST/SGOT 15 U/L (<34); BILIRUBIN,TOTAL 0.2 MG/DL (0.3-1.2); BLOOD UREA NITROGEN 13 MG/DL (9-23); CALCIUM LEVEL 9.3 MG/DL (8.5-10.1); CARBON DIOXIDE LEVEL 30 MMOL/L (20-31); CHLORIDE LEVEL 107 MMOL/L (98-107); CREATININE FOR GFR 0.97 MG/DL (0.55-1.30); GLOMERULAR FILTRATION RATE > 60.0 (>51); GLUCOSE, FASTING 102 MG/DL (60-100); POTASSIUM SERUM 4.3 MMOL/L (3.5-5.1); SODIUM LEVEL 141 MMOL/L (136-145); TOTAL PROTEIN 6.7 G/DL (5.7-8.2)
[2024-01-05 09:28] LABS: WHITE BLOOD COUNT 9.9 10^3/uL (4.0-10.0)
== END ==
LOC: M WUC 15:40
PROVIDERS: ATTEND Physician Assistant
DX: E78.5 Hyperlipidemia, unspecified (principal); R73.03 Prediabetes

== ENCOUNTER → 2024-02-04 | Outpatient (CLI) | payer MEDICARE ==
[~2024-02-04] MED LIST changes: +ISOVUE-M 300 61% 15ML VIAL As Ordered ONE; +LIDOCAINE 1% SDV 30ML VIAL As Ordered ONE; +TRIAMCINOLONE ACETONIDE SUSP 40MG/ML 1ML VIAL As Ordered ONE
== END ==
LOC: M PAIN 14:00
PROVIDERS: ATTEND Anesthesiology
DX: M47.812 Spondylosis without myelopathy or radiculopathy, cervical region (principal); G89.29 Other chronic pain; F17.210 Nicotine dependence, cigarettes, uncomplicated; Z79.899 Other long term (current) drug therapy; Z88.1 Allergy status to other antibiotic agents; Z88.8 Allergy status to other drugs, medicaments and biological substances; Z91.048 Other nonmedicinal substance allergy status; Z88.5 Allergy status to narcotic agent
CPT/HCPCS: 64490; 64491; J0665; J3301; Q9967

== ENCOUNTER → 2024-02-23 | Outpatient (CLI) | payer MEDICARE ==
[~2024-02-23] MED LIST changes: -ISOVUE-M 300 61% 15ML VIAL As Ordered ONE; -LIDOCAINE 1% SDV 30ML VIAL As Ordered ONE; -TRIAMCINOLONE ACETONIDE SUSP 40MG/ML 1ML VIAL As Ordered ONE
== END ==
LOC: M WHC 14:22
PROVIDERS: ATTEND Specialist
DX: N92.6 Irregular menstruation, unspecified (principal)

== ENCOUNTER → 2024-02-29 | Outpatient (CLI) | payer MEDICARE | LOC: M PAIN 14:45 | PROVIDERS: ATTEND Nurse Practitioner Family | DX: G89.29 Other chronic pain (principal); M47.812 Spondylosis without myelopathy or radiculopathy, cervical region; M51.16 Intervertebral disc disorders with radiculopathy, lumbar region; F17.210 Nicotine dependence, cigarettes, uncomplicated; Z79.899 Other long term (current) drug therapy; Z88.8 Allergy status to other drugs, medicaments and biological substances; Z88.6 Allergy status to analgesic agent; Z91.048 Other nonmedicinal substance allergy status; Z88.5 Allergy status to narcotic agent ==

== ENCOUNTER → 2024-04-19 | Outpatient (CLI) | payer MEDICARE ==
[2024-04-20 06:44] LABS: HEMOGLOBIN A1c 5.3 % (4.0-6.0)
== END ==
LOC: M WUC 13:17
PROVIDERS: ATTEND Physician Assistant
DX: R73.03 Prediabetes (principal)

== ENCOUNTER → 2024-04-28 | Outpatient (CLI) | payer MEDICARE ==
[~2024-04-28] MED LIST changes: +LIDOCAINE 1% SDV 30ML VIAL As Ordered ONE; +dexAMETHasone 10MG/1ML VIAL PRES.FREE As Ordered ONE; +diazePAM 5MG TABLET As Ordered ONE; +oxyCODONE 5MG TAB As Ordered ONE
== END ==
LOC: M PAIN 14:00
PROVIDERS: ATTEND Anesthesiology
DX: M47.812 Spondylosis without myelopathy or radiculopathy, cervical region (principal); G89.29 Other chronic pain; M54.2 Cervicalgia; F17.210 Nicotine dependence, cigarettes, uncomplicated; Z79.899 Other long term (current) drug therapy; Z88.6 Allergy status to analgesic agent; Z88.8 Allergy status to other drugs, medicaments and biological substances; Z91.048 Other nonmedicinal substance allergy status; Z88.5 Allergy status to narcotic agent
CPT/HCPCS: 64633; 64634; J0665; J1100

== ENCOUNTER → 2024-05-30 | Outpatient (CLI) | payer MEDICARE ==
[~2024-05-30] MED LIST changes: -LIDOCAINE 1% SDV 30ML VIAL As Ordered ONE; -dexAMETHasone 10MG/1ML VIAL PRES.FREE As Ordered ONE; -diazePAM 5MG TABLET As Ordered ONE; -oxyCODONE 5MG TAB As Ordered ONE
== END ==
LOC: M PAIN 10:15
PROVIDERS: ATTEND Nurse Practitioner Family
DX: M47.812 Spondylosis without myelopathy or radiculopathy, cervical region (principal); G89.29 Other chronic pain; F17.210 Nicotine dependence, cigarettes, uncomplicated; Z79.899 Other long term (current) drug therapy; Z88.6 Allergy status to analgesic agent; Z88.8 Allergy status to other drugs, medicaments and biological substances; Z91.048 Other nonmedicinal substance allergy status; Z88.5 Allergy status to narcotic agent

== ENCOUNTER → 2024-06-06 | Outpatient (CLI) | payer MEDICARE | LOC: M PAIN 16:00 | PROVIDERS: ATTEND Anesthesiology | DX: M51.16 Intervertebral disc disorders with radiculopathy, lumbar region (principal); M47.812 Spondylosis without myelopathy or radiculopathy, cervical region; Z79.899 Other long term (current) drug therapy; Z88.8 Allergy status to other drugs, medicaments and biological substances; Z88.6 Allergy status to analgesic agent; Z91.048 Other nonmedicinal substance allergy status; Z88.5 Allergy status to narcotic agent ==

== ENCOUNTER → 2024-07-07 | Outpatient (CLI) | payer MEDICARE | LOC: M PAIN 17:00 | PROVIDERS: ATTEND Anesthesiology | DX: M51.16 Intervertebral disc disorders with radiculopathy, lumbar region (principal); F17.210 Nicotine dependence, cigarettes, uncomplicated; Z79.899 Other long term (current) drug therapy; Z88.6 Allergy status to analgesic agent; Z88.8 Allergy status to other drugs, medicaments and biological substances; Z91.048 Other nonmedicinal substance allergy status ==

== ENCOUNTER → 2024-08-29 | Outpatient (CLI) | payer MEDICARE ==
[2024-08-29 18:48] LABS: HEMATOCRIT 44.4 % (36.0-47.0); HEMOGLOBIN 14.4 g/dl (12.0-15.5); MEAN CORPUSCULAR HEMOGLOBIN 29.6 pg (27.0-33.0); MEAN CORPUSCULAR HGB CONC 32.4 g/dl (32.0-36.5); MEAN CORPUSCULAR VOLUME 91.2 fl (80.0-96.0); PLATELET COUNT, AUTOMATED 486 10^3/uL (150-450); RED BLOOD COUNT 4.87 10^6/uL (4.00-5.40)
[2024-08-29 18:53] LABS: HEMOGLOBIN A1c 5.2 % (4.0-6.0)
[2024-08-29 19:13] LABS: ALBUMIN 3.6 G/DL (3.2-5.2); ALKALINE PHOSPHATASE 96 U/L (35-104); ALT/SGPT 31 U/L (7.0-40); AST/SGOT 16 U/L (<34); BILIRUBIN,TOTAL 0.2 MG/DL (0.3-1.2); BLOOD UREA NITROGEN 11 MG/DL (9-23); CALCIUM LEVEL 9.5 MG/DL (8.5-10.1); CARBON DIOXIDE LEVEL 31 MMOL/L (20-31); CHLORIDE LEVEL 103 MMOL/L (98-107); CHOLESTEROL LEVEL 244 MG/DL (<200); CHOLESTEROL RISK RATIO 5.12 (<5); CREATININE FOR GFR 0.98 MG/DL (0.55-1.30); GLOMERULAR FILTRATION RATE > 60.0 (>51); GLUCOSE, FASTING 108 MG/DL (60-100); HDL CHOLESTEROL 47.6 MG/DL (>40); LDL CHOLESTEROL 138.8 MG/DL (<100); NON-HDL-C 196.4 MG/DL; POTASSIUM SERUM 4.3 MMOL/L (3.5-5.1); SODIUM LEVEL 140 MMOL/L (136-145); TRIGLYCERIDES LEVEL 288 MG/DL (<150)
[2024-08-29 19:14] LABS: THYROID STIMULATING HORMONE 1.269 uIU/ML (0.55-4.78)
[2024-08-30 06:46] LABS: WHITE BLOOD COUNT 12.7 10^3/uL (4.0-10.0)
== END ==
LOC: M WUC 11:58
PROVIDERS: ATTEND Physician Assistant
DX: E78.5 Hyperlipidemia, unspecified (principal); R73.03 Prediabetes

== ENCOUNTER → 2025-04-10 | Outpatient (CLI) | payer MEDICARE ==
[~2025-04-10] MED LIST changes: +BUPR150T15 PO; -BUPR1TAB53 PO
[2025-04-10 14:09] LABS: BASO # 0.1 10^3/uL (0.0-0.2); BASO % 0.8 % (0.0-1.0); EOS # 0.3 10^3/uL (0.0-0.5); EOS % 3.2 % (0.0-3.0); LYMPH # 3.5 10^3/uL (1.5-5.0); LYMPH % 35.6 % (24.0-44.0); MONO # 0.5 10^3/uL (0.0-0.8); MONO % 5.5 % (2.0-8.0); NEUTROPHILS # 5.4 10^3/uL (1.5-8.5); NEUTROPHILS % 54.6 % (36.0-66.0); PLATELET COUNT, AUTOMATED 502 10^3/uL (150-450)
[2025-04-10 14:37] LABS: RHEUMATOID FACTOR QUANT < 3.5 IU/ML (<14)
[2025-04-10 14:45] LABS: ESTIMATED AVERAGE GLUCOSE 117.0 MG/DL (60-110)
[2025-04-10 14:51] LABS: ALT/SGPT 23 U/L (7.0-40); AST/SGOT 20 U/L (<34); CALCIUM LEVEL 9.7 MG/DL (8.5-10.1); CARBON DIOXIDE LEVEL 29 MMOL/L (20-31); CHLORIDE LEVEL 102 MMOL/L (98-107); CREATININE FOR GFR 1.10 MG/DL (0.55-1.30); FREE T4 1.19 NG/DL (0.89-1.76); GLOMERULAR FILTRATION RATE 60.8 (>51); POTASSIUM SERUM 4.8 MMOL/L (3.5-5.1); SODIUM LEVEL 139 MMOL/L (136-145); VITAMIN B12 LEVEL 1042 PG/ML (211-911)
[2025-04-11 06:48] LABS: ERYTHROCYTE SEDIMENTATION RATE 8 mm/hr (0-20)
[2025-04-13 03:32] LABS: VITAMIN E(ALPHA TOCOPHEROL) 20.4 mg/L (5.7-19.9); VITAMIN E(GAMMA TOCOPHEROL) < 1.0 mg/L (<=4.3)
== END ==
LOC: M LAB 12:52
PROVIDERS: ATTEND Psychiatry & Neurology Neurology
DX: E53.8 Deficiency of other specified B group vitamins (principal); M25.50 Pain in unspecified joint; M79.10 Myalgia, unspecified site; E07.9 Disorder of thyroid, unspecified; E11.9 Type 2 diabetes mellitus without complications; R20.0 Anesthesia of skin